=== PATIENT | female | born 1955 | race Two or more races ===

== ENCOUNTER → 2024-01-02 | Outpatient (CLI) | payer MEDICARE, MEDICAID, SELFPAY ==
[2024-01-02 08:52] LABS: Misc Send Out* See Sep Rpt
== END | disposition home or self-care (01) ==
PROVIDERS: PCP Family Medicine; Referring Provider Internal Medicine Hematology & Oncology; Visit Provider Internal Medicine Hematology & Oncology
DX: C18.2 Malignant neoplasm of ascending colon (principal)

== ENCOUNTER 2024-03-05 12:00 | Outpatient (RCR) | payer MEDICARE, MEDICAID, SELFPAY ==
[2024-02-14 16:16] LABS: Basophils # (Auto) 0.1 Thou/mm3 (0.0-0.2); Basophils % (Auto) 0 % (0-2.5); Eosinophils # (Auto) 0.3 Thou/mm3 (0.0-0.5); Eosinophils % (Auto) 2 % (0-10); Hematocrit 31.3 % (36.0-46.0); Immature Granulocytes % (Auto) 0 % (0-0); Immature Granulocytes Auto 0.04 Thou/mm3 (0.00-0.00); Lymphocytes # (Auto) 3.8 Thou/mm3 (1.0-4.8); Lymphocytes % (Auto) 30 % (10-50); Mean Corpuscular HGB Conc 31.9 g/dl (31.0-37.0); Mean Corpuscular Hemoglobin 25.8 pg (25.0-35.0); Mean Corpuscular Volume 81 fL (80-100); Monocytes % (Auto) 8 % (0-12); Neutrophils # (Auto) 7.4 Thou/mm3 (1.8-7.7); Neutrophils % (Auto) 59 % (37-80); Nucleated Red Blood Cell % 0 /100 WBC (0); Platelet Count 394 Thou/mm3 (140-440); RDW Standard Deviation 50.1 fL (36.4-46.3); Red Blood Count 3.87 Miln/mm3 (4.00-5.20); White Blood Count 12.6 Thou/mm3 (3.6-11.0)
[2024-02-14 16:36] LABS: Alanine Aminotransferase 13 U/L (10-49); Albumin/Globulin Ratio 0.9 (1.2-2.2); Alkaline Phosphatase 149 U/L (46-116); Anion Gap 7 (7-16); Aspartate Amino Transferase 27 U/L (0-34); BUN/Creatinine Ratio 20 Ratio (12-20); Bilirubin,Total 0.2 mg/dL (0.3-1.2); Blood Urea Nitrogen 28 mg/dL (9-23); Calcium 9.1 mg/dL (8.3-10.6); Calcium (Corrected) 9.1 mg/dL (8.5-10.1); Carbon Dioxide 25.7 mMol/L (20.0-31.0); Chloride 100 mMol/L (98-107); Creatinine (Component) 1.4 mg/dL (0.6-1.3); Globulin 4.4 gm/dL (2.3-3.5); Glucose 190 mg/dL (74-106); Osmolality,Calculated 276 (275-295); Potassium 3.9 mMol/L (3.4-5.1); Sodium 133 mMol/L (136-145); Total Protein 8.4 gm/dL (5.7-8.2); eGFR 41 See Note
[2024-02-15 09:23] LABS: Basophils # (Auto) 0.1 Thou/mm3 (0.0-0.2); Basophils % (Auto) 0 % (0-2.5); Eosinophils # (Auto) 0.2 Thou/mm3 (0.0-0.5); Eosinophils % (Auto) 2 % (0-10); Hematocrit 32.4 % (36.0-46.0); Hemoglobin 10.6 g/dL (12.0-16.0); Immature Granulocytes % (Auto) 0 % (0-0); Immature Granulocytes Auto 0.03 Thou/mm3 (0.00-0.00); Lymphocytes # (Auto) 2.8 Thou/mm3 (1.0-4.8); Lymphocytes % (Auto) 25 % (10-50); Mean Corpuscular HGB Conc 32.7 g/dl (31.0-37.0); Mean Corpuscular Hemoglobin 26.1 pg (25.0-35.0); Mean Corpuscular Volume 80 fL (80-100); Monocytes # (Auto) 0.7 Thou/mm3 (0.0-0.8); Monocytes % (Auto) 6 % (0-12); Neutrophils # (Auto) 7.5 Thou/mm3 (1.8-7.7); Neutrophils % (Auto) 67 % (37-80); Nucleated Red Blood Cell % 0 /100 WBC (0); Platelet Count 378 Thou/mm3 (140-440); RDW Standard Deviation 49.7 fL (36.4-46.3); Red Blood Count 4.06 Miln/mm3 (4.00-5.20); White Blood Count 11.3 Thou/mm3 (3.6-11.0)
[2024-02-15 09:42] LABS: Alanine Aminotransferase 23 U/L (10-49); Albumin, Serum 4.1 gm/dL (3.4-4.8); Albumin/Globulin Ratio 0.9 (1.2-2.2); Alkaline Phosphatase 152 U/L (46-116); Anion Gap 9 (7-16); Aspartate Amino Transferase 18 U/L (0-34); BUN/Creatinine Ratio 22 Ratio (12-20); Bilirubin,Total 0.2 mg/dL (0.3-1.2); Blood Urea Nitrogen 26 mg/dL (9-23); Calcium 9.5 mg/dL (8.3-10.6); Calcium (Corrected) 9.5 mg/dL (8.5-10.1); Chloride 100 mMol/L (98-107); Creatinine (Component) 1.2 mg/dL (0.6-1.3); Globulin 4.5 gm/dL (2.3-3.5); Glucose 191 mg/dL (74-106); Osmolality,Calculated 276 (275-295); Potassium 3.8 mMol/L (3.4-5.1); Sodium 133 mMol/L (136-145); Total Protein 8.6 gm/dL (5.7-8.2); eGFR 49 See Note
[2024-02-15 09:44] LABS: Carcinoembryonic Antigen 14.8 ng/mL (0.0-5.0); Folate 21.65 ng/mL (>5.38); Vitamin B12 483 pg/mL (211-911)
[2024-02-15 09:51] LABS: Ferritin 31 ng/mL (7.3-270.7); Total Iron Binding Capacity 323 mcg/dL (250-425)
[2024-02-15 10:02] LABS: Iron 33 mcg/dL (50-170); Percent Iron Saturation 10 % (20-55); Unsaturated Iron Binding 290 (225-295)
[2024-02-28 13:56] LABS: Basophils # (Auto) 0.1 Thou/mm3 (0.0-0.2); Basophils % (Auto) 1 % (0-2.5); Eosinophils # (Auto) 0.3 Thou/mm3 (0.0-0.5); Eosinophils % (Auto) 4 % (0-10); Hematocrit 29.2 % (36.0-46.0); Hemoglobin 9.7 g/dL (12.0-16.0); Immature Granulocytes % (Auto) 0 % (0-0); Immature Granulocytes Auto 0.03 Thou/mm3 (0.00-0.00); Lymphocytes # (Auto) 2.3 Thou/mm3 (1.0-4.8); Lymphocytes % (Auto) 31 % (10-50); Mean Corpuscular HGB Conc 33.2 g/dl (31.0-37.0); Mean Corpuscular Hemoglobin 26.4 pg (25.0-35.0); Mean Corpuscular Volume 80 fL (80-100); Monocytes # (Auto) 0.9 Thou/mm3 (0.0-0.8); Monocytes % (Auto) 13 % (0-12); Neutrophils # (Auto) 3.8 Thou/mm3 (1.8-7.7); Neutrophils % (Auto) 51 % (37-80); Nucleated Red Blood Cell % 0 /100 WBC (0); Platelet Count 307 Thou/mm3 (140-440); RDW Standard Deviation 43.8 fL (36.4-46.3); Red Blood Count 3.67 Miln/mm3 (4.00-5.20); White Blood Count 7.5 Thou/mm3 (3.6-11.0)
[2024-02-28 14:53] LABS: Alanine Aminotransferase 286 U/L (10-49); Albumin, Serum 4.1 gm/dL (3.4-4.8); Albumin/Globulin Ratio 1.1 (1.2-2.2); Alkaline Phosphatase 480 U/L (46-116); Anion Gap 7 (7-16); Aspartate Amino Transferase 296 U/L (0-34); BUN/Creatinine Ratio 18 Ratio (12-20); Bilirubin,Total 0.3 mg/dL (0.3-1.2); Blood Urea Nitrogen 21 mg/dL (9-23); Calcium 9.1 mg/dL (8.3-10.6); Calcium (Corrected) 9.1 mg/dL (8.5-10.1); Carbon Dioxide 25.5 mMol/L (20.0-31.0); Chloride 100 mMol/L (98-107); Creatinine (Component) 1.2 mg/dL (0.6-1.3); Globulin 3.9 gm/dL (2.3-3.5); Glucose 162 mg/dL (74-106); Osmolality,Calculated 271 (275-295); Potassium 3.8 mMol/L (3.4-5.1); Sodium 132 mMol/L (136-145); eGFR 49 See Note
[2024-02-28 14:57] LABS: Carcinoembryonic Antigen 21.1 ng/mL (0.0-5.0)
== END 2024-03-10 23:59 | disposition home or self-care (01) ==
LOC: SCTC 12:00
PROVIDERS: PCP Family Medicine; Referring Provider Family Medicine; Visit Provider Internal Medicine Hematology & Oncology
DX: Z51.11 Encounter for antineoplastic chemotherapy (principal); C18.0 Malignant neoplasm of cecum; C23 Malignant neoplasm of gallbladder; Z90.49 Acquired absence of other specified parts of digestive tract; E11.9 Type 2 diabetes mellitus without complications; Z79.4 Long term (current) use of insulin
CPT/HCPCS: 36591; 80053; 82378; 82607; 82728; 82746; 83540; 83550; 85025; 96367; 96368; 96411; 96413; 96415; 96416; 99213; A4216; J0640; J1100; J1453; J1642; J2405; J2997; J3490; J9190; J9263; G0463

== ENCOUNTER 2024-03-08 09:51 | Emergency (ER) | payer MEDICARE, MEDICAID, SELFPAY ==
[2024-03-08 09:52] VITALS: BMI 28.3
[2024-03-08 09:55] VITALS: BP 152/89; PULSE 123; RESP 20; TEMP 38.4; O2SAT 95
--- NOTE | 2024-03-08 10:14 | XR_ITS ---
Examination: PA lateral chest 2 views Technique: Upright PA lateral chest 2 views Exam date and time: March 08, 2024 1045 hrs. Indications: Fever today, diagnosis malignant neoplasm of the colon Findings: Normal heart size Suspicious for early left base pneumonia No significant cardiac enlargement No subclavian Port-A-Cath tip satisfactory position Mild osteopenia Impression: Suspicious for early left base pneumonia
--- NOTE | 2024-03-08 10:14 | EKG_ITS ---
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
--- NOTE | 2024-03-08 10:17 | EDNOTE_ITS ---
ED General RME/HPI General Chief complaint: General Adult/Misc Complain Stated complaint: NECK,BACK PAIN HX OF COLON CANCER Time Seen by Provider: 03/08/24 09:54 Arrival date/time: 03/08/24 09:51 Limitations: language barrier RME / HPI RME / HPI narrative: Chief Complaint: The patient was brought in by her son, who also serves as her manager switch, with complaints of body aches since yesterday. The patient was unaware that she had a fever. History of Present Illness: The patient has been experiencing body aches since yesterday and was not aware of a fever. She has a history of colon cancer but had to discontinue her chemotherapy treatment due to liver injury. Medical History: * Colon Cancer * Liver Injury (due to chemotherapy) * DM * HTN Related Data Home Medications ?Medication ?Instructions ?Recorded ?Confirmed insulin glargine 100 unit/mL (3 20 unit subcut HS 11/16/23 02/06/24 mL) subcutaneous pen (GateGuruaglar KwikPen U-100 Insulin) sitagliptin phosphate 100 mg 100 mg PO QDAY 11/16/23 02/06/24 tablet (Januvia) atorvastatin 40 mg tablet 20 mg PO QDAY 11/17/23 02/06/24 empagliflozin 25 mg tablet 25 mg PO QDAY 11/17/23 02/06/24 (Jardiance) losartan 50 mg-hydrochlorothiazide 1 tab PO QDAY 12/21/23 02/06/24 12.5 mg tablet Previous Rx's ?Medication ?Instructions ?Recorded ascorbic acid (vitamin C) 250 mg 500 mg (2 x 250 mg) PO BID #60 tabs 11/26/23 tablet (Vitamin C) zinc sulfate 50 mg zinc (220 mg) 220 mg (4.4 x 50 mg zinc (220 mg)) 11/26/23 capsule PO QDAY #30 caps docusate sodium 100 mg capsule 100 mg PO BID #30 caps 02/07/24 (Colace) hydrocodone 5 mg-acetaminophen 325 1 tab PO Q6H PRN pain (scale score 02/07/24 mg tablet 7-10) #15 tabs hydrocodone 5 mg-acetaminophen 325 1 tab PO BID PRN pain #7 tabs 03/08/24 mg tablet Allergies Allergy/AdvReac Type Severity Reaction Status Date / Time ibuprofen AdvReac Intermediate Gastrointestinal Verified 03/08/24 09:54 Upset Review of Systems Review of Systems Systems Reviewed: All systems reviewed, normal except as documented ED Exam General Limitations: Present language barrier General appearance: Present alert and in no apparent distress Head Head exam: Present atraumatic Eye Eye exam: Present normal appearance Neck Neck exam: Present normal inspection Respiratory Respiratory exam: Present normal lung sounds bilaterally Cardiovascular Cardiovascular exam: Present regular rate and normal rhythm Abdominal Exam Abdominal exam: Present soft and normal bowel sounds Back Exam Back exam: Present normal inspection Neurological Exam Neurological exam: Present alert and CN II-XII intact Psychiatric Psychiatric exam: Present depressed Skin Skin exam: Present normal color Course Quality Measures none Orders Category Date Time Status Bedside COVID-19 Antigen Test NOW Care 03/08/24 10:14 Active Bedside Influenza A&B Antigen Test NOW Care 03/08/24 10:16 Active Procurement Consultant STAT Care 03/08/24 10:14 Active Continuous Pulse Oximetry STAT Care 03/08/24 10:14 Completed EKG (ED ONLY) *Do not use* NOW Care 03/08/24 10:14 Completed EKG (ED Only) Stat Exams 03/08/24 10:14 Draft XR chest 2V Stat Exams 03/08/24 10:14 Taken B-Type Natriuretic Peptide Stat Lab 03/08/24 10:28 Completed Blood Culture (Lab) Stat Lab 03/08/24 10:28 Ordered CBC Stat Lab 03/08/24 10:28 Completed Comprehensive Metabolic Panel Stat Lab 03/08/24 10:28 Completed LDH (Lactate Dehydrogenase) Stat Lab 03/08/24 10:28 Completed Lactate (Lactic Acid) Stat Lab 03/08/24 10:28 Completed Lipase Stat Lab 03/08/24 10:28 Completed Magnesium Stat Lab 03/08/24 10:28 Completed Partial Thromboplastin Time Stat Lab 03/08/24 10:28 Completed Phosphorous Stat Lab 03/08/24 10:28 Completed Procalcitonin Stat Lab 03/08/24 10:28 Completed Prothrombin Time with INR Stat Lab 03/08/24 10:28 Completed Troponin I Stat Lab 03/08/24 10:28 Completed Urinalysis Stat Lab 03/08/24 10:14 Ordered Urine Culture Stat Lab 03/08/24 10:14 Ordered HYDROcodone/APAP 10/325 [[place] 10/325] Med 03/08/24 10:17 Discontinued 1 tab PO X1 ONE Vital Signs Vital signs: Vital Signs Temperature 101.1 F H 03/08/24 09:55 Pulse Rate 123 H 03/08/24 09:55 Respiratory Rate 20 03/08/24 09:55 Blood Pressure 152/89 H 03/08/24 09:55 Pulse Oximetry (%) 95 03/08/24 09:55 Oxygen Delivery Method Room Air 03/08/24 09:55 MDM Patient data External records reviewed:: [facility] previous records Clinical information provided by:: patient and family Social determinants that could affect healthcare access:: none Patient has the following chronic illnesses:: Colon cancer How is presenting disease/condition affected by chronic disease/condition?: c aused by Evaluation data The following diagnostics were reviewed and interpreted by me:: lab results Lab and/or radiology exams considered but not ordered:: White count is 19,000. Patient was not aware that she had a fever until she came to emergency department. COVID and influenza are negative. Patient has a generic type of virus that is causing her body aches. Does not have any emergency medical conditions at this time. EKG and labs other than the white count are unremarkable. Chest x-ray preliminary report showed no acute abnormality, including pneumonia. Return precautions were discussed. Patient's body aches is secondary to 2 conditions. 1 is her cancer and second is the viral illness Interpretation Summary: As above Medications Medications considered but not ordered:: Not applicable Medication administrations:: Medication Administration History Discontinued Medications Hydrocodone Bitart/Acetaminophen (Hydrocodone/Apap 10/325 Tab) 1 tab PO X1 ONE Stop: 03/08/24 10:18 Last Admin: 03/08/24 10:33 Dose: 1 tab Documented By: RD As noted Consultations Consultation(s) initiated? (list below): No Diagnosis Differential Diagnosis ED Complaint MDM: Viral illness, COVID, influenza, pneumonia Most likely diagnosis given after review of the tests above:: Viral syndrome Admission Indicated Admission indicated?: not indicated Explain why admission is indicated or not indicated:: Not applicable Admission Request Was there a request for admission?: No Disposition Plan Disposition Plan: Discharge Discharge Attestation Discharge Attestation: The patient and all family members were given an opportunity to ask questions and understood the discharge instructions. Discharge instructions specifically effects, indications for sooner follow up or return to the emergency department, and the expected course of current diagnosis. Patient condition: Stable Medical Decision Making Differential Diagnosis Differential Diagnosis: Viral illness, COVID, influenza, pneumonia Lab Data 03/08/24 10:28 03/08/24 10:28 Labs: Lab Results 03/08/24 Range/Units 10:28 WBC 19.6 H (3.6-11.0) Thou/mm3 RBC 4.49 (4.00-5.20) Miln/mm3 Hgb 11.7 L (12.0-16.0) g/dL Hct 35.8 L (36.0-46.0) % MCV 80 (80-100) fL MCH 26.1 (25.0-35.0) pg MCHC 32.7 (31.0-37.0) g/dl RDW Std Deviation 45.6 (36.4-46.3) fL Plt Count 461 H D (140-440) Thou/mm3 Neut % (Auto) 69 (37-80) % Lymph % (Auto) 18 (10-50) % [place] % (Auto) 11 (0-12) % Eos % (Auto) 1 (0-10) % Baso % (Auto) 1 (0-2.5) % Neut # (Auto) 13.6 H (1.8-7.7) Thou/mm3 Lymph # (Auto) 3.6 (1.0-4.8) Thou/mm3 [place] # (Auto) 2.2 H (0.0-0.8) Thou/mm3 Eos # (Auto) 0.1 (0.0-0.5) Thou/mm3 Baso # (Auto) 0.1 (0.0-0.2) Thou/mm3 Immature Gran # (Auto) 0.11 H (0.00-0.00) Thou/mm3 Absolute Nucleated RBC 0.00 (0.00-0.00) Thou/mm3 Immature Gran % 1 H (0-0) % Nucleated RBC % 0 (0) /100 WBC PT 11.1 (9.0-12.2) Seconds INR 1.0 (0.9-1.3) APTT 27.6 (22.0-36.0) Seconds Sodium 131 L (136-145) mMol/L Potassium 3.9 (3.4-5.1) mMol/L Chloride 98 (98-107) mMol/L Carbon Dioxide 25.0 (20.0-31.0) mMol/L Anion Gap 8 (7-16) BUN 25 H (9-23) mg/dL Creatinine 1.4 H (0.6-1.3) mg/dL Estim Creat Clear Calc 30.7 L (>60) mL/min eGFR 41 L (60 - ) See Note BUN/Creatinine Ratio 18 (12-20) Ratio Glucose 150 H (74-106) mg/dL Calculated Osmolality 270 L (275-295) Lactic Acid 1.5 (0.4-2.0) mMol/L Calcium 9.8 (8.3-10.6) mg/dL Corrected Calcium 9.8 (8.5-10.1) mg/dL Phosphorus 4.7 (2.4-5.1) mg/dL Magnesium 2.4 (1.6-2.6) mg/dL Total Bilirubin 0.5 (0.3-1.2) mg/dL AST 311 H (0-34) U/L ALT 290 H (10-49) U/L Alkaline Phosphatase 722 H (46-116) U/L Lactate Dehydrogenase 283 H (120-246) U/L Troponin I < 0.002 (0.0-0.045) ng/mL B-Natriuretic Peptide < 20 (0-100) pg/mL Total Protein 9.5 H (5.7-8.2) gm/dL Albumin 4.5 (3.4-4.8) gm/dL Globulin 5.0 H (2.3-3.5) gm/dL Albumin/Globulin Ratio 0.9 L (1.2-2.2) Lipase 165 H (12-53) U/L Procalcitonin 0.21 (0.0-0.49) ng/ml Discharge Plan Plan Patient Disposition: HOME (Self Care) Patient condition on transfer: Stable Prescriptions/Referrals Prescriptions/Med Rec: New hydrocodone-acetaminophen 5-325 mg tablet 1 tab PO BID MDD 3 PRN (Reason: pain) Qty: 7 0RF No Action ascorbic acid (vitamin C) [Vitamin C] 250 mg Tablet 500 mg PO BID Qty: 60 0RF zinc sulfate 50 mg zinc (220 mg) Capsule 220 mg PO QDAY Qty: 30 0RF docusate sodium [Colace] 100 mg capsule 100 mg PO BID Qty: 30 0RF hydrocodone-acetaminophen 5-325 mg tablet 1 tab PO Q6H MDD 4 PRN (Reason: pain (scale score 7-10)) Qty: 15 0RF Januvia 100 mg tablet 100 mg PO QDAY Patient Comments: TAKE 1 TABLET BY MOUTH EVERY DAY insulin glargine [Basaglar KwikPen U-100 Insulin] 100 unit/mL (3 mL) insulin pen 20 unit SUBCUT HS Patient Comments: INJECT 10 UNITS SUBCUTANEOUS EVERY DAY IN THE EVENING atorvastatin 40 mg tablet 20 mg PO QDAY Patient Comments: TAKE 1 TABLET BY MOUTH EVERY DAY Jardiance 25 mg tablet 25 mg PO QDAY Patient Comments: TAKE 1 TABLET BY MOUTH EVERY DAY FOR 90 DAYS losartan-hydrochlorothiazide 50-12.5 mg Tablet 1 tab PO QDAY Referrals: Rd Hickey MD [Primary Care Provider] - In 1 week Problem List Clinical Impression: Acute viral syndrome Patient/Caregiver Discharge Instructions Education Materials: ED Viral Syndrome (Adult) Print Language: Paraguayan Stand Alone Forms: Vielka Award Info., Patient Portal Info Letter
[2024-03-08] MEDS: HYDROcodone/APAP 10/325 TAB PO (10:33)
[2024-03-08 10:36] LABS: Lactate (Lactic Acid) 1.5 mMol/L (0.4-2.0)
[2024-03-08 10:39] VITALS: PULSE 123
[2024-03-08 10:41] LABS: Basophils # (Auto) 0.1 Thou/mm3 (0.0-0.2); Basophils % (Auto) 1 % (0-2.5); Eosinophils # (Auto) 0.1 Thou/mm3 (0.0-0.5); Eosinophils % (Auto) 1 % (0-10); Hematocrit 35.8 % (36.0-46.0); Hemoglobin 11.7 g/dL (12.0-16.0); Immature Granulocytes % (Auto) 1 % (0-0); Immature Granulocytes Auto 0.11 Thou/mm3 (0.00-0.00); Lymphocytes # (Auto) 3.6 Thou/mm3 (1.0-4.8); Lymphocytes % (Auto) 18 % (10-50); Mean Corpuscular HGB Conc 32.7 g/dl (31.0-37.0); Mean Corpuscular Hemoglobin 26.1 pg (25.0-35.0); Mean Corpuscular Volume 80 fL (80-100); Monocytes # (Auto) 2.2 Thou/mm3 (0.0-0.8); Monocytes % (Auto) 11 % (0-12); Neutrophils # (Auto) 13.6 Thou/mm3 (1.8-7.7); Neutrophils % (Auto) 69 % (37-80); Nucleated Red Blood Cell % 0 /100 WBC (0); Platelet Count 461 Thou/mm3 (140-440); RDW Standard Deviation 45.6 fL (36.4-46.3); Red Blood Count 4.49 Miln/mm3 (4.00-5.20); White Blood Count 19.6 Thou/mm3 (3.6-11.0)
[2024-03-08 10:56] LABS: B-Type Natriuretic Peptide < 20 pg/mL (0-100)
[2024-03-08 10:58] LABS: Partial Thromboplastin Time 27.6 Seconds (22.0-36.0); Prothrombin Time 11.1 Seconds (9.0-12.2)
[2024-03-08 10:59] LABS: Alanine Aminotransferase 290 U/L (10-49); Albumin, Serum 4.5 gm/dL (3.4-4.8); Albumin/Globulin Ratio 0.9 (1.2-2.2); Alkaline Phosphatase 722 U/L (46-116); Anion Gap 8 (7-16); Aspartate Amino Transferase 311 U/L (0-34); BUN/Creatinine Ratio 18 Ratio (12-20); Bilirubin,Total 0.5 mg/dL (0.3-1.2); Blood Urea Nitrogen 25 mg/dL (9-23); Calcium 9.8 mg/dL (8.3-10.6); Calcium (Corrected) 9.8 mg/dL (8.5-10.1); Chloride 98 mMol/L (98-107); Creatinine (Component) 1.4 mg/dL (0.6-1.3); Estimated Creatinine Clearance 30.7 mL/min (>60); Glucose 150 mg/dL (74-106); Lipase 165 U/L (12-53); Magnesium 2.4 mg/dL (1.6-2.6); Osmolality,Calculated 270 (275-295); Phosphorous 4.7 mg/dL (2.4-5.1); Potassium 3.9 mMol/L (3.4-5.1); Sodium 131 mMol/L (136-145); Total Protein 9.5 gm/dL (5.7-8.2); Troponin I < 0.002 ng/mL (0.0-0.045); eGFR 41 See Note
[2024-03-08 11:08] VITALS: BP 138/86; PULSE 113; RESP 16; TEMP 38.1; O2SAT 94
[2024-03-08 11:13] LABS: LDH (Lactate Dehydrogenase) 283 U/L (120-246); Procalcitonin 0.21 ng/ml (0.0-0.49)
[2024-03-08 12:09] LABS: Collection Type, Urine Clean Catch
[2024-03-08 12:14] LABS: Bilirubin,Urine Negative (Negative); Blood,Urine Negative (Negative); Clarity,Urine Clear (Clear/Hazy); Color,Urine Yellow (Lt Yel-Yel); Glucose, Urine 4+ (Negative); Ketones,Urine Negative (Negative); Leukocyte Esterase,Urine Negative (Negative); Nitrite,Urine Negative (Negative); Protein,Urine 1+ (Neg - Trace); RBC,Urine 1 /hpf (0-3); Squamous Epithelial Cell,Urine 1 /hpf (0-5); Urobilinogen,Urine Negative mg/dL (0.0-1.0); WBC,Urine 2 /hpf (0-5)
[2024-03-08 13:00] VITALS: BP 114/76; PULSE 94; RESP 16; TEMP 36.8; O2SAT 93
--- NOTE | 2024-03-08 13:20 | PC.NURSE ---
Patient states pain 10/10. Received verbal order from provider for 1mg Hydromorphone IV.
[2024-03-08] MEDS: ONDANSETRON INJ 2 MG/ML INJ 2 ML 4 MG IV (13:35)
[2024-03-08] MEDS: HYDROmorphone INJ 2 MG/ML VIAL 1 MG IVP (13:36)
== END 2024-03-08 14:11 | disposition home or self-care (01) ==
PROVIDERS: Emergency Provider Emergency Medicine; PCP Family Medicine
DX: B34.9 Viral infection, unspecified (principal); R00.0 Tachycardia, unspecified
CPT/HCPCS: 36415; 71046; 80053; 81001; 83605; 83615; 83690; 83735; 83880; 84100; 84145; 84484; 85025; 85610; 85730; 87040; 87086; 87400; 87811; 93005; 96374; 96375; 99284; J2405; J3490; A9270

== ENCOUNTER → 2024-03-14 | Outpatient (CLI) | payer MEDICARE, MEDICAID, SELFPAY ==
--- NOTE | 2024-03-14 11:30 | XR_ITS ---
Examination: CT chest with intravenous contrast CT abdomen with intravenous contrast CT pelvis with intravenous contrast 2-D coronal and sagittal reconstructions Time of exam: March 14, [address] chest November 24, 2023, PET CT scan November 17, 2023 INDICATIONS: Diagnosis malignant neoplasm ascending colon, PET/CT scan November 17, 2023 12 mm hypermetabolic focus anterior abdominal wall, cervical lymphadenopathy, restaging, currently undergoing treatment CTDI: vol (mGy) : 18.7 DLP: (mGycm): 802 Technique: Multiple axial images of the chest, abdomen and pelvis with intravenous contrast, 3.0 mm slice thickness. Images obtained post intravenous injection Isovue 370 60 cc. 2-D sagittal and coronal reconstructions. Low dose protocols were performed. One or more of the following dose reduction techniques were used; automated exposure control, adjustment of the mA and/or KV according to patient size, use of iterative reconstruction technique. Findings: No thoracic aortic aneurysmal dilatation No pulmonary artery emboli No paratracheal tracheobronchial or bronchopulmonary adenopathy Mild vascular congestion No pneumonia or pulmonary edema or pleural disease or pulmonary nodules No visualized liver lesions Spleen not enlarged No pancreatic or adrenal mass No periaortic pericaval lymphadenopathy No hydronephrosis No pericecal inflammatory change No pelvic lymphadenopathy Retroverted uterus No adnexal mass Contracted urinary bladder Moderate osteopenia Grade 1 anterolisthesis L4 on L5, no osseous metastatic disease IMPRESSION: No mediastinal lymphadenopathy No pneumonia, pulmonary edema, pleural disease or pulmonary nodules Negative for hepatic metastases No abdominal or pelvic lymphadenopathy No osseous metastatic disease
== END | disposition home or self-care (01) ==
PROVIDERS: PCP Family Medicine; Referring Provider Internal Medicine Hematology & Oncology; Visit Provider Internal Medicine Hematology & Oncology
DX: C18.2 Malignant neoplasm of ascending colon (principal); C23 Malignant neoplasm of gallbladder
CPT/HCPCS: 71260; 74177; A4649; Q9967

== ENCOUNTER 2024-04-03 10:43 | Emergency (ER) | payer MEDICARE, MEDICAID, SELFPAY ==
--- NOTE | 2024-04-03 | XR_ITS ---
MRI abdomen, without contrast. MRCP Date and time of exam: April 03, 2024 1446 hrs. Indications: Colon cancer diagnosis with elevated liver function values on laboratory examination today Technique: Multiple axial and coronal images of the abdomen have been obtained with the Siemens 1.5T MRI scanner. Images obtained included T1 weighted transverse images, T2-weighted transverse images, T2-weighted transverse images fat-suppressed, T2 weighted haste fat suppressed transverse images, T1 weighted images, in and out of phase images, T2-weighted coronal images, breath hold, T2 weighted haze coronal images as well as T2 weighted coronal thick slab images, MRCP. Findings: No focal liver lesions, no intrahepatic biliary tract dilatation Gallbladder not visualized Normal common hepatic common bile duct no common hepatic or common bile duct stones No pancreatic mass or peripancreatic edema Spleen is not enlarged 21 mm mid left renal calculus No hydronephrosis Aorta normal size No ascites Impression: No focal liver lesions or intrahepatic biliary tract dilatation Normal common hepatic common bile duct Negative for pancreatitis
[2024-04-03 11:16] VITALS: BP 140/85; PULSE 100; RESP 17; TEMP 37.1; O2SAT 97; BMI 29.0
--- NOTE | 2024-04-03 11:25 | PD.EDRME ---
Rapid Medical Screening Exam RME Arrival date/time: 04/03/24 10:43 68-year-old female with colon cancer currently on chemotherapy with no stated complaints presents emergency department today stating that the cancer treatment center sent to the ER for further evaluation for abnormal lab work Chief Complaint: General Adult/Misc Complain Vital signs: Vital Signs Temperature 98.7 F 04/03/24 11:16 Pulse Rate 100 04/03/24 11:16 Respiratory Rate 17 04/03/24 11:16 Blood Pressure 140/85 H 04/03/24 11:16 Pulse Oximetry (%) 97 04/03/24 11:16 Oxygen Delivery Method Room Air 04/03/24 11:16
[2024-04-03 11:50] LABS: Basophils # (Auto) 0.1 Thou/mm3 (0.0-0.2); Basophils % (Auto) 1 % (0-2.5); Eosinophils # (Auto) 0.2 Thou/mm3 (0.0-0.5); Eosinophils % (Auto) 2 % (0-10); Hematocrit 32.9 % (36.0-46.0); Hemoglobin 10.7 g/dL (12.0-16.0); Immature Granulocytes % (Auto) 0 % (0-0); Immature Granulocytes Auto 0.04 Thou/mm3 (0.00-0.00); Lymphocytes % (Auto) 24 % (10-50); Mean Corpuscular HGB Conc 32.5 g/dl (31.0-37.0); Mean Corpuscular Hemoglobin 26.3 pg (25.0-35.0); Mean Corpuscular Volume 81 fL (80-100); Monocytes # (Auto) 0.9 Thou/mm3 (0.0-0.8); Monocytes % (Auto) 7 % (0-12); Neutrophils # (Auto) 8.2 Thou/mm3 (1.8-7.7); Neutrophils % (Auto) 66 % (37-80); Nucleated Red Blood Cell % 0 /100 WBC (0); Platelet Count 411 Thou/mm3 (140-440); RDW Standard Deviation 46.9 fL (36.4-46.3); Red Blood Count 4.07 Miln/mm3 (4.00-5.20); White Blood Count 12.4 Thou/mm3 (3.6-11.0)
[2024-04-03 12:09] LABS: Alanine Aminotransferase 173 U/L (10-49); Albumin, Serum 4.4 gm/dL (3.4-4.8); Albumin/Globulin Ratio 0.8 (1.2-2.2); Alkaline Phosphatase 577 U/L (46-116); Anion Gap 7 (7-16); Aspartate Amino Transferase 222 U/L (0-34); BUN/Creatinine Ratio 23 Ratio (12-20); Bilirubin,Total 0.5 mg/dL (0.3-1.2); Blood Urea Nitrogen 32 mg/dL (9-23); Calcium 9.6 mg/dL (8.3-10.6); Calcium (Corrected) 9.6 mg/dL (8.5-10.1); Carbon Dioxide 27.1 mMol/L (20.0-31.0); Chloride 96 mMol/L (98-107); Creatinine (Component) 1.4 mg/dL (0.6-1.3); Estimated Creatinine Clearance 29.8 mL/min (>60); Globulin 5.7 gm/dL (2.3-3.5); Glucose 142 mg/dL (74-106); Lipase 83 U/L (12-53); Osmolality,Calculated 269 (275-295); Potassium 4.4 mMol/L (3.4-5.1); Sodium 130 mMol/L (136-145); Total Protein 10.1 gm/dL (5.7-8.2); eGFR 41 See Note
[2024-04-03 12:43] LABS: Collection Type, Urine Clean Catch
[2024-04-03 12:52] LABS: HCG Qualitative,Urine Negative
[2024-04-03 12:58] LABS: Bacteria,Urine Rare; Bilirubin,Urine Negative (Negative); Blood,Urine Negative (Negative); Clarity,Urine Clear (Clear/Hazy); Color,Urine Lt-Yellow (Lt Yel-Yel); Glucose, Urine 4+ (Negative); Ketones,Urine Negative (Negative); Leukocyte Esterase,Urine Positive (Negative); Nitrite,Urine Negative (Negative); Protein,Urine Negative (Neg - Trace); RBC,Urine 5 /hpf (0-3); Specific Gravity,Urine 1.021 (1.001-1.035); Squamous Epithelial Cell,Urine < 1 /hpf (0-5); Urobilinogen,Urine Negative mg/dL (0.0-1.0); WBC,Urine 13 /hpf (0-5)
[2024-04-03 12:59] LABS: Culture Indicated,Urine Yes
[2024-04-03 13:30] VITALS: BP 141/90; PULSE 106; RESP 16; O2SAT 100
--- NOTE | 2024-04-03 13:30 | PC.NURSE ---
pt sent from cancer treatment center due to elevated liver enzymes. pt pt and family liver enzymes have been elevated since first chemo given in february
--- NOTE | 2024-04-03 13:40 | EDNOTE_ITS ---
<Statement entered by Sintia Bermeo MD - 04/03/24 16:20> As co-signing physician, I was present and available for consult prn. I concur with the plan and care as documented by the midlevel provider. ED General RME/HPI General Chief complaint: General Adult/Misc Complain Stated complaint: Sent by oncologist for elevated liver enzymes/kidn Time Seen by Provider: 04/03/24 13:34 Arrival date/time: 04/03/24 10:43 CC: Concern for an occluded biliary duct HPI patient referred from the oncologist, Dr. Garcia for the patient's having recurrent elevated liver enzymes there was a concern where the patient had biliary obstruction patient has a history of colon cancer with increased LFTs. Currently the patient has no pain whatsoever including chest pain shortness of breath or difficulty breathing no headache abdominal pain back pain no diarrhea or constipation. RME / HPI RME / HPI narrative: 04/03/24 10:43 68-year-old female with colon cancer currently on chemotherapy with no stated complaints presents emergency department today stating that the cancer treatment center sent to the ER for further evaluation for abnormal lab work Related Data Home Medications ?Medication ?Instructions ?Recorded ?Confirmed insulin glargine 100 unit/mL (3 20 unit subcut HS 11/16/23 02/06/24 mL) subcutaneous pen (Basaglar KwikPen U-100 Insulin) sitagliptin phosphate 100 mg 100 mg PO QDAY 11/16/23 02/06/24 tablet (Januvia) atorvastatin 40 mg tablet 20 mg PO QDAY 11/17/23 02/06/24 empagliflozin 25 mg tablet 25 mg PO QDAY 11/17/23 02/06/24 (Jardiance) losartan 50 mg-hydrochlorothiazide 1 tab PO QDAY 12/21/23 02/06/24 12.5 mg tablet Previous Rx's ?Medication ?Instructions ?Recorded ascorbic acid (vitamin C) 250 mg 500 mg (2 x 250 mg) PO BID #60 tabs 11/26/23 tablet (Vitamin C) zinc sulfate 50 mg zinc (220 mg) 220 mg (4.4 x 50 mg zinc (220 mg)) 11/26/23 capsule PO QDAY #30 caps docusate sodium 100 mg capsule 100 mg PO BID #30 caps 02/07/24 (Colace) hydrocodone 5 mg-acetaminophen 325 1 tab PO Q6H PRN pain (scale score 02/07/24 mg tablet 7-10) #15 tabs hydrocodone 5 mg-acetaminophen 325 1 tab PO BID PRN pain #7 tabs 03/08/24 mg tablet Allergies Allergy/AdvReac Type Severity Reaction Status Date / Time No Known Allergies Allergy Verified 04/03/24 10:46 Review of Systems Review of Systems Narrative Review of Systems: GEN: No fever, no chills, no weight loss EYES: No discharge, no visual changes, no pain HEENT: No ear pain, no congestion, no sore throat PULM: No shortness of breath, no cough, no congestion CV: No chest pain, no dyspnea on exertion, no palpitations GI: No nausea, no vomiting, no diarrhea, no pain, no constipation : No frequency, no urgency, no dysuria MUSC/SKEL: No joint pain, no back pain SKIN: No rash PSYCH: No hallucinations, no depression HEME/LYMPH: No easy bleeding or bruising tendencies NEURO: No weakness, no headache Past Medical History Past Medical History NEUROLOGIC: Negative Neurological Disorders or Seizures CARDIAC: Positive Cardiac Disorders, Hypercholesterolemia and Hypertension; Negative Congestive Heart Failure RESPIRATORY: Negative Chronic Obstructive Pulmonary Disease (COPD) or Asthma GASTROINTESTINAL: Positive Gastrointestinal Disorders, Diverticulosis, Colorectal Cancer (2016) and Hemorrhoids; Negative Hepatitis GENITOURINARY: Negative Genitourinary Disorders or Renal Disease REPRODUCTIVE: Positive Previous Pregnancies (x1); Negative Pelvic Inflammatory Disease MUSCULOSKELETAL: Positive Carpal Tunnel Syndrome (bilateral); Negative Musculoskeletal Disorders ENT: Positive Cataracts ENDOCRINE: Positive Endocrine Disorders and Diabetes Mellitus Type 2; Negative Diabetes Mellitus Type 1 HEMATOLOGIC: Positive Blood Disorders and Anemia; Negative Sickle Cell Disease PSYCHO/SOCIAL: Positive Anxiety OTHER HISTORY: Positive Hospitalization (Colon cancer), Shingles (3 yrs ago), Anesthesia Reactions (Excessvie Phlem), Chicken Pox, Cancer and Colorectal Cancer (2016); Negative Autoimmune Disease, Down Syndrome, Developmental Delay, Falls, Blood Transfusions or Blood Transfusion Reaction Family History FAMILY HISTORY: Positive Family Surgery; Negative Family Psychiatric Problems, Family Respiratory Disorders, Family Cardiac Disorders, Family Gastrointestinal Problems, Family Cancer or Family Anesthesia Reaction Surgical History SURGICAL: Positive Bowel Surgery (colon resection), Arthroscopy (left knee) and Section (x1) Social History SMOKING STATUS: Never smoker SECOND HAND EXPOSURE: No SUBSTANCE USE: does not use ED Exam Narrative Physical exam: [General: Not in any acute distress Head normocephalic HEENT: Within acceptable limits Neck is supple nontender Chest equal chest rise nontender to palpation Respiratory: Clear to auscultation no wheezes crackles or rubs CV: Rate rhythm is regular no murmurs rubs or clicks Abdomen is soft nontender no masses positive bowel sounds all 4 quadrants Back: No CVA tenderness no spinous process tenderness from cervical spine thoracic and lumbar spine Skin: Intact no petechiae rash induration ulceration or crepitus Extremities: Moving all extremity against resistance cap refill less than 2 seconds neurosensory intact Neuro: Awake alert oriented x3 Glascow coma 15 no focal deficits] Course Quality Measures none Orders Category Date Time Status MRI Screening NOW Care 04/03/24 13:35 Active MR MRCP Stat Exams 04/03/24 Completed CBC Stat Lab 04/03/24 11:32 Completed Comprehensive Metabolic Panel Stat Lab 04/03/24 11:32 Completed HCG Qualitative,Urine Stat Lab 04/03/24 11:49 Completed Lipase Stat Lab 04/03/24 11:32 Completed UA, C/S IF [Urinalysis, C/S if Indicated] Stat Lab 04/03/24 11:49 Completed Urine Culture Stat Lab 04/03/24 11:49 Received Vital Signs Vital signs: Vital Signs Temperature 98.7 F 04/03/24 11:16 Pulse Rate 100 04/03/24 11:16 Respiratory Rate 17 04/03/24 11:16 Blood Pressure 140/85 H 04/03/24 11:16 Pulse Oximetry (%) 97 04/03/24 11:16 Oxygen Delivery Method Room Air 04/03/24 11:16 [facility] Patient data External records reviewed:: [facility] previous records Clinical information provided by:: patient Social determinants that could affect healthcare access:: none Patient has the following chronic illnesses:: Colon cancer How is presenting disease/condition affected by chronic disease/condition?: e xacerbated by Evaluation data The following diagnostics were reviewed and interpreted by me:: lab results, radiology exam(s) and EKG tracing(s) Lab and/or radiology exams considered but not ordered:: CBC shows a leukocytosis of 12.7 with an H&H stable anemia of 10 and 32 no thrombocytopenia CMP shows a sodium 130 potassium of 4.4 chloride of 96 CO2 of 27.1 BUN 32 creatinine 1.4 glucose of 142 T. bili of 0.5, AST of 222 ALT 174 alk phos of 577, these are unchanged with the last for low blood draws. Lipase of 83 Urine is negative for UTI Interpretation Summary: MRCP is negative for focal liver lesions intrahepatic biliary duct dilatation there is a normal common hepatic bile duct and is negative for pancreatitis. Patient's prior hepatitis panel is nonreactive. This time patient will be discharged home to follow-up with oncologist. Patient has no symptoms attempted to contact Dr. Garcia, oncologist but the cancer treatment center is now closed. Patient will be discharged home to follow-up outpatient. If there is a worsening of symptoms he can return the emergency room for reevaluation. Medications Medications considered but not ordered:: None Medication administrations:: None Consultations Consultation(s) initiated? (list below): No Diagnosis Differential Diagnosis ED Complaint MDM: Transaminitis biliary obstruction pancreatitis Most likely diagnosis given after review of the tests above:: Transaminitis Admission Indicated Admission indicated?: not indicated Explain why admission is indicated or not indicated:: Stable for outpatient follow-up Admission Request Was there a request for admission?: No Disposition Plan Disposition Plan: Discharge Discharge Attestation Discharge Attestation: The patient and all family members were given an opportunity to ask questions and understood the discharge instructions. Discharge instructions specifically effects, indications for sooner follow up or return to the emergency department, and the expected course of current diagnosis. Patient condition: Stable Medical Decision Making Differential Diagnosis Differential Diagnosis: Transaminitis biliary obstruction pancreatitis Lab Data 04/03/24 11:32 04/03/24 11:32 Labs: Lab Results 04/03/24 04/03/24 Range/Units 11:32 11:49 WBC 12.4 H (3.6-11.0) Thou/mm3 RBC 4.07 (4.00-5.20) Miln/mm3 Hgb 10.7 L (12.0-16.0) g/dL Hct 32.9 L (36.0-46.0) % MCV 81 (80-100) fL MCH 26.3 (25.0-35.0) pg MCHC 32.5 (31.0-37.0) g/dl RDW Std Deviation 46.9 H (36.4-46.3) fL Plt Count 411 (140-440) Thou/mm3 Neut % (Auto) 66 (37-80) % Lymph % (Auto) 24 (10-50) % [place] % (Auto) 7 (0-12) % Eos % (Auto) 2 (0-10) % Baso % (Auto) 1 (0-2.5) % Neut # (Auto) 8.2 H (1.8-7.7) Thou/mm3 Lymph # (Auto) 3.0 (1.0-4.8) Thou/mm3 [place] # (Auto) 0.9 H (0.0-0.8) Thou/mm3 Eos # (Auto) 0.2 (0.0-0.5) Thou/mm3 Baso # (Auto) 0.1 (0.0-0.2) Thou/mm3 Immature Gran # (Auto) 0.04 H (0.00-0.00) Thou/mm3 Absolute Nucleated RBC 0.00 (0.00-0.00) Thou/mm3 Immature Gran % 0 (0-0) % Nucleated RBC % 0 (0) /100 WBC Sodium 130 L (136-145) mMol/L Potassium 4.4 (3.4-5.1) mMol/L Chloride 96 L (98-107) mMol/L Carbon Dioxide 27.1 (20.0-31.0) mMol/L Anion Gap 7 (7-16) BUN 32 H (9-23) mg/dL Creatinine 1.4 H (0.6-1.3) mg/dL Estim Creat Clear Calc 29.8 L (>60) mL/min eGFR 41 L (60 - ) See Note BUN/Creatinine Ratio 23 H (12-20) Ratio Glucose 142 H (74-106) mg/dL Calculated Osmolality 269 L (275-295) Calcium 9.6 (8.3-10.6) mg/dL Corrected Calcium 9.6 (8.5-10.1) mg/dL Total Bilirubin 0.5 (0.3-1.2) mg/dL AST 222 H (0-34) U/L ALT 173 H (10-49) U/L Alkaline Phosphatase 577 H (46-116) U/L Total Protein 10.1 H (5.7-8.2) gm/dL Albumin 4.4 (3.4-4.8) gm/dL Globulin 5.7 H (2.3-3.5) gm/dL Albumin/Globulin Ratio 0.8 L (1.2-2.2) Lipase 83 H (12-53) U/L Ur Collection Type Clean Catch Urine Color Lt-Yellow (Lt Yel-Yel) Urine Clarity Clear (Clear/Hazy) Urine pH 6.0 (5.0-7.0) Ur Specific [place] 1.021 (1.001-1.035) Urine Protein Negative (Neg - Trace) Urine Glucose (UA) 4+ A (Negative) Urine Ketones Negative (Negative) Urine Blood Negative (Negative) Urine Nitrite Negative (Negative) Urine Bilirubin Negative (Negative) Urine Urobilinogen (Auto) Negative (0.0-1.0) mg/dL Ur Leukocyte Esterase Positive (Negative) Urine RBC 5 H (0-3) /hpf Urine WBC 13 H (0-5) /hpf Ur Squamous Epith Cells < 1 (0-5) /hpf Urine Bacteria Rare (None) Ur Culture Indicated? Yes Urine HCG, Qual Negative Discharge Plan Plan Patient Disposition: HOME (Self Care) Patient condition on transfer: Stable Prescriptions/Referrals Prescriptions/Med Rec: No Action ascorbic acid (vitamin C) [Vitamin C] 250 mg Tablet 500 mg PO BID Qty: 60 0RF zinc sulfate 50 mg zinc (220 mg) Capsule 220 mg PO QDAY Qty: 30 0RF docusate sodium [Colace] 100 mg capsule 100 mg PO BID Qty: 30 0RF hydrocodone-acetaminophen 5-325 mg tablet 1 tab PO Q6H MDD 4 PRN (Reason: pain (scale score 7-10)) Qty: 15 0RF hydrocodone-acetaminophen 5-325 mg tablet 1 tab PO BID MDD 3 PRN (Reason: pain) Qty: 7 0RF Januvia 100 mg tablet 100 mg PO QDAY Patient Comments: TAKE 1 TABLET BY MOUTH EVERY DAY insulin glargine [Basaglar KwikPen U-100 Insulin] 100 unit/mL (3 mL) insulin pen 20 unit SUBCUT HS Patient Comments: INJECT 10 UNITS SUBCUTANEOUS EVERY DAY IN THE EVENING atorvastatin 40 mg tablet 20 mg PO QDAY Patient Comments: TAKE 1 TABLET BY MOUTH EVERY DAY Jardiance 25 mg tablet 25 mg PO QDAY Patient Comments: TAKE 1 TABLET BY MOUTH EVERY DAY FOR 90 DAYS losartan-hydrochlorothiazide 50-12.5 mg Tablet 1 tab PO QDAY Referrals: Rd Hickey MD [Primary Care Provider] - In 1 week Problem List Clinical Impression: Transaminitis Patient/Caregiver Discharge Instructions Print Language: Turkmen Stand Alone Forms: Vielka Award Info., Patient Portal Info Letter, Work/School Release PA/PRODUCTION CLOTH CUTTER Supervising Physician PA/PRODUCTION CLOTH CUTTER Supervising Physician: Clive Selby ENP
[2024-04-03 15:14] VITALS: BP 131/85; PULSE 90; RESP 16; TEMP 36.7; O2SAT 100
== END 2024-04-03 15:53 | disposition home or self-care (01) ==
PROVIDERS: Nurse Practitioner Primary Care; Emergency Provider Emergency Medicine; PCP Family Medicine
DX: R74.01 Elevation of levels of liver transaminase levels (principal); Z85.048 Personal history of other malignant neoplasm of rectum, rectosigmoid junction, and anus
CPT/HCPCS: 36415; 80053; 81001; 81025; 83690; 85025; 87086; 99284; S8037; 74181

== ENCOUNTER 2024-04-09 14:20 | Outpatient (RCR) | payer MEDICARE, MEDICAID, SELFPAY ==
[2024-03-12 10:09] LABS: Basophils # (Auto) 0.1 Thou/mm3 (0.0-0.2); Basophils % (Auto) 1 % (0-2.5); Eosinophils # (Auto) 0.4 Thou/mm3 (0.0-0.5); Eosinophils % (Auto) 3 % (0-10); Hemoglobin 10.4 g/dL (12.0-16.0); Immature Granulocytes % (Auto) 0 % (0-0); Immature Granulocytes Auto 0.04 Thou/mm3 (0.00-0.00); Lymphocytes # (Auto) 2.5 Thou/mm3 (1.0-4.8); Lymphocytes % (Auto) 20 % (10-50); Mean Corpuscular HGB Conc 32.5 g/dl (31.0-37.0); Mean Corpuscular Hemoglobin 26.1 pg (25.0-35.0); Mean Corpuscular Volume 80 fL (80-100); Monocytes # (Auto) 1.3 Thou/mm3 (0.0-0.8); Monocytes % (Auto) 10 % (0-12); Neutrophils # (Auto) 8.3 Thou/mm3 (1.8-7.7); Neutrophils % (Auto) 66 % (37-80); Nucleated Red Blood Cell % 0 /100 WBC (0); Platelet Count 412 Thou/mm3 (140-440); RDW Standard Deviation 44.5 fL (36.4-46.3); Red Blood Count 3.98 Miln/mm3 (4.00-5.20); White Blood Count 12.6 Thou/mm3 (3.6-11.0)
[2024-03-12 10:26] LABS: Alanine Aminotransferase 279 U/L (10-49); Albumin, Serum 4.3 gm/dL (3.4-4.8); Albumin/Globulin Ratio 0.9 (1.2-2.2); Alkaline Phosphatase 792 U/L (46-116); Anion Gap 11 (7-16); Aspartate Amino Transferase 435 U/L (0-34); BUN/Creatinine Ratio 19 Ratio (12-20); Bilirubin,Total 0.6 mg/dL (0.3-1.2); Blood Urea Nitrogen 23 mg/dL (9-23); Calcium 9.3 mg/dL (8.3-10.6); Calcium (Corrected) 9.3 mg/dL (8.5-10.1); Carbon Dioxide 27.2 mMol/L (20.0-31.0); Chloride 94 mMol/L (98-107); Creatinine (Component) 1.2 mg/dL (0.6-1.3); Glucose 123 mg/dL (74-106); Osmolality,Calculated 269 (275-295); Potassium 3.9 mMol/L (3.4-5.1); Sodium 132 mMol/L (136-145); Total Protein 9.3 gm/dL (5.7-8.2); eGFR 49 See Note
[2024-03-12 10:34] LABS: Carcinoembryonic Antigen 8.6 ng/mL (0.0-5.0)
[2024-03-19 14:38] LABS: Basophils # (Auto) 0.1 Thou/mm3 (0.0-0.2); Basophils % (Auto) 1 % (0-2.5); Eosinophils # (Auto) 0.4 Thou/mm3 (0.0-0.5); Eosinophils % (Auto) 3 % (0-10); Hematocrit 30.9 % (36.0-46.0); Hemoglobin 9.9 g/dL (12.0-16.0); Immature Granulocytes % (Auto) 0 % (0-0); Immature Granulocytes Auto 0.04 Thou/mm3 (0.00-0.00); Lymphocytes # (Auto) 4.1 Thou/mm3 (1.0-4.8); Lymphocytes % (Auto) 33 % (10-50); Mean Corpuscular Hemoglobin 26.4 pg (25.0-35.0); Mean Corpuscular Volume 82 fL (80-100); Monocytes # (Auto) 1.3 Thou/mm3 (0.0-0.8); Monocytes % (Auto) 11 % (0-12); Neutrophils # (Auto) 6.4 Thou/mm3 (1.8-7.7); Neutrophils % (Auto) 52 % (37-80); Nucleated Red Blood Cell % 0 /100 WBC (0); Platelet Count 477 Thou/mm3 (140-440); RDW Standard Deviation 46.5 fL (36.4-46.3); Red Blood Count 3.75 Miln/mm3 (4.00-5.20); White Blood Count 12.3 Thou/mm3 (3.6-11.0)
[2024-03-19 14:51] LABS: Alanine Aminotransferase 155 U/L (10-49); Albumin, Serum 4.3 gm/dL (3.4-4.8); Albumin/Globulin Ratio 0.8 (1.2-2.2); Alkaline Phosphatase 706 U/L (46-116); Anion Gap 10 (7-16); Aspartate Amino Transferase 198 U/L (0-34); BUN/Creatinine Ratio 23 Ratio (12-20); Bilirubin,Total 0.4 mg/dL (0.3-1.2); Blood Urea Nitrogen 28 mg/dL (9-23); Calcium 9.2 mg/dL (8.3-10.6); Calcium (Corrected) 9.2 mg/dL (8.5-10.1); Carbon Dioxide 25.5 mMol/L (20.0-31.0); Chloride 97 mMol/L (98-107); Creatinine (Component) 1.2 mg/dL (0.6-1.3); Globulin 5.2 gm/dL (2.3-3.5); Glucose 101 mg/dL (74-106); Osmolality,Calculated 270 (275-295); Sodium 132 mMol/L (136-145); Total Protein 9.5 gm/dL (5.7-8.2); eGFR 49 See Note
[2024-03-19 14:56] LABS: Carcinoembryonic Antigen 6.3 ng/mL (0.0-5.0)
[2024-03-27 08:07] LABS: Basophils # (Auto) 0.1 Thou/mm3 (0.0-0.2); Basophils % (Auto) 1 % (0-2.5); Eosinophils # (Auto) 0.2 Thou/mm3 (0.0-0.5); Eosinophils % (Auto) 2 % (0-10); Hemoglobin 9.7 g/dL (12.0-16.0); Immature Granulocytes % (Auto) 0 % (0-0); Immature Granulocytes Auto 0.05 Thou/mm3 (0.00-0.00); Lymphocytes # (Auto) 2.6 Thou/mm3 (1.0-4.8); Lymphocytes % (Auto) 22 % (10-50); Mean Corpuscular HGB Conc 32.3 g/dl (31.0-37.0); Mean Corpuscular Volume 80 fL (80-100); Monocytes % (Auto) 8 % (0-12); Neutrophils # (Auto) 7.7 Thou/mm3 (1.8-7.7); Neutrophils % (Auto) 66 % (37-80); Nucleated Red Blood Cell % 0 /100 WBC (0); Platelet Count 418 Thou/mm3 (140-440); RDW Standard Deviation 46.5 fL (36.4-46.3); Red Blood Count 3.73 Miln/mm3 (4.00-5.20); White Blood Count 11.6 Thou/mm3 (3.6-11.0)
[2024-03-27 08:28] LABS: Alanine Aminotransferase 178 U/L (10-49); Albumin, Serum 4.1 gm/dL (3.4-4.8); Albumin/Globulin Ratio 0.8 (1.2-2.2); Alkaline Phosphatase 588 U/L (46-116); Anion Gap 9 (7-16); Aspartate Amino Transferase 232 U/L (0-34); BUN/Creatinine Ratio 24 Ratio (12-20); Bilirubin,Total 0.3 mg/dL (0.3-1.2); Blood Urea Nitrogen 34 mg/dL (9-23); Calcium 9.4 mg/dL (8.3-10.6); Calcium (Corrected) 9.4 mg/dL (8.5-10.1); Carbon Dioxide 25.3 mMol/L (20.0-31.0); Chloride 97 mMol/L (98-107); Creatinine (Component) 1.4 mg/dL (0.6-1.3); Globulin 5.1 gm/dL (2.3-3.5); Glucose 206 mg/dL (74-106); Osmolality,Calculated 276 (275-295); Potassium 4.1 mMol/L (3.4-5.1); Sodium 131 mMol/L (136-145); Total Protein 9.2 gm/dL (5.7-8.2); eGFR 41 See Note
[2024-03-27 08:35] LABS: Carcinoembryonic Antigen 11.8 ng/mL (0.0-5.0)
[2024-03-27 14:55] LABS: Alanine Aminotransferase 171 U/L (10-49); Albumin, Serum 4.2 gm/dL (3.4-4.8); Albumin/Globulin Ratio 0.8 (1.2-2.2); Alkaline Phosphatase 581 U/L (46-116); Anion Gap 8 (7-16); Aspartate Amino Transferase 215 U/L (0-34); BUN/Creatinine Ratio 25 Ratio (12-20); Bilirubin,Total 0.3 mg/dL (0.3-1.2); Blood Urea Nitrogen 35 mg/dL (9-23); Calcium 9.2 mg/dL (8.3-10.6); Calcium (Corrected) 9.2 mg/dL (8.5-10.1); Carbon Dioxide 25.7 mMol/L (20.0-31.0); Chloride 99 mMol/L (98-107); Creatinine (Component) 1.4 mg/dL (0.6-1.3); Globulin 5.1 gm/dL (2.3-3.5); Glucose 154 mg/dL (74-106); Osmolality,Calculated 277 (275-295); Sodium 133 mMol/L (136-145); Total Protein 9.3 gm/dL (5.7-8.2); eGFR 41 See Note
[2024-03-27 15:39] LABS: Hepatitis A Antibody IgM Non Reactive (Non React); Hepatitis B Core Antibody IgM Non Reactive (Non React); Hepatitis B Surface Antigen Non Reactive (Non React); Hepatitis C Antibody Non Reactive (Non React)
--- NOTE | 2024-04-03 11:41 | CTCFLWUP_ITS ---
Patient: SHELLEY CAMPOS : 1955 Page 2 of 2 FOLLOW UP NOTE DATE OF SERVICE: 04/03/2024 NAME: SHELLEY CAMPOS ACCOUNT: [id number] : 1955 AGE: 68 INTERVAL HISTORY: Is complaining of pain in her back. Pain is sharp and radiating to her back. Patient's last chemoth erapy was on February 15, 2024. She also have cough shortness of breath and pain with breathing. She denies any sick contacts ONCOLOGY HISTORY: DIAGNOSIS: Malignant neoplasm of ascending colon [ICD10] C18.2 DATE OF DIAGNOSIS: 11/20/2023 STAGE/TNM: Stage 4 colon and localized gall bladder TREATMENT HISTORY: Care?Plan Start?Date Cycle Day Intent mFOLFOX-6?-?5FU?400?+?2400?CIV,?LVR?400,OXALIplat?85 02/15/2024 1 14 Curative?(adjuvant) HISTORY OF PRESENT ILLNESS: Shelley Campos is a 68-year-old SPA speaking Other female with with following oncology history. 09/16/2015: Ms. Campos had a left hemicolectomy Pathology 11/20/2023-tumor site cecum well-differentiated G1 adenocarcinoma 2.5 x 1 cm proximal distal radial uninvolved by tumor No regional lymph node metastasis number of lymph nodes examined 11 number of lymph nodes involved 6 tumor deposits present in 2 T3 tumor invades through the muscularis propria into pericolorectal tissu e pN2a and the tumor except extensive necrosis No loss of expression ANNAMARIA-no MMR Gallbladder showed simple cholecystectomy adenocarcinoma at the intestinal-type well-differentiated t umor present deep to the muscular layer but does not demonstrate reaching the serosa liver parenchyma margin cannot be assessed 1 lymph nodes submitted negative for cancer T2 N0 PET CT scan 01/17/2024 shows 12 mm hypermetabolic focus anterior abdominal wall recommend high-resolut ion CT abdomen pelvis post IV contrast also noted hypermetabolic carotid triangle lymphadenopathy 11 mm and 8 mm in the left and right carotid triangle respectively. No night simona hypermetabolism in t he chest no lung nodules. 11/18/2023: Hemoglobin 8.4, MCV 72, WBC 15.3, ANC 9.2, platelets 474,000. 11/17/2023: Patient had colonoscopy done and found to have a cecal mass. Biopsy showed well-differenti ated invasive adenocarcinoma. 11/18/2023: CT scan of the chest abdomen and pelvis with IV contrast 11/19/2023: CEA 61.9 11/20/2023: Ms. Campos had exploratory laparotomy, right colectomy and cholecystectomy. Ms. Deniz cazares was found to have near obstructing tumor of the cecum, distended gallbladder with multiple gallston es and chronic cholecystitis. Anterior surface of the liver was smooth without any nodules or lesion s. No evidence of omental or peritoneal nodules. PAST MEDICAL HISTORY: HYPERTENSION DIABETES MELLITUS ANEMIA COLON CA 11/2023 PAST SURGICAL HISTORY: PORT A CATH INSERTION 12/22/23 C SECTION X1 IN 1975 FLOWERY [place], [place] EXPLORATORY LAPARTOMOMY 11/20/23 ANAYELI VIEW CARPAL TUNNEL SX BILATERAL RIGHT SHOULDER SX 1997 LEFT KNEE SURGERY OTHER MEDICAL HISTORY/CONDITIONS: HYPERTENSION DIABETES MELLITUS ANEMIA COLON CA 11/2023 PORT A CATH INSERTION 12/22/23 C SECTION X1 IN 1975 FLOWERY [place], [place] EXPLORATORY LAPARTOMOMY 11/20/23 ANAYELI VIEW CARPAL TUNNEL SX BILATERAL RIGHT SHOULDER SX 1997 LEFT KNEE SURGERY FAMILY HISTORY: Father:?FATHER?PROSTATE?CANCER Mother:?DENIES Sibling:?DENIES Children:?DENIES Cancer?History:?COLON?CA SOCIAL HISTORY: 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 Januvia - 100 mg 1 tab Daily 2. Jardiance - 25 mg 1 tab Daily 3. losartan-hydrochlorothiazide - 50-12.5 mg 1 tab Daily 4. Lovenox - 60 mg/0.6 mL Daily 5. Vitamin C - 500 mg 1 tab Daily 6. zinc - 30 mg 1 tab Daily Medications Last Reconciled by Gabi Lloyd MA on 04/03/2024 ALLERGIES: ibuprofen REVIEW OF SYSTEMS: A complete 14-point review of systems was performed and is negative except as noted in interval histo ry. PHYSICAL EXAMINATION: VITAL SIGNS: Temperature?98, B/P?114/77, Oxygen?Saturation?97% Weight?138?lbs (Change?since?03/27/24: ?-1.2?lbs) PAIN: 7 - Between severe and very severe pain ECOG Performance Status: 3 - Symptomatic; limited self-care; spends >50% of time in bed, not bedridde n Alert oriented x 4 CHEST: Clear to auscultation. No wheezes or rales audible. CARDIAC: Rhythm regular, no murmurs or gallops present. ABDOMEN: Soft. Well-healed mid abdominal incision without any signs of infection No hepatomegaly. No splenomegaly. EXTREMITIES: No pedal edema or cyanosis. LABORATORY DATA: I have personally reviewed and interpreted each of the patient?s relevant lab tests, abnormal finding s are below: Date 03/27/24 ??GLUCOSE,RANDOM?(mg/dL) 154?H ??BLOOD?UREA?NITROGEN?(mg/dL) 35?H ??CREATININE?(mg/dL) 1.40?H ??SODIUM?(mmol/L) 133?L ??POTASSIUM?(mmol/L) 4.0 ??CHLORIDE?(mmol/L) 99 ??CrCl?(CandG)?(ml/min) 37.80 ??AST/SGOT?(Unit/L) 215?H ??ALT/SGPT?(Unit/L) 171?H ??ALKALINE?PHOSPHATASE?(Unit/L) 581?H ??BILIRUBIN,?TOTAL?(mg/dL) 0.3 ??PROTEIN?TOTAL?(gm/dl) 9.3?H ??ALBUMIN,?SERUM?(gm/dl) 4.2 ??GLOBULIN?(gm/dl) 5.1?H ??ALBUMIN/GLOBULIN?RATIO 0.8?L ??CALCIUM,?SERUM?(mg/dL) 9.2 ??CALCIUM?SERUM?(CORRECTED)?(mg/dL) 9.2 ASSESSMENT/PLAN: Synchronously detected MMR proficient, stage IIIb colonic adenocarcinoma as well as stage II gallblad jennifer adenocarcinoma (11/20/2023) Left colectomy (09/16/2015). pTis N0 M0 well-differentiated adenocarcinoma, intramucosal in a polyp PET CT scan/CT chest abdomen pelvis with IV contrast do not reveal any residual disease. Last scan d one on 03/14/2024 Genetic testing for Blackburn syndrome negative Type 2 diabetes currently on insulin. Patient's have transaminitis which is worsening Patient's last chemotherapy was on 02/15/2024 Patient has been given IV fluids and was also treated for pneumonia Her LFTs are now downtrending Hepatitis panel is negative I will send her to emergency room for evaluation by gastroenterology ORDERS: Patient wheeled to the emergency room RETURN TO CLINIC: Once discharged please schedule return visit in 2 to 3 weeks BILLING AND COMPLIANCE: I reviewed external records from providers outside my specialty as summarized above. I spent a total of 50 minutes on this patient?s care on the day of their visit excluding time spent related to any bi lled procedures. This time includes time spent with the patient as well as time spent documenting in the medical record, reviewing patients records and tests, obtaining history, placing orders, communi cating with other healthcare professionals, counseling the patient, family or caregiver, and/or care coordination for the diagnoses above. Electronically Signed by: Janes Irene MD T: 11:38 AM CC: PCP: Mayur Lewis Referring: Mayur Lewis This document was completed utilizing speech recognition software. Grammatical errors, random word in sertions, pronoun errors, and incomplete sentences are an occasional consequence of this system due t o software limitations, ambient noise, and hardware issues. Any formal questions or concerns about th e content, text or information contained within the body of this dictation should be directly address ed to the provider for clarification.
== END 2024-04-10 23:59 | disposition home or self-care (01) ==
LOC: SCTC 14:20
PROVIDERS: PCP Family Medicine; Referring Provider Family Medicine; Visit Provider Internal Medicine Hematology & Oncology
DX: C18.0 Malignant neoplasm of cecum (principal); C23 Malignant neoplasm of gallbladder; Z90.49 Acquired absence of other specified parts of digestive tract; E11.9 Type 2 diabetes mellitus without complications; Z79.4 Long term (current) use of insulin
CPT/HCPCS: 36591; 80053; 80074; 82378; 85025; 96360; 96361; 96365; 96366; 96372; 96374; 99212; A4216; J1642; J2997; J7030; Q3014; G0463

== ENCOUNTER → 2024-04-16 | Outpatient (CLI) | payer MEDICARE, MEDICAID, SELFPAY ==
[2024-04-16 08:48] LABS: Misc Send Out* See Sep Rpt
[2024-04-16 09:22] LABS: Basophils # (Auto) 0.1 Thou/mm3 (0.0-0.2); Basophils % (Auto) 1 % (0-2.5); Eosinophils # (Auto) 0.4 Thou/mm3 (0.0-0.5); Eosinophils % (Auto) 4 % (0-10); Hematocrit 32.9 % (36.0-46.0); Hemoglobin 10.5 g/dL (12.0-16.0); Immature Granulocytes % (Auto) 0 % (0-0); Immature Granulocytes Auto 0.03 Thou/mm3 (0.00-0.00); Lymphocytes # (Auto) 3.3 Thou/mm3 (1.0-4.8); Lymphocytes % (Auto) 32 % (10-50); Mean Corpuscular HGB Conc 31.9 g/dl (31.0-37.0); Mean Corpuscular Hemoglobin 25.9 pg (25.0-35.0); Mean Corpuscular Volume 81 fL (80-100); Monocytes # (Auto) 0.8 Thou/mm3 (0.0-0.8); Monocytes % (Auto) 8 % (0-12); Neutrophils # (Auto) 5.6 Thou/mm3 (1.8-7.7); Neutrophils % (Auto) 55 % (37-80); Nucleated Red Blood Cell % 0 /100 WBC (0); Platelet Count 389 Thou/mm3 (140-440); RDW Standard Deviation 48.2 fL (36.4-46.3); Red Blood Count 4.05 Miln/mm3 (4.00-5.20); White Blood Count 10.3 Thou/mm3 (3.6-11.0)
[2024-04-16 09:29] LABS: Alanine Aminotransferase 75 U/L (10-49); Albumin, Serum 3.9 gm/dL (3.4-4.8); Albumin/Globulin Ratio 0.7 (1.2-2.2); Alkaline Phosphatase 383 U/L (46-116); Anion Gap 8 (7-16); Aspartate Amino Transferase 86 U/L (0-34); BUN/Creatinine Ratio 16 Ratio (12-20); Bilirubin,Total 0.4 mg/dL (0.3-1.2); Blood Urea Nitrogen 16 mg/dL (9-23); Calcium 9.4 mg/dL (8.3-10.6); Calcium (Corrected) 9.5 mg/dL (8.5-10.1); Carbon Dioxide 26.4 mMol/L (20.0-31.0); Chloride 103 mMol/L (98-107); Globulin 5.4 gm/dL (2.3-3.5); Glucose 79 mg/dL (74-106); Osmolality,Calculated 274 (275-295); Potassium 4.2 mMol/L (3.4-5.1); Sodium 137 mMol/L (136-145); Total Protein 9.3 gm/dL (5.7-8.2); eGFR > 60 See Note
== END | disposition home or self-care (01) ==
LOC: SCTO 08:19
PROVIDERS: PCP Family Medicine; Referring Provider Internal Medicine Hematology & Oncology; Visit Provider Internal Medicine Hematology & Oncology
DX: C18.2 Malignant neoplasm of ascending colon (principal); C23 Malignant neoplasm of gallbladder
CPT/HCPCS: 36415; 80053; 85025

== ENCOUNTER → 2024-04-24 | Outpatient (CLI) | payer MEDICARE, MEDICAID, SELFPAY ==
--- NOTE | 2024-04-24 09:00 | XR_ITS ---
Examination: MRI abdomen with intravenous contrast. MRI abdomen without intravenous contrast. Date and time of exam: April 24, 2024 0938 hours Comparison April 03, 2024 INDICATIONS: Diagnosis malignant neoplasm ascending colon, malignant neoplasm gallbladder, restaging Technique: Multiple axial, sagittal and coronal sections of the abdomen obtained. Transverse images, TR 6020, TE 107. T1 weighted transverse images, TR 582, TE 9.5. T2-weighted sagittal images, TR 4000, TE 105. T2-weighted sagittal images, TR 4000, TE 5. Coronal images, TR 4210, TE 107. Axial and coronal images are obtained post 20 cc intravenous injection, gadolinium. Findings: No focal liver lesions on the precontrast images Spleen not enlarged Absent gallbladder Normal common hepatic common bile duct Pancreatic duct is not dilated No pancreatic mass No ascites Left renal cyst, 21 mm Aorta is not enlarged No hydronephrosis Postcontrast images demonstrate no abnormal enhancing liver lesions No abdominal lymphadenopathy Small umbilical hernia IMPRESSION: No focal liver lesions No abdominal lymphadenopathy Normal common hepatic common bile duct Small benign left renal cyst No ascites
[2024-04-24] MEDS: DiphenhydrAMINE INJ 50 MG/ML VIAL 25 MG IVP (10:34)
[2024-04-24 10:40] VITALS: BP 186/100; PULSE 76; RESP 16; TEMP 36.4; O2SAT 95
--- NOTE | 2024-04-24 10:41 | PC.NURSE ---
patient came into [facility] after MRI with contrast procedure, patient had an allergic reaction (left eye lid swelling and left side of back there are hives) MD made aware and MD wanted 25mg of benadryl IVP and to monitor for one hour
== END | disposition home or self-care (01) ==
PROVIDERS: PCP Family Medicine; Referring Provider Internal Medicine Hematology & Oncology; Visit Provider Internal Medicine Hematology & Oncology
DX: N28.1 Cyst of kidney, acquired (principal); C18.2 Malignant neoplasm of ascending colon; C23 Malignant neoplasm of gallbladder
CPT/HCPCS: 74183; A9579; J1200

== ENCOUNTER 2024-05-11 09:22 | Outpatient (RCR) | payer MEDICARE, MEDICAID, SELFPAY ==
--- NOTE | 2024-04-22 23:37 | CTCFLWUP_ITS ---
Patient: SHELLEY CAMPOS : 1955 Page 5 of 7 FOLLOW UP NOTE DATE OF SERVICE: 04/19/2024 NAME: SHELLEY CAMPOS ACCOUNT: [id number] : 1955 AGE: 68 INTERVAL HISTORY: Patient is feeling better now. At last visit her diabetes medications were changed after he she met with her primary care. She is now only taking Lantus ONCOLOGY HISTORY: DIAGNOSIS: Malignant neoplasm of ascending colon [ICD10] C18.2 DATE OF DIAGNOSIS: 11/20/2023 STAGE/TNM: Stage 4 colon and localized gall bladder TREATMENT HISTORY: Care?Plan Start?Date Cycle Day Intent mFOLFOX-6?-?5FU?400?+?2400?CIV,?LVR?400,OXALIplat?85 02/15/2024 1 14 Curative?(adjuvant) HISTORY OF PRESENT ILLNESS: Shelley Campos is a 68-year-old SPA speaking Other female with with following oncology history. 09/16/2015: Ms. Campos had a left hemicolectomy Pathology 11/20/2023-tumor site cecum well-differentiated G1 adenocarcinoma 2.5 x 1 cm proximal distal radial uninvolved by tumor No regional lymph node metastasis number of lymph nodes examined 11 number of lymph nodes involved 6 tumor deposits present in 2 T3 tumor invades through the muscularis propria into pericolorectal tissu e pN2a and the tumor except extensive necrosis No loss of expression ANNAMARIA-no MMR Gallbladder showed simple cholecystectomy adenocarcinoma at the intestinal-type well-differentiated t umor present deep to the muscular layer but does not demonstrate reaching the serosa liver parenchyma margin cannot be assessed 1 lymph nodes submitted negative for cancer T2 N0 PET CT scan 01/17/2024 shows 12 mm hypermetabolic focus anterior abdominal wall recommend high-resolut ion CT abdomen pelvis post IV contrast also noted hypermetabolic carotid triangle lymphadenopathy 11 mm and 8 mm in the left and right carotid triangle respectively. No night simona hypermetabolism in t he chest no lung nodules. 11/18/2023: Hemoglobin 8.4, MCV 72, WBC 15.3, ANC 9.2, platelets 474,000. 11/17/2023: Patient had colonoscopy done and found to have a cecal mass. Biopsy showed well-differenti ated invasive adenocarcinoma. 11/18/2023: CT scan of the chest abdomen and pelvis with IV contrast 11/19/2023: CEA 61.9 11/20/2023: Ms. Campos had exploratory laparotomy, right colectomy and cholecystectomy. Ms. Deniz cazares was found to have near obstructing tumor of the cecum, distended gallbladder with multiple gallston es and chronic cholecystitis. Anterior surface of the liver was smooth without any nodules or lesion s. No evidence of omental or peritoneal nodules. PAST MEDICAL HISTORY: HYPERTENSION DIABETES MELLITUS ANEMIA COLON CA 11/2023 PAST SURGICAL HISTORY: PORT A CATH INSERTION 12/22/23 C SECTION X1 IN 1975 [place], [place] EXPLORATORY LAPARTOMOMY 11/20/23 ANAYELI VIEW CARPAL TUNNEL SX BILATERAL RIGHT SHOULDER SX 1997 LEFT KNEE SURGERY OTHER MEDICAL HISTORY/CONDITIONS: HYPERTENSION DIABETES MELLITUS ANEMIA COLON CA 11/2023 PORT A CATH INSERTION 12/22/23 C SECTION X1 IN 1975 [place], [place] EXPLORATORY LAPARTOMOMY 11/20/23 ANAYELI V[place] CARPAL TUNNEL SX BILATERAL RIGHT SHOULDER SX 1997 LEFT KNEE SURGERY FAMILY HISTORY: Father:?FATHER?PROSTATE?CANCER Mother:?DENIES Sibling:?DENIES Children:?DENIES Cancer?History:?COLON?[place] SOCIAL HISTORY: 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 ferrous sulfate - 325 mg (65 mg iron) 1 tab Daily 2. Levothroid - 25 mcg 1 tab In the morning 3. losartan - 50 mg 1 tab Daily 4. Lovenox - 60 mg/0.6 mL Daily 5. multivitamin - Capsule Daily 6. Vitamin D2 - 1,250 mcg (50,000 unit) 1 Capsule Weekly Medications Last Reconciled by Gabi Lloyd MA on 04/19/2024 ALLERGIES: ibuprofen REVIEW OF SYSTEMS: A complete 14-point review of systems was performed and is negative except as noted in interval histo ry. PHYSICAL EXAMINATION: VITAL SIGNS: Temperature?98, B/P?138/89, Oxygen?Saturation?98% Weight?141?lbs (Change?since?04/09/24: ?2?lbs) PAIN: 0 - No pain Alert oriented x 4 CHEST: Clear to auscultation. No wheezes or rales audible. CARDIAC: Rhythm regular, no murmurs or gallops present. ABDOMEN: Soft. Well-healed mid abdominal incision without any signs of infection No hepatomegaly. No splenomegaly. EXTREMITIES: No pedal edema or cyanosis. LABORATORY DATA: I have personally reviewed and interpreted each of the patient?s relevant lab tests, abnormal finding s are below: Date 04/16/24 ??GLUCOSE,RANDOM?(mg/dL) 79 ??BLOOD?UREA?NITROGEN?(mg/dL) 16 ??CREATININE?(mg/dL) 1.00 ??SODIUM?(mmol/L) 137 ??POTASSIUM?(mmol/L) 4.2 ??CHLORIDE?(mmol/L) 103 ??CrCl?(CandG)?(ml/min) 52.85 ??AST/SGOT?(Unit/L) 86?H ??ALT/SGPT?(Unit/L) 75?H ??ALKALINE?PHOSPHATASE?(Unit/L) 383?H ??BILIRUBIN,?TOTAL?(mg/dL) 0.4 ??PROTEIN?TOTAL?(gm/dl) 9.3?H ??ALBUMIN,?SERUM?(gm/dl) 3.9 ??GLOBULIN?(gm/dl) 5.4?H ??ALBUMIN/GLOBULIN?RATIO 0.7?L ??CALCIUM,?SERUM?(mg/dL) 9.4 ??CALCIUM?SERUM?(CORRECTED)?(mg/dL) 9.5 ASSESSMENT/PLAN: Synchronously detected MMR proficient, stage IIIb colonic adenocarcinoma as well as stage II gallblad jennifer adenocarcinoma (11/20/2023) Left colectomy (09/16/2015). pTis N0 M0 well-differentiated adenocarcinoma, intramucosal in a polyp PET CT scan/CT chest abdomen pelvis with IV contrast do not reveal any residual disease. Last scan d one on 03/14/2024 Genetic testing for Blackburn syndrome negative Type 2 diabetes currently on insulin. Patient's transaminitis has been improving since stopping diabetic drugs patient's last chemotherapy was on 02/15/2024 Patient has been given IV fluids and was also treated for pneumonia Her LFTs are now downtrending Hepatitis panel is negative MRCP is negative Will resume chemotherapy CBC CMP and chemotherapy if patient have LFTs normalized RETURN TO CLINIC: 3 weeks BILLING AND COMPLIANCE: I reviewed external records from providers outside my specialty as summarized above. I spent a total of 50 minutes on this patient?s care on the day of their visit excluding time spent related to any bi lled procedures. This time includes time spent with the patient as well as time spent documenting in the medical record, reviewing patients records and tests, obtaining history, placing orders, communi cating with other healthcare professionals, counseling the patient, family or caregiver, and/or care coordination for the diagnoses above. Electronically Signed by: Janes Irene MD T: 11:34 PM CC: PCP: Rd Hickey Referring: Rd Hickey This document was completed utilizing speech recognition software. Grammatical errors, random word in sertions, pronoun errors, and incomplete sentences are an occasional consequence of this system due t o software limitations, ambient noise, and hardware issues. Any formal questions or concerns about th e content, text or information contained within the body of this dictation should be directly address ed to the provider for clarification.
[2024-04-24 08:20] LABS: Basophils # (Auto) 0.1 Thou/mm3 (0.0-0.2); Basophils % (Auto) 1 % (0-2.5); Eosinophils # (Auto) 0.3 Thou/mm3 (0.0-0.5); Eosinophils % (Auto) 3 % (0-10); Hemoglobin 9.7 g/dL (12.0-16.0); Immature Granulocytes % (Auto) 0 % (0-0); Immature Granulocytes Auto 0.01 Thou/mm3 (0.00-0.00); Lymphocytes # (Auto) 3.4 Thou/mm3 (1.0-4.8); Lymphocytes % (Auto) 35 % (10-50); Mean Corpuscular HGB Conc 32.3 g/dl (31.0-37.0); Mean Corpuscular Hemoglobin 26.5 pg (25.0-35.0); Mean Corpuscular Volume 82 fL (80-100); Monocytes # (Auto) 0.9 Thou/mm3 (0.0-0.8); Monocytes % (Auto) 9 % (0-12); Neutrophils # (Auto) 5.1 Thou/mm3 (1.8-7.7); Neutrophils % (Auto) 53 % (37-80); Nucleated Red Blood Cell % 0 /100 WBC (0); Platelet Count 354 Thou/mm3 (140-440); RDW Standard Deviation 50.5 fL (36.4-46.3); Red Blood Count 3.66 Miln/mm3 (4.00-5.20); White Blood Count 9.7 Thou/mm3 (3.6-11.0)
[2024-04-24 08:53] LABS: Alanine Aminotransferase 41 U/L (10-49); Albumin, Serum 3.7 gm/dL (3.4-4.8); Albumin/Globulin Ratio 0.8 (1.2-2.2); Alkaline Phosphatase 273 U/L (46-116); Anion Gap 8 (7-16); Aspartate Amino Transferase 45 U/L (0-34); BUN/Creatinine Ratio 15 Ratio (12-20); Bilirubin,Total 0.4 mg/dL (0.3-1.2); Blood Urea Nitrogen 17 mg/dL (9-23); Calcium (Corrected) 9.2 mg/dL (8.5-10.1); Carbon Dioxide 24.4 mMol/L (20.0-31.0); Chloride 102 mMol/L (98-107); Creatinine (Component) 1.1 mg/dL (0.6-1.3); Globulin 4.7 gm/dL (2.3-3.5); Glucose 261 mg/dL (74-106); Osmolality,Calculated 278 (275-295); Potassium 3.9 mMol/L (3.4-5.1); Sodium 134 mMol/L (136-145); Total Protein 8.4 gm/dL (5.7-8.2); eGFR 54 See Note
[2024-04-24 09:40] LABS: Carcinoembryonic Antigen 180.1 ng/mL (0.0-5.0)
[2024-04-24 11:16] VITALS: BP 164/92; PULSE 66; RESP 16; O2SAT 96
--- NOTE | 2024-04-24 12:29 | PC.NURSE ---
Hives have disappeared and patient no longer feels itchy. IV removed and patient discharged.
[2024-04-27 09:53] LABS: Basophils % (Auto) 0 % (0-2.5); Eosinophils % (Auto) 0 % (0-10); Hematocrit 29.9 % (36.0-46.0); Hemoglobin 9.8 g/dL (12.0-16.0); Immature Granulocytes % (Auto) 1 % (0-0); Lymphocytes # (Auto) 2.3 Thou/mm3 (1.0-4.8); Lymphocytes % (Auto) 11 % (10-50); Mean Corpuscular HGB Conc 32.8 g/dl (31.0-37.0); Mean Corpuscular Hemoglobin 26.8 pg (25.0-35.0); Mean Corpuscular Volume 82 fL (80-100); Monocytes # (Auto) 0.9 Thou/mm3 (0.0-0.8); Monocytes % (Auto) 4 % (0-12); Neutrophils # (Auto) 17.9 Thou/mm3 (1.8-7.7); Neutrophils % (Auto) 84 % (37-80); Nucleated Red Blood Cell % 0 /100 WBC (0); Platelet Count 360 Thou/mm3 (140-440); RDW Standard Deviation 49.1 fL (36.4-46.3); Red Blood Count 3.66 Miln/mm3 (4.00-5.20); White Blood Count 21.2 Thou/mm3 (3.6-11.0)
[2024-04-27 10:08] LABS: Alanine Aminotransferase 32 U/L (10-49); Albumin/Globulin Ratio 0.9 (1.2-2.2); Alkaline Phosphatase 240 U/L (46-116); Anion Gap 9 (7-16); Aspartate Amino Transferase 37 U/L (0-34); BUN/Creatinine Ratio 31 Ratio (12-20); Bilirubin,Total 0.4 mg/dL (0.3-1.2); Blood Urea Nitrogen 31 mg/dL (9-23); Carbon Dioxide 24.3 mMol/L (20.0-31.0); Chloride 98 mMol/L (98-107); Globulin 4.4 gm/dL (2.3-3.5); Glucose 310 mg/dL (74-106); Osmolality,Calculated 281 (275-295); Potassium 3.5 mMol/L (3.4-5.1); Sodium 131 mMol/L (136-145); Total Protein 8.4 gm/dL (5.7-8.2); eGFR > 60 See Note
[2024-05-07 12:11] LABS: Basophils % (Auto) 0 % (0-2.5); Eosinophils # (Auto) 0.2 Thou/mm3 (0.0-0.5); Eosinophils % (Auto) 2 % (0-10); Hematocrit 27.8 % (36.0-46.0); Immature Granulocytes % (Auto) 0 % (0-0); Immature Granulocytes Auto 0.01 Thou/mm3 (0.00-0.00); Lymphocytes # (Auto) 3.2 Thou/mm3 (1.0-4.8); Lymphocytes % (Auto) 40 % (10-50); Mean Corpuscular HGB Conc 32.4 g/dl (31.0-37.0); Mean Corpuscular Hemoglobin 26.4 pg (25.0-35.0); Mean Corpuscular Volume 82 fL (80-100); Monocytes # (Auto) 0.8 Thou/mm3 (0.0-0.8); Monocytes % (Auto) 10 % (0-12); Neutrophils # (Auto) 3.9 Thou/mm3 (1.8-7.7); Neutrophils % (Auto) 48 % (37-80); Nucleated Red Blood Cell % 0 /100 WBC (0); Platelet Count 323 Thou/mm3 (140-440); RDW Standard Deviation 48.9 fL (36.4-46.3); Red Blood Count 3.41 Miln/mm3 (4.00-5.20); White Blood Count 8.1 Thou/mm3 (3.6-11.0)
[2024-05-07 12:57] LABS: Alanine Aminotransferase 33 U/L (10-49); Albumin, Serum 3.6 gm/dL (3.4-4.8); Albumin/Globulin Ratio 1.1 (1.2-2.2); Alkaline Phosphatase 206 U/L (46-116); Anion Gap 7 (7-16); Aspartate Amino Transferase 38 U/L (0-34); BUN/Creatinine Ratio 13 Ratio (12-20); Bilirubin,Total 0.2 mg/dL (0.3-1.2); Blood Urea Nitrogen 13 mg/dL (9-23); Calcium 8.8 mg/dL (8.3-10.6); Calcium (Corrected) 9.1 mg/dL (8.5-10.1); Chloride 101 mMol/L (98-107); Globulin 3.3 gm/dL (2.3-3.5); Glucose 202 mg/dL (74-106); Osmolality,Calculated 272 (275-295); Potassium 3.7 mMol/L (3.4-5.1); Sodium 133 mMol/L (136-145); Total Protein 6.9 gm/dL (5.7-8.2); eGFR > 60 See Note
[2024-05-07 14:01] LABS: Carcinoembryonic Antigen 295.4 ng/mL (0.0-5.0)
--- NOTE | 2024-05-08 14:17 | CTCFLWUP_ITS ---
Patient: SHELLEY CAMPOS : 1955 Page 2 of 2 FOLLOW UP NOTE DATE OF SERVICE: 05/08/2024 NAME: SHELLEY CAMPOS ACCOUNT: [id number] : 1955 AGE: 68 INTERVAL HISTORY: Patient is feeling better now she has done well with the last treatment. She has not lost any more weight. Her appetite is good ONCOLOGY HISTORY: DIAGNOSIS: Malignant neoplasm of ascending colon [ICD10] C18.2 DATE OF DIAGNOSIS: 11/20/2023 STAGE/TNM: Stage 4 colon and localized gall bladder TREATMENT HISTORY: Care?Plan Start?Date Cycle Day Intent mFOLFOX-6?-?5FU?400?+?2400?CIV,?LVR?400,OXALIplat?85 02/15/2024 1 14 Curative?(adjuvant) HISTORY OF PRESENT ILLNESS: Shelley Campos is a 68-year-old SPA speaking Other female with with following oncology history. 09/16/2015: Ms. Campos had a left hemicolectomy Pathology 11/20/2023-tumor site cecum well-differentiated G1 adenocarcinoma 2.5 x 1 cm proximal distal radial uninvolved by tumor No regional lymph node metastasis number of lymph nodes examined 11 number of lymph nodes involved 6 tumor deposits present in 2 T3 tumor invades through the muscularis propria into pericolorectal tissue pN2a and the tumor except extensive necrosis No loss of expression ANNAMARIA-no MMR Gallbladder showed simple cholecystectomy adenocarcinoma at the intestinal-type well-differentiated tumor present deep to the muscular layer but does not demonstrate reaching the serosa liver parenchyma margin cannot be assessed 1 lymph nodes submitted negative for cancer T2 N0 PET CT scan 01/17/2024 shows 12 mm hypermetabolic focus anterior abdominal wall recommend high-resolution CT abdomen pelvis post IV contrast also noted hypermetabolic carotid triangle lymphadenopathy 11 mm and 8 mm in the left and right carotid triangle respectively. No night simona hypermetabolism in the chest no lung nodules. 11/18/2023: Hemoglobin 8.4, MCV 72, WBC 15.3, ANC 9.2, platelets 474,000. 11/17/2023: Patient had colonoscopy done and found to have a cecal mass. Biopsy showed well-differentiated invasive adenocarcinoma. 11/18/2023: CT scan of the chest abdomen and pelvis with IV contrast 11/19/2023: CEA 61.9 11/20/2023: Ms. Campos had exploratory laparotomy, right colectomy and cholecystectomy. Ms. Campos was found to have near obstructing tumor of the cecum, distended gallbladder with multiple gallstones and chronic cholecystitis. Anterior surface of the liver was smooth without any nodules or lesions. No evidence of omental or peritoneal nodules. PAST MEDICAL HISTORY: HYPERTENSION DIABETES MELLITUS ANEMIA COLON CA 11/2023 PAST SURGICAL HISTORY: PORT A CATH INSERTION 12/22/23 C SECTION X1 IN 1975 [place], [place] EXPLOR[place]ORY LAPARTOMOMY 11/20/23 ANAYELI VIEW CARPAL TUNNEL SX BILATERAL RIGHT SHOULDER SX 1997 LEFT KNEE SURGERY OTHER MEDICAL HISTORY/CONDITIONS: HYPERTENSION DIABETES MELLITUS ANEMIA COLON CA 11/2023 PORT A CATH INSERTION 12/22/23 C SECTION X1 IN 1975 [place], [place] EXPLOR[place]ORY LAPARTOMOMY 11/20/23 ANAYELI VIEW CARPAL TUNNEL SX BILATERAL RIGHT SHOULDER SX 1997 LEFT KNEE SURGERY FAMILY HISTORY: Father:?FATHER?PROSTATE?CANCER Mother:?DENIES Sibling:?DENIES Children:?DENIES Cancer?History:?COLON?[place] SOCIAL HISTORY: 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 ON [address] MEDICATIONS: 1. ferrous sulfate - 325 mg (65 mg iron) 1 tab Daily 2. Levothroid - 25 mcg 1 tab In the morning 3. losartan - 50 mg 1 tab Daily 4. Lovenox - 60 mg/0.6 mL Daily 5. multivitamin - Capsule Daily 6. Vitamin D2 - 1,250 mcg (50,000 unit) 1 Capsule Weekly Medications Last Reconciled by Mara Guevara MA on 05/08/2024 ALLERGIES: ibuprofen REVIEW OF SYSTEMS: A complete 14-point review of systems was performed and is negative except as noted in interval history. PHYSICAL EXAMINATION: VITAL SIGNS: PAIN: 0 - No pain ECOG Performance Status: 0 - Asymptomatic and fully active Alert oriented x 4 CHEST: Clear to auscultation. No wheezes or rales audible. CARDIAC: Rhythm regular, no murmurs or gallops present. ABDOMEN: Soft. Well-healed mid abdominal incision without any signs of infection No hepatomegaly. No splenomegaly. EXTREMITIES: No pedal edema or cyanosis. LABORATORY DATA: I have personally reviewed and interpreted each of the patient?s relevant lab tests, abnormal findings are below: Date 05/07/24 ??GLUCOSE,RANDOM?(mg/dL) 202?H ??BLOOD?UREA?NITROGEN?(mg/dL) 13 ??CREATININE?(mg/dL) 1.00 ??SODIUM?(mmol/L) 133?L ??POTASSIUM?(mmol/L) 3.7 ??CHLORIDE?(mmol/L) 101 ??CrCl?(CandG)?(ml/min) 53.84 ??AST/SGOT?(Unit/L) 38?H ??ALT/SGPT?(Unit/L) 33 ??ALKALINE?PHOSPHATASE?(Unit/L) 206?H ??BILIRUBIN,?TOTAL?(mg/dL) 0.2?L ??PROTEIN?TOTAL?(gm/dl) 6.9 ??ALBUMIN,?SERUM?(gm/dl) 3.6 ??GLOBULIN?(gm/dl) 3.3 ??ALBUMIN/GLOBULIN?RATIO 1.1?L ??CALCIUM,?SERUM?(mg/dL) 8.8 ??CALCIUM?SERUM?(CORRECTED)?(mg/dL) 9.1 ASSESSMENT/PLAN: Synchronously detected MMR proficient, 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 pTis N0 M0 well-differentiated adenocarcinoma, intramucosal in a polyp PET CT scan/CT chest abdomen pelvis with IV contrast do not reveal any residual disease. Last scan done on 03/14/2024 Genetic testing for Blackburn syndrome negative Type 2 diabetes currently on insulin. Patient's transaminitis has been improving since stopping diabetic drugs Hepatitis panel is negative MRCP is negative Patient did well with the last chemotherapy with FOLFOX CEA has been uptrending Naterra positive for colon cancer Will get CT chest abdomen pelvis to see the disease CBC CMP CEA Proceed with chemotherapy. As patient is very concerned about chemo and side effects we will continue at 25% dose reduced CBC CMP CEA CT chest abdomen pelvis RETURN TO CLINIC: 3 weeks to review the results BILLING AND COMPLIANCE: I reviewed external records from providers outside my specialty as summarized above. I spent a total of 50 minutes on this patient?s care on the day of their visit excluding time spent related to any billed procedures. This time includes time spent with the patient as well as time spent documenting in the medical record, reviewing patients records and tests, obtaining history, placing orders, communicating with other healthcare professionals, counseling the patient, family or caregiver, and/or care coordination for the diagnoses above. Electronically Signed by: Janes Irene MD T: 2:15 PM CC: PCP: Rd Hickey Referring: Rd Hickey This document was completed utilizing speech recognition software. Grammatical errors, random word insertions, pronoun errors, and incomplete sentences are an occasional consequence of this system due to software limitations, ambient noise, and hardware issues. Any formal questions or concerns about the content, text or information contained within the body of this dictation should be directly addressed to the provider for clarification.
== END 2024-05-11 23:59 | disposition home or self-care (01) ==
LOC: SCTC 09:22
PROVIDERS: PCP Family Medicine; Referring Provider Family Medicine; Visit Provider Internal Medicine Hematology & Oncology
DX: Z51.11 Encounter for antineoplastic chemotherapy (principal); C18.2 Malignant neoplasm of ascending colon; C23 Malignant neoplasm of gallbladder; Z90.49 Acquired absence of other specified parts of digestive tract; E11.9 Type 2 diabetes mellitus without complications; Z79.4 Long term (current) use of insulin
CPT/HCPCS: 36591; 80053; 82378; 85025; 96360; 96365; 96366; 96367; 96368; 96411; 96413; 96415; 96416; 99213; A4216; J0640; J1100; J1453; J1642; J2405; J2997; J7030; J7050; J9190; J9263; G0463

== ENCOUNTER → 2024-05-21 | Outpatient (CLI) | payer MEDICARE, MEDICAID, SELFPAY ==
--- NOTE | 2024-05-21 13:00 | XR_ITS ---
Examination: CT chest with intravenous contrast CT abdomen with intravenous contrast CT pelvis with intravenous contrast CT chest without intravenous contrast CT abdomen without intravenous contrast CT pelvis without intravenous contrast 2-D coronal and sagittal reconstructions Time of exam: May 21, 2024 1412 hours Comparison March 14, 2024 INDICATIONS: Diagnosis malignant neoplasm ascending colon, undergoing chemotherapy, restaging CTDI: vol (mGy) : 24.4 DLP: (mGycm): 1147 Technique: Multiple axial images of the chest, abdomen and pelvis with intravenous contrast, 3.0 mm slice thickness. Images obtained pre and post intravenous injection Isovue 370 60 cc. 2-D sagittal and coronal reconstructions. Low dose protocols were performed. One or more of the following dose reduction techniques were used; automated exposure control, adjustment of the mA and/or KV according to patient size, use of iterative reconstruction technique. Findings: Thoracic aortic calcification no aneurysmal dilatation No pulmonary artery emboli No paratracheal tracheobronchial or bronchopulmonary adenopathy 6 mm pulmonary nodule posterior left lung image 114 No visualized liver or splenic lesion Gallbladder is not identified No pancreatic or adrenal mass 3 mm left lateral periaortic lymph node 5 mm left lateral periaortic lymph node Right colonic sutures No bowel obstruction No ascites Urinary bladder intact with thickening of the anterior urinary bladder wall up to 3 mm No pelvic mass Moderate osteopenia IMPRESSION: No mediastinal lymphadenopathy 6 mm pulmonary nodule posterior left lung, with this study as baseline recommend 1 additional 6 month follow-up CT chest without contrast Subcentimeter para-aortic lymph nodes, clinical correlation advised
== END | disposition home or self-care (01) ==
PROVIDERS: PCP Family Medicine; Referring Provider Internal Medicine Hematology & Oncology; Visit Provider Internal Medicine Hematology & Oncology
DX: R91.1 Solitary pulmonary nodule (principal); C18.2 Malignant neoplasm of ascending colon; C23 Malignant neoplasm of gallbladder
CPT/HCPCS: 71270; 74178; A4649; Q9967

== ENCOUNTER 2024-06-08 08:02 | Outpatient (RCR) | payer MEDICARE, MEDICAID, SELFPAY ==
[2024-05-22 13:03] LABS: Basophils # (Auto) 0.1 Thou/mm3 (0.0-0.2); Basophils % (Auto) 1 % (0-2.5); Eosinophils # (Auto) 0.1 Thou/mm3 (0.0-0.5); Eosinophils % (Auto) 2 % (0-10); Hematocrit 31.5 % (36.0-46.0); Hemoglobin 10.2 g/dL (12.0-16.0); Immature Granulocytes % (Auto) 0 % (0-0); Immature Granulocytes Auto 0.03 Thou/mm3 (0.00-0.00); Lymphocytes # (Auto) 2.8 Thou/mm3 (1.0-4.8); Lymphocytes % (Auto) 35 % (10-50); Mean Corpuscular HGB Conc 32.4 g/dl (31.0-37.0); Mean Corpuscular Hemoglobin 26.6 pg (25.0-35.0); Mean Corpuscular Volume 82 fL (80-100); Monocytes # (Auto) 1.1 Thou/mm3 (0.0-0.8); Monocytes % (Auto) 14 % (0-12); Neutrophils # (Auto) 3.7 Thou/mm3 (1.8-7.7); Neutrophils % (Auto) 47 % (37-80); Nucleated Red Blood Cell % 0 /100 WBC (0); Platelet Count 291 Thou/mm3 (140-440); RDW Standard Deviation 50.3 fL (36.4-46.3); Red Blood Count 3.83 Miln/mm3 (4.00-5.20); White Blood Count 7.9 Thou/mm3 (3.6-11.0)
[2024-05-22 13:21] LABS: Alanine Aminotransferase 27 U/L (10-49); Albumin/Globulin Ratio 1.1 (1.2-2.2); Alkaline Phosphatase 189 U/L (46-116); Anion Gap 8 (7-16); Aspartate Amino Transferase 32 U/L (0-34); BUN/Creatinine Ratio 14 Ratio (12-20); Bilirubin,Total 0.3 mg/dL (0.3-1.2); Blood Urea Nitrogen 15 mg/dL (9-23); Calcium 9.5 mg/dL (8.3-10.6); Calcium (Corrected) 9.5 mg/dL (8.5-10.1); Carbon Dioxide 24.8 mMol/L (20.0-31.0); Chloride 104 mMol/L (98-107); Creatinine (Component) 1.1 mg/dL (0.6-1.3); Globulin 3.5 gm/dL (2.3-3.5); Glucose 211 mg/dL (74-106); Osmolality,Calculated 280 (275-295); Sodium 137 mMol/L (136-145); Total Protein 7.5 gm/dL (5.7-8.2); eGFR 54 See Note
[2024-05-22 13:25] LABS: Carcinoembryonic Antigen 55.3 ng/mL (0.0-5.0)
[2024-06-04 11:21] LABS: Basophils # (Auto) 0.1 Thou/mm3 (0.0-0.2); Basophils % (Auto) 1 % (0-2.5); Eosinophils # (Auto) 0.2 Thou/mm3 (0.0-0.5); Eosinophils % (Auto) 2 % (0-10); Hematocrit 30.1 % (36.0-46.0); Hemoglobin 9.6 g/dL (12.0-16.0); Immature Granulocytes % (Auto) 0 % (0-0); Immature Granulocytes Auto 0.02 Thou/mm3 (0.00-0.00); Lymphocytes # (Auto) 2.6 Thou/mm3 (1.0-4.8); Lymphocytes % (Auto) 28 % (10-50); Mean Corpuscular HGB Conc 31.9 g/dl (31.0-37.0); Mean Corpuscular Hemoglobin 26.7 pg (25.0-35.0); Mean Corpuscular Volume 84 fL (80-100); Monocytes # (Auto) 1.2 Thou/mm3 (0.0-0.8); Monocytes % (Auto) 14 % (0-12); Neutrophils % (Auto) 55 % (37-80); Nucleated Red Blood Cell % 0 /100 WBC (0); Platelet Count 299 Thou/mm3 (140-440); RDW Standard Deviation 51.3 fL (36.4-46.3); White Blood Count 9.1 Thou/mm3 (3.6-11.0)
[2024-06-04 11:37] LABS: Alanine Aminotransferase 83 U/L (10-49); Albumin, Serum 3.9 gm/dL (3.4-4.8); Albumin/Globulin Ratio 1.1 (1.2-2.2); Alkaline Phosphatase 311 U/L (46-116); Anion Gap 12 (7-16); Aspartate Amino Transferase 91 U/L (0-34); BUN/Creatinine Ratio 17 Ratio (12-20); Bilirubin,Total 0.3 mg/dL (0.3-1.2); Blood Urea Nitrogen 19 mg/dL (9-23); Calcium 9.2 mg/dL (8.3-10.6); Calcium (Corrected) 9.3 mg/dL (8.5-10.1); Carbon Dioxide 21.9 mMol/L (20.0-31.0); Chloride 104 mMol/L (98-107); Creatinine (Component) 1.1 mg/dL (0.6-1.3); Globulin 3.5 gm/dL (2.3-3.5); Glucose 293 mg/dL (74-106); Osmolality,Calculated 288 (275-295); Potassium 3.7 mMol/L (3.4-5.1); Sodium 138 mMol/L (136-145); Total Protein 7.4 gm/dL (5.7-8.2); eGFR 54 See Note
[2024-06-06 09:45] LABS: Misc Send Out* See Sep Rpt
== END 2024-06-08 23:59 | disposition home or self-care (01) ==
LOC: SCTC 08:02
PROVIDERS: PCP Family Medicine; Referring Provider Internal Medicine Hematology & Oncology; Visit Provider Internal Medicine Hematology & Oncology
DX: Z51.11 Encounter for antineoplastic chemotherapy (principal); C18.2 Malignant neoplasm of ascending colon; C23 Malignant neoplasm of gallbladder; Z90.49 Acquired absence of other specified parts of digestive tract; E11.9 Type 2 diabetes mellitus without complications; Z79.4 Long term (current) use of insulin; K83.1 Obstruction of bile duct
CPT/HCPCS: 36591; 80053; 82378; 85025; 96360; 96365; 96366; 96367; 96368; 96375; 96413; 96415; 96416; 99213; A4216; J0640; J1100; J1453; J1642; J2405; J2997; J7030; J7050; J7060; J9190; J9263; G0463

== ENCOUNTER 2024-07-09 11:34 | Outpatient (RCR) | payer MEDICARE, MEDICAID, SELFPAY ==
[2024-06-19 11:00] LABS: Basophils % (Auto) 1 % (0-2.5); Eosinophils # (Auto) 0.2 Thou/mm3 (0.0-0.5); Eosinophils % (Auto) 2 % (0-10); Hematocrit 30.6 % (36.0-46.0); Hemoglobin 10.2 g/dL (12.0-16.0); Immature Granulocytes % (Auto) 0 % (0-0); Immature Granulocytes Auto 0.02 Thou/mm3 (0.00-0.00); Lymphocytes # (Auto) 3.1 Thou/mm3 (1.0-4.8); Lymphocytes % (Auto) 38 % (10-50); Mean Corpuscular HGB Conc 33.3 g/dl (31.0-37.0); Mean Corpuscular Hemoglobin 27.9 pg (25.0-35.0); Mean Corpuscular Volume 84 fL (80-100); Monocytes # (Auto) 0.9 Thou/mm3 (0.0-0.8); Monocytes % (Auto) 12 % (0-12); Neutrophils # (Auto) 3.8 Thou/mm3 (1.8-7.7); Neutrophils % (Auto) 48 % (37-80); Nucleated Red Blood Cell % 0 /100 WBC (0); Platelet Count 258 Thou/mm3 (140-440); RDW Standard Deviation 51.3 fL (36.4-46.3); Red Blood Count 3.66 Miln/mm3 (4.00-5.20)
[2024-06-19 11:23] LABS: Carcinoembryonic Antigen 12.7 ng/mL (0.0-5.0)
[2024-06-19 11:25] LABS: Alanine Aminotransferase 22 U/L (10-49); Albumin, Serum 3.8 gm/dL (3.4-4.8); Albumin/Globulin Ratio 1.1 (1.2-2.2); Alkaline Phosphatase 202 U/L (46-116); Anion Gap 8 (7-16); Aspartate Amino Transferase 30 U/L (0-34); BUN/Creatinine Ratio 16 Ratio (12-20); Bilirubin,Total 0.3 mg/dL (0.3-1.2); Blood Urea Nitrogen 16 mg/dL (9-23); Calcium (Corrected) 9.2 mg/dL (8.5-10.1); Carbon Dioxide 23.4 mMol/L (20.0-31.0); Chloride 105 mMol/L (98-107); Globulin 3.4 gm/dL (2.3-3.5); Glucose 235 mg/dL (74-106); Osmolality,Calculated 281 (275-295); Sodium 136 mMol/L (136-145); Total Protein 7.2 gm/dL (5.7-8.2); eGFR > 60 See Note
[2024-07-03 14:22] LABS: Basophils # (Auto) 0.1 Thou/mm3 (0.0-0.2); Basophils % (Auto) 1 % (0-2.5); Eosinophils # (Auto) 0.1 Thou/mm3 (0.0-0.5); Eosinophils % (Auto) 1 % (0-10); Hematocrit 30.7 % (36.0-46.0); Hemoglobin 10.1 g/dL (12.0-16.0); Immature Granulocytes % (Auto) 0 % (0-0); Immature Granulocytes Auto 0.02 Thou/mm3 (0.00-0.00); Lymphocytes % (Auto) 42 % (10-50); Mean Corpuscular HGB Conc 32.9 g/dl (31.0-37.0); Mean Corpuscular Hemoglobin 27.7 pg (25.0-35.0); Mean Corpuscular Volume 84 fL (80-100); Monocytes # (Auto) 0.9 Thou/mm3 (0.0-0.8); Monocytes % (Auto) 9 % (0-12); Neutrophils # (Auto) 4.4 Thou/mm3 (1.8-7.7); Neutrophils % (Auto) 47 % (37-80); Nucleated Red Blood Cell % 0 /100 WBC (0); Platelet Count 314 Thou/mm3 (140-440); RDW Standard Deviation 49.5 fL (36.4-46.3); Red Blood Count 3.65 Miln/mm3 (4.00-5.20); White Blood Count 9.5 Thou/mm3 (3.6-11.0)
[2024-07-03 14:40] LABS: Alanine Aminotransferase 46 U/L (10-49); Albumin, Serum 4.1 gm/dL (3.4-4.8); Albumin/Globulin Ratio 1.2 (1.2-2.2); Alkaline Phosphatase 331 U/L (46-116); Anion Gap 10 (7-16); Aspartate Amino Transferase 47 U/L (0-34); BUN/Creatinine Ratio 19 Ratio (12-20); Bilirubin,Total 0.2 mg/dL (0.3-1.2); Blood Urea Nitrogen 19 mg/dL (9-23); Calcium 9.8 mg/dL (8.3-10.6); Calcium (Corrected) 9.8 mg/dL (8.5-10.1); Carbon Dioxide 24.8 mMol/L (20.0-31.0); Chloride 101 mMol/L (98-107); Globulin 3.4 gm/dL (2.3-3.5); Glucose 225 mg/dL (74-106); Osmolality,Calculated 281 (275-295); Potassium 4.1 mMol/L (3.4-5.1); Sodium 136 mMol/L (136-145); Total Protein 7.5 gm/dL (5.7-8.2); eGFR > 60 See Note
[2024-07-03 14:42] LABS: Carcinoembryonic Antigen 7.2 ng/mL (0.0-5.0)
--- NOTE | 2024-07-09 23:47 | CTCFLWUP_ITS ---
Patient: SHELLEY CAMPOS : 1955 Page 7 of 8 FOLLOW UP NOTE DATE OF SERVICE: 07/09/2024 NAME: SHELLEY CAMPOS ACCOUNT: [id number] : 1955 AGE: 68 INTERVAL HISTORY: Patient is feeling better now she has done well with the last treatment. She has not lost any more weight. Her appetite is good ONCOLOGY HISTORY: DIAGNOSIS: Malignant neoplasm of ascending colon [ICD10] C18.2 DATE OF DIAGNOSIS: 11/20/2023 STAGE/TNM: Stage 4 colon and localized gall bladder TREATMENT HISTORY: Care?Plan Start?Date Cycle Day Intent mFOLFOX-6?-?5FU?400?+?2400?CIV,?LVR?400,OXALIplat?85 02/15/2024 1 14 Curative?(adjuvant) HISTORY OF PRESENT ILLNESS: Shelley Campos is a 69-year-old S[place] speaking Other female with with following oncology history. 09/16/2015: Ms. Campos had a left hemicolectomy Pathology 11/20/2023-tumor site cecum well-differentiated G1 adenocarcinoma 2.5 x 1 cm proximal distal radial uninvolved by tumor No regional lymph node metastasis number of lymph nodes examined 11 number of lymph nodes involved 6 tumor deposits present in 2 T3 tumor invades through the muscularis propria into pericolorectal tissue pN2a and the tumor except extensive necrosis No loss of expression ANNAMARIA-no MMR Gallbladder showed simple cholecystectomy adenocarcinoma at the intestinal-type well-differentiated tumor present deep to the muscular layer but does not demonstrate reaching the serosa liver parenchyma margin cannot be assessed 1 lymph nodes submitted negative for cancer T2 N[address] PET CT scan 01/17/2024 shows 12 mm hypermetabolic focus anterior abdominal wall recommend high-resolution CT abdomen pelvis post IV contrast also noted hypermetabolic carotid triangle lymphadenopathy 11 mm and 8 mm in the left and right carotid triangle respectively. No night simona hypermetabolism in the chest no lung nodules. 11/18/2023: Hemoglobin 8.4, MCV 72, WBC 15.3, ANC 9.2, platelets 474,000. 11/17/2023: Patient had colonoscopy done and found to have a cecal mass. Biopsy showed well-differentiated invasive adenocarcinoma. 11/18/2023: CT scan of the chest abdomen and pelvis with IV contrast 11/19/2023: CEA 61.9 11/20/2023: Ms. Campos had exploratory laparotomy, right colectomy and cholecystectomy. Ms. Campos was found to have near obstructing tumor of the cecum, distended gallbladder with multiple gallstones and chronic cholecystitis. Anterior surface of the liver was smooth without any nodules or lesions. No evidence of omental or peritoneal nodules. PAST MEDICAL HISTORY: HYPERTENSION DIABETES MELLITUS ANEMIA COLON CA 11/2023 PAST SURGICAL HISTORY: PORT A CATH INSERTION 12/22/23 C SECTION X1 IN 1975 [place], [place] EXPL[place] LAPARTOMOMY 11/20/23 ANAYELI VIEW CARPAL TUNNEL SX BILATERAL RIGHT SHOULDER SX 1997 LEFT KNEE SURGERY OTHER MEDICAL HISTORY/CONDITIONS: HYPERTENSION DIABETES MELLITUS ANEMIA COLON CA 11/2023 PORT A CATH INSERTION 12/22/23 C SECTION X1 IN 1975 [place], [place] EXPL[place] LAPARTOMOMY 11/20/23 ANAYELI VIEW CARPAL TUNNEL SX BILATERAL RIGHT SHOULDER SX 1997 LEFT KNEE SURGERY FAMILY HISTORY: Father:?FATHER?PROSTATE?CANCER Mother:?DENIES Sibling:?DENIES Children:?DENIES Cancer?History:?COLON?[place] SOCIAL 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 capecitabine - 500 mg 3 tab As directed 2. ferrous sulfate - 325 mg (65 mg iron) 1 tab Daily 3. Levothroid - 25 mcg 1 tab In the morning 4. losartan - 50 mg 1 tab Daily 5. Lovenox - 60 mg/0.6 mL Daily 6. multivitamin - Capsule Daily 7. Vitamin D2 - 1,250 mcg (50,000 unit) 1 Capsule Weekly Medications Last Reconciled by Gabi Garcia MD on 07/09/2024 ALLERGIES: ibuprofen REVIEW OF SYSTEMS: A complete 14-point review of systems was performed and is negative except as noted in interval history. PHYSICAL EXAMINATION: VITAL SIGNS: Temperature?99.2, B/P?137/87, Oxygen?Saturation?96% Weight?140?lbs (Change?since?07/06/24:?-5.6?lbs) PAIN: 0 - No pain ECOG Performance Status: None Alert oriented x 4 CHEST: Clear to auscultation. No wheezes or rales audible. CARDIAC: Rhythm regular, no murmurs or gallops present. ABDOMEN: Soft. Well-healed mid abdominal incision without any signs of infection No hepatomegaly. No splenomegaly. EXTREMITIES: No pedal edema or cyanosis. LABORATORY DATA: I have personally reviewed and interpreted each of the patient?s relevant lab tests, abnormal findings are below: Date 06/19/24 07/03/24 ??WHITE?BLOOD?COUNT?(Thou/mm3) 8.0 9.5 ??RED?BLOOD?COUNT?(Miln/mm3) 3.66?L 3.65?L ??HEMOGLOBIN?(gm/dl) 10.2?L 10.1?L ??HEMATOCRIT?(%) 30.6?L 30.7?L ??PLATELET?COUNT?(Thou/mm3) 258 314 ??NEUTROPHILS?%,?AUTO?(%) 48 47 ??LYMPH?%,?AUTO?(%) 38 42 ??NEUTROPHILS,?AUTO?(Thou/mm3) 3.8 4.4 ??GLUCOSE,RANDOM?(mg/dL) ? 225?H ??BLOOD?UREA?NITROGEN?(mg/dL) ? 19 ??CREATININE?(mg/dL) ? 1.00 ??SODIUM?(mmol/L) ? 136 ??POTASSIUM?(mmol/L) ? 4.1 ??CHLORIDE?(mmol/L) ? 101 ??CrCl?(CandG)?(ml/min) ? 53.46 ??AST/SGOT?(Unit/L) ? 47?H ??ALT/SGPT?(Unit/L) ? 46 ??ALKALINE?PHOSPHATASE?(Unit/L) ? 331?H ??BILIRUBIN,?TOTAL?(mg/dL) ? 0.2?L ??PROTEIN?TOTAL?(gm/dl) ? 7.5 ??ALBUMIN,?SERUM?(gm/dl) ? 4.1 ??GLOBULIN?(gm/dl) ? 3.4 ??ALBUMIN/GLOBULIN?RATIO ? 1.2 ??CALCIUM,?SERUM?(mg/dL) ? 9.8 ??CALCIUM?SERUM?(CORRECTED)?(mg/dL) ? 9.8 ??CEA?(O*)?(ng/ml) ? 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 pTis N0 M0 well-differentiated adenocarcinoma, intramucosal in a polyp PET CT scan/CT chest abdomen pelvis with IV contrast do not reveal any residual disease. Last scan done on 03/14/2024 Genetic testing for Blackburn syndrome negative Type 2 diabetes currently on insulin. Patient's transaminitis has been improving since stopping diabetic drugs She have cholestasis Hepatitis panel is negative MRCP is negative Patient did well with the last chemotherapy with FOLFOX CEA has been uptrending Naterra positive for colon cancer Will get CT chest abdomen pelvis to see the disease CBC CMP CEA Proceed with chemotherapy. As patient is very concerned about chemo and side effects we will continue at 25% dose reduced Will do ultrasound to look at gall bladder again Will proceed with treatment by holding oxaliplatin Patient have elevated LFTs. Pattern is cholestatic. 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 Will send for GI for evaluation and possible stenting if needed Will do MRCP and continue chemotherapy 05/21/2024 CT scan reviewed Dietary testing for biliary track is negative. Matera testing for colon cancer was positive. CEA is going down Will continue chemotherapy labs are now stable ORDERS: Order # Description [id number] CBC + Comprehensive Metabolic Panel + CEA [id number] Lab Appointment [id number] Follow Up Appointment [id number] Infusion 5 Hours [id number] Discontinue CIV Pump [id number] CBC + Comprehensive Metabolic Panel + CEA [id number] Lab Appointment [id number] Follow Up Appointment [id number] Infusion 5 Hours [id number] Discontinue CIV Pump [id number] CBC + Comprehensive Metabolic Panel + CEA [id number] Lab Appointment [id number] Follow Up Appointment [id number] Infusion 5 Hours [id number] Discontinue CIV Pump [id number] CBC + Comprehensive Metabolic Panel + CEA [id number] Lab Appointment [id number] Follow Up Appointment [id number] Infusion 5 Hours [id number] Discontinue CIV Pump [id number] CBC + Comprehensive Metabolic Panel + CEA [id number] Lab Appointment [id number] Follow Up Appointment [id number] Infusion 5 Hours [id number] Discontinue CIV Pump [id number] CBC + Comprehensive Metabolic Panel + CEA [id number] Lab Appointment [id number] Follow Up Appointment RETURN TO CLINIC: 2 months with imaging continue chemotherapy BILLING AND COMPLIANCE: I reviewed external records from providers outside my specialty as summarized above. I spent a total of 50 minutes on this patient?s care on the day of their visit excluding time spent related to any billed procedures. This time includes time spent with the patient as well as time spent documenting in the medical record, reviewing patients records and tests, obtaining history, placing orders, communicating with other healthcare professionals, counseling the patient, family or caregiver, and/or care coordination for the diagnoses above. Electronically Signed by: {Object.Sanct_ID*PnP.NameFL@M}, {Object.Sanct_ID*PnP.Suffix@U} D: {Object.Sanct_Date} T: {Object.Sanct_Time} CC: PCP: Waylon Goldberg Referring: Waylon Goldberg This document was completed utilizing speech recognition software. Grammatical errors, random word insertions, pronoun errors, and incomplete sentences are an occasional consequence of this system due to software limitations, ambient noise, and hardware issues. Any formal questions or concerns about the content, text or information contained within the body of this dictation should be directly addressed to the provider for clarification.
== END 2024-07-09 23:59 | disposition home or self-care (01) ==
LOC: SCTC 11:34
PROVIDERS: PCP Family Medicine; Referring Provider Family Medicine; Visit Provider Internal Medicine Hematology & Oncology
DX: Z51.11 Encounter for antineoplastic chemotherapy (principal); C18.0 Malignant neoplasm of cecum; C23 Malignant neoplasm of gallbladder; Z90.49 Acquired absence of other specified parts of digestive tract; E11.9 Type 2 diabetes mellitus without complications; K83.1 Obstruction of bile duct; R97.0 Elevated carcinoembryonic antigen [CEA]
CPT/HCPCS: 36591; 80053; 82378; 85025; 96365; 96366; 96367; 96368; 96416; 99212; A4216; J0640; J1100; J1453; J1642; J2405; J7050; J9190; J9263; G0463

== ENCOUNTER 2024-08-03 09:26 | Outpatient (RCR) | payer MEDICARE, MEDICAID, SELFPAY ==
[2024-07-17 10:35] LABS: Basophils % (Auto) 0 % (0-2.5); Eosinophils # (Auto) 0.2 Thou/mm3 (0.0-0.5); Eosinophils % (Auto) 2 % (0-10); Hemoglobin 10.4 g/dL (12.0-16.0); Immature Granulocytes % (Auto) 1 % (0-0); Immature Granulocytes Auto 0.06 Thou/mm3 (0.00-0.00); Lymphocytes # (Auto) 3.4 Thou/mm3 (1.0-4.8); Lymphocytes % (Auto) 28 % (10-50); Mean Corpuscular HGB Conc 33.5 g/dl (31.0-37.0); Mean Corpuscular Hemoglobin 28.3 pg (25.0-35.0); Mean Corpuscular Volume 84 fL (80-100); Monocytes # (Auto) 1.2 Thou/mm3 (0.0-0.8); Monocytes % (Auto) 10 % (0-12); Neutrophils # (Auto) 7.3 Thou/mm3 (1.8-7.7); Neutrophils % (Auto) 60 % (37-80); Nucleated Red Blood Cell % 0 /100 WBC (0); Platelet Count 297 Thou/mm3 (140-440); RDW Standard Deviation 49.4 fL (36.4-46.3); Red Blood Count 3.68 Miln/mm3 (4.00-5.20); White Blood Count 12.1 Thou/mm3 (3.6-11.0)
[2024-07-17 11:04] LABS: Alanine Aminotransferase 39 U/L (10-49); Albumin, Serum 3.8 gm/dL (3.4-4.8); Albumin/Globulin Ratio 1.2 (1.2-2.2); Alkaline Phosphatase 298 U/L (46-116); Anion Gap 9 (7-16); Aspartate Amino Transferase 42 U/L (0-34); BUN/Creatinine Ratio 15 Ratio (12-20); Bilirubin,Total 0.4 mg/dL (0.3-1.2); Blood Urea Nitrogen 18 mg/dL (9-23); Calcium 8.7 mg/dL (8.3-10.6); Calcium (Corrected) 8.9 mg/dL (8.5-10.1); Carbon Dioxide 22.7 mMol/L (20.0-31.0); Carcinoembryonic Antigen 6.4 ng/mL (0.0-5.0); Chloride 99 mMol/L (98-107); Creatinine (Component) 1.2 mg/dL (0.6-1.3); Globulin 3.2 gm/dL (2.3-3.5); Glucose 386 mg/dL (74-106); Osmolality,Calculated 280 (275-295); Sodium 131 mMol/L (136-145); eGFR 49 See Note
[2024-07-31 11:19] LABS: Basophils # (Auto) 0.1 Thou/mm3 (0.0-0.2); Basophils % (Auto) 1 % (0-2.5); Eosinophils # (Auto) 0.2 Thou/mm3 (0.0-0.5); Eosinophils % (Auto) 2 % (0-10); Hematocrit 29.9 % (36.0-46.0); Hemoglobin 9.7 g/dL (12.0-16.0); Immature Granulocytes % (Auto) 0 % (0-0); Immature Granulocytes Auto 0.03 Thou/mm3 (0.00-0.00); Lymphocytes # (Auto) 3.1 Thou/mm3 (1.0-4.8); Lymphocytes % (Auto) 30 % (10-50); Mean Corpuscular HGB Conc 32.4 g/dl (31.0-37.0); Mean Corpuscular Volume 86 fL (80-100); Monocytes % (Auto) 10 % (0-12); Neutrophils # (Auto) 5.7 Thou/mm3 (1.8-7.7); Neutrophils % (Auto) 57 % (37-80); Nucleated Red Blood Cell % 0 /100 WBC (0); Platelet Count 307 Thou/mm3 (140-440); Red Blood Count 3.46 Miln/mm3 (4.00-5.20); White Blood Count 10.1 Thou/mm3 (3.6-11.0)
[2024-07-31 11:48] LABS: Carcinoembryonic Antigen 5.3 ng/mL (0.0-5.0)
[2024-07-31 11:50] LABS: Alanine Aminotransferase 51 U/L (10-49); Albumin, Serum 3.9 gm/dL (3.4-4.8); Albumin/Globulin Ratio 1.3 (1.2-2.2); Alkaline Phosphatase 326 U/L (46-116); Anion Gap 6 (7-16); Aspartate Amino Transferase 68 U/L (0-34); BUN/Creatinine Ratio 13 Ratio (12-20); Bilirubin,Total 0.4 mg/dL (0.3-1.2); Blood Urea Nitrogen 14 mg/dL (9-23); Calcium 8.5 mg/dL (8.3-10.6); Calcium (Corrected) 8.6 mg/dL (8.5-10.1); Carbon Dioxide 25.7 mMol/L (20.0-31.0); Chloride 103 mMol/L (98-107); Creatinine (Component) 1.1 mg/dL (0.6-1.3); Globulin 3.1 gm/dL (2.3-3.5); Glucose 312 mg/dL (74-106); Osmolality,Calculated 282 (275-295); Potassium 4.4 mMol/L (3.4-5.1); Sodium 135 mMol/L (136-145); eGFR 54 See Note
== END 2024-08-08 23:59 | disposition home or self-care (01) ==
LOC: SCTC 09:26
PROVIDERS: PCP Family Medicine; Referring Provider Family Medicine; Visit Provider Internal Medicine Hematology & Oncology
DX: Z51.11 Encounter for antineoplastic chemotherapy (principal); C18.0 Malignant neoplasm of cecum; C23 Malignant neoplasm of gallbladder; Z90.49 Acquired absence of other specified parts of digestive tract; E11.9 Type 2 diabetes mellitus without complications; Z79.4 Long term (current) use of insulin; K83.1 Obstruction of bile duct
CPT/HCPCS: 36591; 80053; 82378; 85025; 96365; 96367; 96416; A4216; J0640; J1100; J1453; J1642; J2405; J7050; J9190

== ENCOUNTER 2024-08-31 07:38 | Outpatient (RCR) | payer MEDICARE, MEDICAID, SELFPAY ==
--- NOTE | 2024-08-14 06:17 | CTCFLWUP_ITS ---
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 She reported adherence to dietary restrictions and feeling better overall. Laboratory results showed significant improvement with CEA decreasing from 55 in May to current 5.3, and previo usly elevated Naterra marker now undetectable. Currently on cycle 10 of 12 planned chemotherapy cycles. Plan includes completing remaining chemotherapy, scheduling whole body scan after recovery, maintaining protein-rich plant-based diet, avoiding Tylenol, and follow-up in 2 months. Chief Complaint Follow-up for cancer treatment, review of recent CEA and tumor marker test results History of Present Illness Milady Rosa, a patient with a history of cancer, presents for follow-up of her ongoing chemotherapy treatment. She is currently on cycle 10 of a planned 12-cycle regimen. The patient reports adherence to dietary recommendations provided during previous visits, including avoiding milk and other specified foods. She states that she has been feeling better since following these guidelines. The patient expresses concern about the possibility of cancer recurrence, indicating ongoing anxiety about her condition despite improvements. No specific symptoms or complaints are mentioned by the patient during this visit. The focus appears to be on monitoring her response to treatment and discussing her progress. Medical History - Gallbladder cancer, previously diagnosed - Unspecified cancer, previously diagnosed with high tumor markers Medications and Supplements - Chemotherapy - Currently on cycle 10 out of 12 - Working effectively Social History - Diet: Following dietary recommendations, avoiding milk and certain foods as advised by the doctor - Nutrition: Advised to eat more protein-rich and plant-based diet, including vegetables and fruits - Substance Use: Advised to avoid Tylenol Laboratory, Imaging, and Diagnostic Test Results - Date: Not specified (Recent) - CEA: 5.3 - Previous results: - CEA: 6.4 (Last time, date not specified) - CEA: 55 (May, not specified) - Naterra testing: Undetectable (Recent) - Previous results: - Naterra testin (April, not specified) - Naterra testing: High (Before April, date not specified) - Other cancer marker (gallbladder): Negative (Recent) ONCOLOGY HISTORY: DIAGNOSIS: Malignant neoplasm of ascending colon [ICD10] C18.2 DATE OF DIAGNOSIS: 11/20/2023 STAGE/TNM: Stage 4 colon and localized gall bladder TREATMENT HISTORY: Care?Plan Start?Date Cycle Day Intent mFOLFOX-6?-?5FU?400?+?2400?CIV,?LVR?400,OXALIplat?85 02/15/2024 1 14 Curative?(adjuvant) HISTORY OF PRESENT ILLNESS: Shelley Campos is a 69-year-old S[place] speaking Other female with with following oncology history. 09/16/2015: Ms. Campos had a left hemicolectomy Pathology 11/20/2023-tumor site cecum well-differentiated G1 adenocarcinoma 2.5 x 1 cm proximal distal radial uninvolved by tumor No regional lymph node metastasis number of lymph nodes examined 11 number of lymph nodes involved 6 tumor deposits present in 2 T3 tumor invades through the muscularis propria into pericolorectal tissue pN2a and the tumor except extensive necrosis No loss of expression ANNAMARIA-no MMR Gallbladder showed simple cholecystectomy adenocarcinoma at the intestinal-type well-differentiated tumor present deep to the muscular layer but does not demonstrate reaching the serosa liver parenchyma margin cannot be assessed 1 lymph nodes submitted negative for cancer T2 N0 PET CT scan 01/17/2024 shows 12 mm hypermetabolic focus anterior abdominal wall recommend high-resolution CT abdomen pelvis post IV contrast also noted hypermetabolic carotid triangle lymphadenopathy 11 mm and 8 mm in the left and right carotid triangle respectively. No night simona hypermetabolism in the chest no lung nodules. 11/18/2023: Hemoglobin 8.4, MCV 72, WBC 15.3, ANC 9.2, platelets 474,000. 11/17/2023: Patient had colonoscopy done and found to have a cecal mass. Biopsy showed well-differentiated invasive adenocarcinoma. 11/18/2023: CT scan of the chest abdomen and pelvis with IV contrast 11/19/2023: CEA 61.9 11/20/2023: Ms. Campos had exploratory laparotomy, right colectomy and cholecystectomy. Ms. Campos was found to have near obstructing tumor of the cecum, distended gallbladder with multiple gallstones and chronic cholecystitis. Anterior surface of the liver was smooth without any nodules or lesions. No evidence of omental or peritoneal nodules. PAST MEDICAL HISTORY: HYPERTENSION DIABETES MELLITUS ANEMIA COLON CA 11/2023 PAST SURGICAL HISTORY: PORT A CATH INSERTION 12/22/23 C SECTION X1 IN 1975 [place], [place] EXPLORATORY LAPARTOMOMY 11/20/23 ANAYELI VIEW CARPAL TUNNEL SX BILATERAL RIGHT SHOULDER SX 1997 LEFT KNEE SURGERY OTHER MEDICAL HISTORY/CONDITIONS: HYPERTENSION DIABETES MELLITUS ANEMIA COLON CA 11/2023 PORT A CATH INSERTION 12/22/23 C SECTION X1 IN 1975 [place], [place] EXPLORATORY LAPARTOMOMY 11/20/23 ANAYELI VIEW CARPAL TUNNEL SX BILATERAL RIGHT SHOULDER SX 1998 LEFT KNEE SURGERY FAMILY HISTORY: Father:?FATHER?PROSTATE?CANCER Mother:?DENIES Sibling:?DENIES Children:?DENIES Cancer?History:?COLON?[place] SOCIAL HISTORY: 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 ferrous sulfate - 325 mg (65 mg iron) 1 tab Daily 2. Januvia - 25 mg 1 tab Daily 3. Lantus U-100 Insulin - 100 unit/mL As directed 4. Levothroid - 25 mcg 1 tab In the morning 5. losartan - 50 mg 1 tab Daily 6. multivitamin - Capsule Daily 7. Vitamin D2 - 1,250 mcg (50,000 unit) 1 Capsule Weekly Medications Last Reconciled by Gabi Lloyd MA on 08/13/2024 ALLERGIES: ibuprofen REVIEW OF SYSTEMS: A complete 14-point review of systems was performed and is negative except as noted in interval history. PHYSICAL EXAMINATION: VITAL SIGNS: Temperature?99.4, B/P?124/80, Oxygen?Saturation?98% PAIN: 0 - No pain ECOG Performance Status: 0 - Asymptomatic and fully active Alert oriented x 4 CHEST: Clear to auscultation. No wheezes or rales audible. CARDIAC: Rhythm regular, no murmurs or gallops present. ABDOMEN: Soft. Well-healed mid abdominal incision without any signs of infection No hepatomegaly. No splenomegaly. EXTREMITIES: No pedal edema or cyanosis. LABORATORY DATA: I have personally reviewed and interpreted each of the patient?s relevant lab tests, abnormal findings are below: Date 07/18/24 07/31/24 ??WHITE?BLOOD?COUNT?(Thou/mm3) ? 10.1 ??RED?BLOOD?COUNT?(Miln/mm3) ? 3.46?L ??HEMOGLOBIN?(gm/dl) ? 9.7?L ??HEMATOCRIT?(%) ? 29.9?L ??PLATELET?COUNT?(Thou/mm3) ? 307 ??NEUTROPHILS?%,?AUTO?(%) ? 57 ??LYMPH?%,?AUTO?(%) ? 30 ??NEUTROPHILS,?AUTO?(Thou/mm3) ? 5.7 ??GLUCOSE,RANDOM?(mg/dL) 280 312?H ??BLOOD?UREA?NITROGEN?(mg/dL) ? 14 ??CREATININE?(mg/dL) ? 1.10 ??SODIUM?(mmol/L) ? 135?L ??POTASSIUM?(mmol/L) ? 4.4 ??CHLORIDE?(mmol/L) ? 103 ??CrCl?(CandG)?(ml/min) ? 48.05 ??AST/SGOT?(Unit/L) ? 68?H ??ALT/SGPT?(Unit/L) ? 51?H ??ALKALINE?PHOSPHATASE?(Unit/L) ? 326?H ??BILIRUBIN,?TOTAL?(mg/dL) ? 0.4 ??PROTEIN?TOTAL?(gm/dl) ? 7.0 ??ALBUMIN,?SERUM?(gm/dl) ? 3.9 ??GLOBULIN?(gm/dl) ? 3.1 ??ALBUMIN/GLOBULIN?RATIO ? 1.3 ??CALCIUM,?SERUM?(mg/dL) ? 8.5 ??CALCIUM?SERUM?(CORRECTED)?(mg/dL) ? 8.6 ??CEA?(O*)?(ng/ml) ? 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 pTis N0 M0 well-differentiated adenocarcinoma, intramucosal in a polyp PET CT scan/CT chest abdomen pelvis with IV contrast do not reveal any residual disease. Last scan done on 03/14/2024 Genetic testing for Blackburn syndrome negative Type 2 diabetes currently on insulin. Hepatitis panel is negative MRCP is negative Milady Rosa, female patient with a history of cancer, presenting for follow- up of cancer treatment and monitoring. Cancer (unspecified type, possibly involving gallbladder) Assessment: Patient is showing significant improvement in cancer markers. CEA level has decreased from 55 in May to 6.4, and most recently to 5.3, indicating near remission. Naterra testing, previously high at 124 in April, is now undetectable. Another cancer marker related to gallbladder cancer is also negative. The patient is currently on cycle 10 of 12 planned chemotherapy cycles. These results suggest that the chemotherapy is effective, and the patient is responding well to treatment. Plan: - Complete remaining 2 cycles of chemotherapy - After chemotherapy completion: - Allow 1-2 weeks for recovery - Order whole body scan (chest, abdomen, pelvis) - Encourage increased water intake - Follow-up appointment in 2 months - Dietary recommendations: - Protein-rich, plant-based diet - Increase vegetable and fruit intake - Reduce meat consumption, limiting to chicken and fish - Avoid Tylenol - Continue current lifestyle modifications (avoiding milk and other specified foods) ORDERS: Order # Description [id number] Comprehensive Metabolic Panel - 12 + CBC with Auto Diff + CEA + MD Follow Up 2 Months RETURN TO CLINIC: I will see her back in the clinic in 2 months. BILLING AND COMPLIANCE: I reviewed external records from providers outside my specialty as summarized above. I spent a total of 50 minutes on this patient?s care on the day of their visit excluding time spent related to any billed procedures. This time includes time spent with the patient as well as time spent documenting in the medical record, reviewing patients records and tests, obtaining history, placing orders, communicating with other healthcare professionals, counseling the patient, family or caregiver, and/or care coordination for the diagnoses above. Electronically Signed by: {Object.Sanct_ID*PnP.NameFL@M}, {Object.Sanct_ID*PnP.Suffix@U} D: {Object.Sanct_Date} T: {Object.Sanct_Time} CC: PCP: Waylon Goldberg Referring: Waylon Goldberg This document was completed utilizing speech recognition software. Grammatical errors, random word insertions, pronoun errors, and incomplete sentences are an occasional consequence of this system due to software limitations, ambient noise, and hardware issues. Any formal questions or concerns about the content, text or information contained within the body of this dictation should be directly addressed to the provider for clarification.
[2024-08-14 11:05] LABS: Basophils # (Auto) 0.1 Thou/mm3 (0.0-0.2); Basophils % (Auto) 0 % (0-2.5); Eosinophils # (Auto) 0.3 Thou/mm3 (0.0-0.5); Eosinophils % (Auto) 3 % (0-10); Hematocrit 30.1 % (36.0-46.0); Hemoglobin 9.8 g/dL (12.0-16.0); Immature Granulocytes % (Auto) 0 % (0-0); Immature Granulocytes Auto 0.05 Thou/mm3 (0.00-0.00); Lymphocytes # (Auto) 3.6 Thou/mm3 (1.0-4.8); Lymphocytes % (Auto) 30 % (10-50); Mean Corpuscular HGB Conc 32.6 g/dl (31.0-37.0); Mean Corpuscular Hemoglobin 28.9 pg (25.0-35.0); Mean Corpuscular Volume 89 fL (80-100); Monocytes % (Auto) 8 % (0-12); Neutrophils % (Auto) 59 % (37-80); Nucleated Red Blood Cell % 0 /100 WBC (0); Platelet Count 310 Thou/mm3 (140-440); RDW Standard Deviation 50.2 fL (36.4-46.3); Red Blood Count 3.39 Miln/mm3 (4.00-5.20)
[2024-08-14 11:19] LABS: Alanine Aminotransferase 45 U/L (10-49); Albumin, Serum 3.9 gm/dL (3.4-4.8); Albumin/Globulin Ratio 1.2 (1.2-2.2); Alkaline Phosphatase 290 U/L (46-116); Anion Gap 7 (7-16); Aspartate Amino Transferase 56 U/L (0-34); BUN/Creatinine Ratio 17 Ratio (12-20); Bilirubin,Total 0.4 mg/dL (0.3-1.2); Blood Urea Nitrogen 19 mg/dL (9-23); Calcium 8.8 mg/dL (8.3-10.6); Calcium (Corrected) 8.9 mg/dL (8.5-10.1); Carbon Dioxide 24.3 mMol/L (20.0-31.0); Chloride 100 mMol/L (98-107); Creatinine (Component) 1.1 mg/dL (0.6-1.3); Globulin 3.2 gm/dL (2.3-3.5); Glucose 283 mg/dL (74-106); Osmolality,Calculated 274 (275-295); Sodium 131 mMol/L (136-145); Total Protein 7.1 gm/dL (5.7-8.2); eGFR 54 See Note
[2024-08-14 11:20] LABS: Carcinoembryonic Antigen 5.9 ng/mL (0.0-5.0)
[2024-08-28 09:00] LABS: Basophils % (Auto) 0 % (0-2.5); Eosinophils # (Auto) 0.3 Thou/mm3 (0.0-0.5); Eosinophils % (Auto) 3 % (0-10); Hematocrit 28.7 % (36.0-46.0); Hemoglobin 9.5 g/dL (12.0-16.0); Immature Granulocytes % (Auto) 0 % (0-0); Immature Granulocytes Auto 0.04 Thou/mm3 (0.00-0.00); Lymphocytes % (Auto) 25 % (10-50); Mean Corpuscular HGB Conc 33.1 g/dl (31.0-37.0); Mean Corpuscular Volume 88 fL (80-100); Monocytes # (Auto) 1.2 Thou/mm3 (0.0-0.8); Monocytes % (Auto) 10 % (0-12); Neutrophils # (Auto) 7.4 Thou/mm3 (1.8-7.7); Neutrophils % (Auto) 62 % (37-80); Nucleated Red Blood Cell % 0 /100 WBC (0); Platelet Count 311 Thou/mm3 (140-440); RDW Standard Deviation 48.5 fL (36.4-46.3); Red Blood Count 3.28 Miln/mm3 (4.00-5.20); White Blood Count 11.9 Thou/mm3 (3.6-11.0)
[2024-08-28 09:24] LABS: Alanine Aminotransferase 25 U/L (10-49); Albumin, Serum 3.7 gm/dL (3.4-4.8); Albumin/Globulin Ratio 1.2 (1.2-2.2); Alkaline Phosphatase 282 U/L (46-116); Anion Gap 8 (7-16); Aspartate Amino Transferase 28 U/L (0-34); BUN/Creatinine Ratio 15 Ratio (12-20); Bilirubin,Total 0.2 mg/dL (0.3-1.2); Blood Urea Nitrogen 18 mg/dL (9-23); Calcium 8.3 mg/dL (8.3-10.6); Calcium (Corrected) 8.5 mg/dL (8.5-10.1); Carbon Dioxide 24.6 mMol/L (20.0-31.0); Chloride 104 mMol/L (98-107); Creatinine (Component) 1.2 mg/dL (0.6-1.3); Globulin 3.1 gm/dL (2.3-3.5); Osmolality,Calculated 293 (275-295); Potassium 4.2 mMol/L (3.4-5.1); Sodium 137 mMol/L (136-145); Total Protein 6.8 gm/dL (5.7-8.2); eGFR 49 See Note
[2024-08-28 09:27] LABS: Carcinoembryonic Antigen 6.4 ng/mL (0.0-5.0)
[2024-08-28 09:35] LABS: Glucose 431 mg/dL (74-106)
== END 2024-09-08 23:59 | disposition home or self-care (01) ==
LOC: SCTC 07:38
PROVIDERS: PCP Family Medicine; Referring Provider Family Medicine; Visit Provider Internal Medicine Hematology & Oncology
DX: Z51.11 Encounter for antineoplastic chemotherapy (principal); C18.2 Malignant neoplasm of ascending colon; C23 Malignant neoplasm of gallbladder; E11.9 Type 2 diabetes mellitus without complications; Z79.4 Long term (current) use of insulin; Z90.49 Acquired absence of other specified parts of digestive tract
CPT/HCPCS: 36591; 80053; 82378; 85025; 96365; 96367; 96374; 96376; 96411; 96416; 96523; 99212; A4216; J0640; J1100; J1453; J1642; J2405; J2997; J7050; J9190; G0463

== ENCOUNTER 2024-09-14 08:11 | Outpatient (RCR) | payer MEDICARE, MEDICAID, SELFPAY ==
[2024-09-11 11:09] LABS: Basophils % (Auto) 0 % (0-2.5); Eosinophils # (Auto) 0.4 Thou/mm3 (0.0-0.5); Eosinophils % (Auto) 3 % (0-10); Hematocrit 29.2 % (36.0-46.0); Hemoglobin 9.9 g/dL (12.0-16.0); Immature Granulocytes % (Auto) 0 % (0-0); Immature Granulocytes Auto 0.03 Thou/mm3 (0.00-0.00); Lymphocytes # (Auto) 3.6 Thou/mm3 (1.0-4.8); Lymphocytes % (Auto) 32 % (10-50); Mean Corpuscular HGB Conc 33.9 g/dl (31.0-37.0); Mean Corpuscular Hemoglobin 29.4 pg (25.0-35.0); Mean Corpuscular Volume 87 fL (80-100); Monocytes % (Auto) 9 % (0-12); Neutrophils # (Auto) 6.1 Thou/mm3 (1.8-7.7); Neutrophils % (Auto) 55 % (37-80); Nucleated Red Blood Cell % 0 /100 WBC (0); Platelet Count 296 Thou/mm3 (140-440); RDW Standard Deviation 46.2 fL (36.4-46.3); Red Blood Count 3.37 Miln/mm3 (4.00-5.20); White Blood Count 11.1 Thou/mm3 (3.6-11.0)
[2024-09-11 11:30] LABS: Carcinoembryonic Antigen 7.2 ng/mL (0.0-5.0)
[2024-09-11 11:31] LABS: Alanine Aminotransferase 40 U/L (10-49); Albumin, Serum 3.8 gm/dL (3.4-4.8); Albumin/Globulin Ratio 1.3 (1.2-2.2); Alkaline Phosphatase 288 U/L (46-116); Anion Gap 12 (7-16); Aspartate Amino Transferase 46 U/L (0-34); BUN/Creatinine Ratio 15 Ratio (12-20); Bilirubin,Total 0.2 mg/dL (0.3-1.2); Blood Urea Nitrogen 15 mg/dL (9-23); Calcium 8.5 mg/dL (8.3-10.6); Calcium (Corrected) 8.7 mg/dL (8.5-10.1); Carbon Dioxide 26.2 mMol/L (20.0-31.0); Chloride 100 mMol/L (98-107); Globulin 2.9 gm/dL (2.3-3.5); Glucose 298 mg/dL (74-106); Osmolality,Calculated 287 (275-295); Sodium 138 mMol/L (136-145); Total Protein 6.7 gm/dL (5.7-8.2); eGFR > 60 See Note
== END 2024-10-08 23:59 | disposition home or self-care (01) ==
LOC: SCTC 08:11
PROVIDERS: PCP Family Medicine; Referring Provider Internal Medicine Hematology & Oncology; Visit Provider Internal Medicine Hematology & Oncology
DX: Z51.11 Encounter for antineoplastic chemotherapy (principal); C18.2 Malignant neoplasm of ascending colon; C23 Malignant neoplasm of gallbladder; Z90.49 Acquired absence of other specified parts of digestive tract; E11.9 Type 2 diabetes mellitus without complications; Z79.4 Long term (current) use of insulin
CPT/HCPCS: 36591; 80053; 82378; 85025; 96365; 96367; 96368; 96416; 96523; A4216; J0640; J1100; J1453; J1642; J2405; J7050; J9190

== ENCOUNTER 2024-09-16 18:33 | Emergency (ER) | payer MEDICARE, MEDICAID, SELFPAY ==
[2024-09-16 18:34] VITALS: BMI 27.3
--- NOTE | 2024-09-16 19:08 | XR_ITS ---
Examination: PA lateral chest 2 views TECHNIQUE: Upright PA lateral chest 2 views Date and time: September 16, 2024 1934 hours INDICATIONS: Patient fell today with injury to the chest, chest pain FINDINGS: Normal heart size No pneumothorax Left subclavian Port-A-Cath tip satisfactory position Clavicles ribs appear intact IMPRESSION: No pneumothorax pulmonary contusion or hemothorax
--- NOTE | 2024-09-16 19:08 | XR_ITS ---
Examination: CT brain head without contrast. 2-D sagittal coronal reconstructions Date and time of exam:September 16, 2024 1917 hours INDICATIONS: Patient fell 2 days ago with injury to the head, head pain CTDI: vol (mGy):47.8 DLP: (mGycm):901 Technique: Multiple CT axial sections of the brain have been obtained, 5 mm slice thickness. Contrast has not been administered. 2-D sagittal, coronal reconstructions have been obtained Low dose protocols were performed. One or more of the following dose reduction techniques were used; automated exposure control, adjustment of the mA and/or KV according to patient size, use of iterative reconstruction technique. Findings: No significant ventricular enlargement. Intra-axial or extra-axial hemorrhage density is not seen. No mass effect or midline shift Basal cisterns are not remarkable. Fourth ventricle is midline. Cranial vault intact. Impression: Negative for acute hemorrhage, mass effect or midline shift
--- NOTE | 2024-09-16 19:09 | EDNOTE_ITS ---
ED Fall Injury RME/HPI General Chief Complaint: Fall Stated Complaint: FALL/ RIGHT RIB PAIN Time Seen by Provider: 09/16/24 18:58 Arrival date/time: 09/16/24 18:33 Limitations: no limitations RME / HPI RME / HPI Narrative: 69-year-old female with history of diabetes and colon cancer states today woke up and was having a normal day. States felt a little dizzy from low blood sugar eat a snack but was not feeling quite herself got up too fast causing a trip and fall. Tried to brace herself but struck her head and the left side of her ribs. She is worried about the port on her left side of her chest. States finished chemo recently. Was told she is at high risk for fractures and she is worried. Does not take pain medication usually for her colon cancer. But states this pain is pretty bad came in worried about a fracture. She is not on blood thinners but her head is still hurting. Related Data Home Medications ?Medication ?Instructions ?Recorded ?Confirmed insulin glargine 100 unit/mL (3 20 unit subcut HS 11/0102/06/24 mL) subcutaneous pen (Basaglar KwikPen U-100 Insulin) sitagliptin phosphate 100 mg 100 mg PO QDAY 11/16/23 1 tablet (Januvia) atorvastatin 40 mg tablet 20 mg PO QDAY 11/17/2302/05 empagliflozin 25 mg tablet 25 mg PO QDAY 11/17/2301/10 (Jardiance) losartan 50 mg-hydrochlorothiazide 1 tab PO QDAY 12/2002/06/24 12.5 mg tablet Previous Rx's ?Medication ?Instructions ?Recorded ascorbic acid (vitamin C) 250 mg 500 mg (2 x 250 mg) P O BID #60 tabs 11/26/23 tablet (Vitamin C) zinc sulfate 50 mg zinc (220 mg) 220 mg (4.4 x 50 mg z inc (220 mg)) 11/26/23 capsule PO QDAY #30 caps docusate sodium 100 mg capsule 100 mg PO BID #30 caps 02/07/24 (Colace) hydrocodone 5 mg-acetaminophen 325 1 tab PO Q6H PRN pa in (scale score 02/07/24 mg tablet 7-10) #15 tabs hydrocodone 5 mg-acetaminophen 325 1 tab PO BID PRN pa in #7 tabs 03/08/24 mg tablet hydrocodone 5 mg-acetaminophen 325 1 tab PO BID PRN pa in 7 days #14 09/16/ mg tablet tabs Allergies Allergy/AdvReac Type Severity Reaction Status Date / Time Gadolinium-Containing Allergy Severe Hives Verified 04/24/24 10:46 Contrast Medi Review of Systems Review of Systems Systems Reviewed: All systems reviewed, normal except as documented Gastrointestinal Gastrointestinal: Reports as per HPI Musculoskeletal Musculoskeletal: Reports as per HPI ED Exam General Limitations: Present no limitations General appearance: Present alert and in no apparent distress Head Head exam: Present atraumatic Eye Eye exam: Present normal appearance, PERRL and EOMI ENT ENT exam: Present normal exam, normal oropharynx and mucous membranes moist Neck Neck exam: Present normal inspection, full ROM and trachea midline Chest Chest inspection: Present normal inspection, symmetric chest wall rise and tenderness (TTP to left lower ribs) Respiratory Respiratory exam: Present normal lung sounds bilaterally Cardiovascular Cardiovascular exam: Present regular rate, normal rhythm and normal heart sounds Abdominal Exam Abdominal exam: Present soft and normal bowel sounds Extremities Exam Extremities exam: Present normal inspection and full ROM Back Exam Back exam: Present normal inspection and full ROM Neurological Exam Neurological exam: Present alert, oriented X3 and CN II-XII intact Psychiatric Psychiatric exam: Present normal affect and normal mood Skin Skin exam: Present warm, dry, intact and normal color Course Quality Measures none Orders Category Date Time Status CT head/brain wo con Stat Exams 09/16/24 19:08 Completed XR chest 2V Stat Exams 09/16/24 19:08 Completed HYDROcodone*/APAP 5/325 [[place] 5/325] Med 09/16/24 19:08 Discontinued 1 tab PO X1 ONE Ketorolac Inj [Toradol Inj] Med 09/16/24 19:08 Discontinued 30 mg IM X1 ONE Vital Signs Vital signs: Vital Signs Temperature 98.6 F 09/16/24 19:10 Pulse Rate 89 09/16/24 19:10 Respiratory Rate 18 09/16/24 19:10 Blood Pressure 117/78 09/16/24 19:10 Pulse Oximetry (%) 96 09/16/24 19:10 Oxygen Delivery Method Room Air 09/16/24 19:10 Fall Patient data External records reviewed:: [facility] previous records Clinical information provided by:: patient and family Social determinants that could affect healthcare access:: other (specify) Patient has the following chronic illnesses:: Colon cancer and diabetes How is presenting disease/condition affected by chronic disease/condition?: exacerbated by (Both these conditions can cause balance problems) Evaluation data The following diagnostics were reviewed and interpreted by me:: radiology exam(s) Lab and/or radiology exams considered but not ordered:: Labs consideration for issue were considered however given mechanical fall unlikely warranted at this time. Interpretation Summary: No rib fractures on chest x-ray and normal CT scan of head Medications / Prescriptions Medications or Prescriptions considered but not ordered:: All medications considered were given Medication administrations:: Medication Administration History Discontinued Medications Hydrocodone Bitart/Acetaminophen (Hydrocodone/Apap 5/325 Tablet) 1 tab PO X1 ONE Stop: 09/16/24 19:09 Last Admin: 09/16/24 19:29 Dose: 1 tab Documented By: HOWARD Ketorolac Tromethamine (Ketorolac Inj 60 Mg/2 Ml Vial) 30 mg IM X1 ONE Stop: 09/16/24 19:09 Last Admin: 09/16/24 19:30 Dose: 30 mg Documented By: HOWARD Prescription for home also given as patient was pain-free after administration of [place] Consultations Consultation(s) initiated? (list below): No Diagnosis Fall Differential Diagnosis: syncope, dislocation of shoulder region, fracture of wrist, compression fracture and other (Rib fracture, head bleed) Most likely diagnosis given after review of the tests above:: Mechanical fall Head injury Left rib contusion Admission Indicated Admission indicated?: not indicated Admission Request Was there a request for admission?: No Disposition Plan Disposition Plan: Discharge Discharge Attestation Discharge Attestation: The patient and all family members were given an opportunity to ask questions and understood the discharge instructions. Discharge instructions specifically effects, indications for sooner follow up or return to the emergency department, and the expected course of current diagnosis. Patient condition: Stable Discharge Plan Plan Patient Disposition: HOME (Self Care) Discharge Disposition comment: f.u with pcp in 2-3days Prescriptions/Referrals Prescriptions/Med Rec: New hydrocodone-acetaminophen 5-325 mg tablet 1 tab PO BID MDD 2 PRN (Reason: pain) 7 Days Qty: 14 0RF No Action ascorbic acid (vitamin C) [Vitamin C] 250 mg Tablet 500 mg PO BID Qty: 60 0RF zinc sulfate 50 mg zinc (220 mg) Capsule 220 mg PO QDAY Qty: 30 0RF docusate sodium [Colace] 100 mg capsule 100 mg PO BID Qty: 30 0RF hydrocodone-acetaminophen 5-325 mg tablet 1 tab PO Q6H MDD 4 PRN (Reason: pain (scale score 7-10)) Qty: 15 0RF hydrocodone-acetaminophen 5-325 mg tablet 1 tab PO BID MDD 3 PRN (Reason: pain) Qty: 7 0RF Januvia 100 mg tablet 100 mg PO QDAY Patient Comments: TAKE 1 TABLET BY MOUTH EVERY DAY insulin glargine [Basaglar KwikPen U-100 Insulin] 100 unit/mL (3 mL) insulin pen 20 unit SUBCUT HS Patient Comments: INJECT 10 UNITS SUBCUTANEOUS EVERY DAY IN THE EVENING atorvastatin 40 mg tablet 20 mg PO QDAY Patient Comments: TAKE 1 TABLET BY MOUTH EVERY DAY Jardiance 25 mg tablet 25 mg PO QDAY Patient Comments: TAKE 1 TABLET BY MOUTH EVERY DAY FOR 90 DAYS losartan-hydrochlorothiazide 50-12.5 mg Tablet 1 tab PO QDAY Referrals: Rd Hickey MD [Primary Care Provider] - In 1 week Problem List Clinical Impression: Fall, Contusion of rib on left side, Head injury due to trauma, Colon cancer Patient/Caregiver Discharge Instructions Education Materials: ED Contusion, Rib, ED Fall Dizziness Weakn Balance Print Language: Georgian Stand Alone Forms: Vielka Award Info., Patient Portal Info Letter PA/CENTER MACHINE SET UP OPERATOR Supervising Physician PA/CENTER MACHINE SET UP OPERATOR Supervising Physician: Dr. Arriaga
[2024-09-16 19:10] VITALS: BP 117/78; PULSE 89; RESP 18; TEMP 37; O2SAT 96
[2024-09-16] MEDS: HYDROcodone/APAP 5/325 TABLET 1 TAB PO (19:29)
[2024-09-16] MEDS: KETOROLAC INJ 60 MG/2 ML VIAL 30 MG IM (19:30)
[2024-09-16 20:16] VITALS: BP 125/85; PULSE 75; RESP 14; TEMP 37; O2SAT 99
[2024-09-16 20:56] VITALS: PULSE 75; RESP 14; TEMP 37; O2SAT 99
== END 2024-09-16 20:57 | disposition home or self-care (01) ==
PROVIDERS: Emergency Provider Emergency Medicine; PCP Family Medicine
DX: S20.212A Contusion of left front wall of thorax, initial encounter (principal); S09.90XA Unspecified injury of head, initial encounter; C18.9 Malignant neoplasm of colon, unspecified; W01.0XXA Fall on same level from slipping, tripping and stumbling without subsequent striking against object, initial encounter
CPT/HCPCS: 70450; 71046; 96372; 99284; J1885; A9270

== ENCOUNTER → 2024-10-01 | Outpatient (CLI) | payer MEDICARE, MEDICAID, SELFPAY ==
--- NOTE | 2024-10-01 10:00 | XR_ITS ---
Examination: CT chest with intravenous contrast CT abdomen with intravenous contrast CT pelvis with intravenous contrast CT chest without intravenous contrast CT abdomen without intravenous contrast CT pelvis without intravenous contrast 2-D coronal and sagittal reconstructions Time of exam: October 01, [address] chest abdomen pelvis May 21, 2024, MR abdomen April 24, 2024, MRCP April 03, 2024 INDICATIONS: Diagnosis malignant neoplasm ascending colon, post surgery completed chemotherapy September 14, 2024 CTDI: vol (mGy) : 45.51 DLP: (mGycm): 1235 Technique: Multiple axial images of the chest, abdomen and pelvis with intravenous contrast, 3.0 mm slice thickness. Images obtained post intravenous injection Isovue 370 60 cc. 2-D sagittal and coronal reconstructions. Low dose protocols were performed. One or more of the following dose reduction techniques were used; automated exposure control, adjustment of the mA and/or KV according to patient size, use of iterative reconstruction technique. Findings: Thoracic aortic calcification no aneurysmal dilatation Pulmonary artery opacification is poor No paratracheal tracheobronchial or bronchopulmonary adenopathy Restrictive airways disease pattern Moderate vascular congestion No interval liver or splenic lesions Gallbladder is not visualized No extra hepatic biliary tract dilatation No pancreatic or adrenal mass 1 mm to 6 mm left lateral periaortic lymph nodes, stable compared to May 21, 2024 No pelvic lymphadenopathy Contracted urinary bladder, urinary bladder wall thickening Atrophic retroverted uterus Right colonic sutures Prominent osteopenia Grade 1 anterolisthesis L4 on L5 grade 1 spondylolisthesis L5 on S1 IMPRESSION: No pulmonary nodules currently depicted Moderate vascular congestion Restricted airways disease pattern Stable minimal left lateral periaortic lymphadenopathy compared with May 21, 2024
== END | disposition home or self-care (01) ==
LOC: CCTX 09:52
PROVIDERS: Referring Provider Internal Medicine Hematology & Oncology; Visit Provider Internal Medicine Hematology & Oncology
DX: C18.2 Malignant neoplasm of ascending colon (principal); C23 Malignant neoplasm of gallbladder; R59.0 Localized enlarged lymph nodes
CPT/HCPCS: 71270; 74178; A4649; Q9967

== ENCOUNTER 2024-10-23 08:43 | Outpatient (RCR) | payer MEDICARE, MEDICAID, SELFPAY ==
[2024-10-09 10:30] LABS: Basophils # (Auto) 0.1 Thou/mm3 (0.0-0.2); Basophils % (Auto) 1 % (0-2.5); Eosinophils # (Auto) 0.2 Thou/mm3 (0.0-0.5); Eosinophils % (Auto) 2 % (0-10); Hematocrit 34.8 % (36.0-46.0); Hemoglobin 11.2 g/dL (12.0-16.0); Immature Granulocytes Auto 0.03 Thou/mm3 (0.00-0.00); Lymphocytes # (Auto) 3.5 Thou/mm3 (1.0-4.8); Lymphocytes % (Auto) 29 % (10-50); Mean Corpuscular HGB Conc 32.2 g/dl (31.0-37.0); Mean Corpuscular Hemoglobin 29.2 pg (25.0-35.0); Mean Corpuscular Volume 91 fL (80-100); Monocytes # (Auto) 0.9 Thou/mm3 (0.0-0.8); Monocytes % (Auto) 8 % (0-12); Neutrophils # (Auto) 7.1 Thou/mm3 (1.8-7.7); Neutrophils % (Auto) 60 % (37-80); Nucleated Red Blood Cell # 0.00 Thou/mm3 (0.00-0.00); Nucleated Red Blood Cell % 0 /100 WBC (0); Platelet Count 337 Thou/mm3 (140-440); RDW Standard Deviation 47.1 fL (36.4-46.3); Red Blood Count 3.83 Miln/mm3 (4.00-5.20); White Blood Count 11.8 Thou/mm3 (3.6-11.0)
[2024-10-09 10:43] LABS: Alanine Aminotransferase 23 U/L (10-49); Albumin, Serum 4.1 gm/dL (3.4-4.8); Albumin/Globulin Ratio 1.2 (1.2-2.2); Alkaline Phosphatase 193 U/L (46-116); Anion Gap 7 (7-16); Aspartate Amino Transferase 30 U/L (0-34); BUN/Creatinine Ratio 10 Ratio (12-20); Bilirubin,Total 0.3 mg/dL (0.3-1.2); Blood Urea Nitrogen 12 mg/dL (9-23); Calcium 8.9 mg/dL (8.3-10.6); Calcium (Corrected) 8.9 mg/dL (8.5-10.1); Carbon Dioxide 23.7 mMol/L (20.0-31.0); Chloride 105 mMol/L (98-107); Creatinine (Component) 1.2 mg/dL (0.6-1.3); Globulin 3.5 gm/dL (2.3-3.5); Glucose 193 mg/dL (74-106); Osmolality,Calculated 276 (275-295); Potassium 4.0 mMol/L (3.4-5.1); Sodium 136 mMol/L (136-145); Total Protein 7.6 gm/dL (5.7-8.2); eGFR 49 See Note
[2024-10-09 10:45] LABS: Carcinoembryonic Antigen 4.4 ng/mL (0.0-5.0)
--- NOTE | 2024-10-10 14:05 | CTCFLWUP_ITS ---
Patient: SHELLEY CAMPOS : 1955 Page 2 of 2 FOLLOW UP NOTE DATE OF SERVICE: 10/10/2024 NAME: SHELLEY CAMPOS ACCOUNT: [id number] : 1955 AGE: 69 INTERVAL HISTORY: Mariel Moore, a [place] African-speaking patient with history of colon and biliary cancer, presented for follow-up monitoring. She reported stable weight at 138 pounds but decreased appetite due to altered taste perception and minimal protein intake. She developed itchy blisters around her port site. Recent Netera testing, CT scan, and genetic testing were all negative for cancer. The plan included port removal due to complications, continued cancer surveillance, encouraging protein intake despite taste changes, and annual mammogram screening. Subjective: Chief Complaint Follow-up visit for cancer monitoring, blisters around port site History of Present Illness Mariel Moore is a [place] African-speaking patient with a history of colon cancer and biliary cancer presenting for follow-up. The patient reports no significant changes since the last visit, with stable weight at 138 pounds. However, she notes decreased appetite due to altered taste perception, stating food does not taste good to me. She consumes very little protein, including eggs. The patient mentions experiencing itchy blisters around her port last week. She expresses concern about potential infection or complications related to the port. Mariel reports adherence to her follow-up schedule, including a mammogram last year, though she is unsure of the exact timing. She denies any other new symptoms or health concerns. Review of Systems General: Positive for decreased appetite. Negative for weight change. Skin: Positive for itchy blisters around port site. Gastrointestinal: Positive for altered taste. Objective: Vital Signs - Weight: 138 pounds Physical Examination Skin: Blisters noted around the port site. Laboratory, Imaging, and Diagnostic Test Results - Netera testing for cancer: Negative - CT scan: Negative for cancer - Genetic testing: Negative - Previous results: - Colon cancer screening: Negative Medical History - Gallbladder cancer, previously diagnosed - Unspecified cancer, previously diagnosed with high tumor markers Medications and Supplements - Chemotherapy - Currently on cycle 10 out of 12 - Working effectively Social History - Diet: Following dietary recommendations, avoiding milk and certain foods as advised by the doctor - Nutrition: Advised to eat more protein-rich and plant-based diet, including vegetables and fruits - Substance Use: Advised to avoid Tylenol Laboratory, Imaging, and Diagnostic Test Results - Date: Not specified (Recent) - CEA: 5.3 - Previous results: - CEA: 6.4 (Last time, date not specified) - CEA: 55 (May, not specified) - Naterra testing: Undetectable (Recent) - Previous results: - Naterra testin (April, not specified) - Naterra testing: High (Before April, date not specified) - Other cancer marker (gallbladder): Negative (Recent) ONCOLOGY HISTORY: DIAGNOSIS: Malignant neoplasm of ascending colon [ICD10] C18.2 DATE OF DIAGNOSIS: 11/20/2023 STAGE/TNM: Stage 4 colon and localized gall bladder TREATMENT HISTORY: Care?Plan Start?Date Cycle Day Intent mFOLFOX-6?-?5FU?400?+?2400?CIV,?LVR?400,OXALIplat?85 02/15/2024 1 14 Curative?(adjuvant) HISTORY OF PRESENT ILLNESS: Shelley Campos is a 69-year-old SPA speaking Other female with with following oncology history. 09/16/2015: Ms. Campos had a left hemicolectomy Pathology 11/20/2023-tumor site cecum well-differentiated G1 adenocarcinoma 2.5 x 1 cm proximal distal radial uninvolved by tumor No regional lymph node metastasis number of lymph nodes examined 11 number of lymph nodes involved 6 tumor deposits present in 2 T3 tumor invades through the muscularis propria into pericolorectal tissue pN2a and the tumor except extensive necrosis No loss of expression ANNAMARIA-no MMR Gallbladder showed simple cholecystectomy adenocarcinoma at the intestinal-type well-differentiated tumor present deep to the muscular layer but does not demonstrate reaching the serosa liver parenchyma margin cannot be assessed 1 lymph nodes submitted negative for cancer T2 N0 PET CT scan 01/17/2024 shows 12 mm hypermetabolic focus anterior abdominal wall recommend high-resolution CT abdomen pelvis post IV contrast also noted hypermetabolic carotid triangle lymphadenopathy 11 mm and 8 mm in the left and right carotid triangle respectively. No night simona hypermetabolism in the chest no lung nodules. 11/18/2023: Hemoglobin 8.4, MCV 72, WBC 15.3, ANC 9.2, platelets 474,000. 11/17/2023: Patient had colonoscopy done and found to have a cecal mass. Biopsy showed well-differentiated invasive adenocarcinoma. 11/18/2023: CT scan of the chest abdomen and pelvis with IV contrast 11/19/2023: CEA 61.9 11/20/2023: Ms. Campos had exploratory laparotomy, right colectomy and cholecystectomy. Ms. Campos was found to have near obstructing tumor of the cecum, distended gallbladder with multiple gallstones and chronic cholecystitis. Anterior surface of the liver was smooth without any nodules or lesions. No evidence of omental or peritoneal nodules. PAST MEDICAL HISTORY: HYPERTENSION DIABETES MELLITUS ANEMIA COLON CA 11/2023 PAST SURGICAL HISTORY: PORT A CATH INSERTION 12/22/23 C SECTION X1 IN 1975 [place], [place] EXPLOR[place]ORY LAPARTOMOMY 11/20/23 ANAYELI VIEW CARPAL TUNNEL SX BILATERAL RIGHT SHOULDER SX 1997 LEFT KNEE SURGERY OTHER MEDICAL HISTORY/CONDITIONS: HYPERTENSION DIABETES MELLITUS ANEMIA COLON CA 11/2023 PORT A CATH INSERTION 12/22/23 C SECTION X1 IN 1975 [place], [place] EXPLOR[place]ORY LAPARTOMOMY 11/20/23 ANAYELI VIEW CARPAL TUNNEL SX BILATERAL RIGHT SHOULDER SX 1997 LEFT KNEE SURGERY FAMILY HISTORY: Father:?FATHER?PROSTATE?CANCER Mother:?DENIES Sibling:?DENIES Children:?DENIES Cancer?History:?COLON?[place] SOCIAL HISTORY: 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 ON [address] MEDICATIONS: 1. ferrous sulfate - 325 mg (65 mg iron) 1 tab Daily 2. Januvia - 25 mg 1 tab Daily 3. Lantus U-100 Insulin - 100 unit/mL As directed 4. Levothroid - 25 mcg 1 tab In the morning 5. losartan - 50 mg 1 tab Daily 6. multivitamin - Capsule Daily 7. Vitamin D2 - 1,250 mcg (50,000 unit) 1 Capsule Weekly Medications Last Reconciled by Mara Guevara MA on 10/10/2024 ALLERGIES: ibuprofen REVIEW OF SYSTEMS: A complete 14-point review of systems was performed and is negative except as noted in interval history. PHYSICAL EXAMINATION: VITAL SIGNS: Temperature?97, B/P?125/77, Oxygen?Saturation?98% Weight?138?lbs (Change?since?10/09/24:?0?lbs) PAIN: 0 - No pain ECOG Performance Status: 1 - Symptomatic; ambulatory; restricted in strenuous activity Alert oriented x 4 CHEST: Clear to auscultation. No wheezes or rales audible. CARDIAC: Rhythm regular, no murmurs or gallops present. ABDOMEN: Soft. Well-healed mid abdominal incision without any signs of infection No hepatomegaly. No splenomegaly. EXTREMITIES: No pedal edema or cyanosis. LABORATORY DATA: I have personally reviewed and interpreted each of the patient?s relevant lab tests, abnormal findings are below: Date 09/11/24 10/09/24 ??WHITE?BLOOD?COUNT?(Thou/mm3) ? 11.8?H ??RED?BLOOD?COUNT?(Miln/mm3) ? 3.83?L ??HEMOGLOBIN?(gm/dl) ? 11.2?L ??HEMATOCRIT?(%) ? 34.8?L ??PLATELET?COUNT?(Thou/mm3) ? 337 ??NEUTROPHILS?%,?AUTO?(%) ? 60 ??LYMPH?%,?AUTO?(%) ? 29 ??NEUTROPHILS,?AUTO?(Thou/mm3) ? 7.1 ??GLUCOSE,RANDOM?(mg/dL) 298?H 193?H ??BLOOD?UREA?NITROGEN?(mg/dL) 15 12 ??CREATININE?(mg/dL) 1.00 1.20 ??SODIUM?(mmol/L) 138 136 ??POTASSIUM?(mmol/L) 4.0 4.0 ??CHLORIDE?(mmol/L) 100 105 ??CrCl?(CandG)?(ml/min) 52.33 43.11 ??AST/SGOT?(Unit/L) 46?H 30 ??ALT/SGPT?(Unit/L) 40 23 ??ALKALINE?PHOSPHATASE?(Unit/L) 288?H 193?H ??BILIRUBIN,?TOTAL?(mg/dL) 0.2?L 0.3 ??PROTEIN?TOTAL?(gm/dl) 6.7 7.6 ??ALBUMIN,?SERUM?(gm/dl) 3.8 4.1 ??GLOBULIN?(gm/dl) 2.9 3.5 ??ALBUMIN/GLOBULIN?RATIO 1.3 1.2 ??CALCIUM,?SERUM?(mg/dL) 8.5 8.9 ??CALCIUM?SERUM?(CORRECTED)?(mg/dL) 8.7 8.9 ??CEA?(O*)?(ng/ml) ? 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 pTis N0 M0 well-differentiated adenocarcinoma, intramucosal in a polyp PET CT scan/CT chest abdomen pelvis with IV contrast do not reveal any residual disease. Last scan done on 03/14/2024 Genetic testing for Blackburn syndrome negative Type 2 diabetes currently on insulin. Hepatitis panel is negative MRCP is negative Assessment and Plan: Mariel Moore is a patient with a history of colon cancer and biliary cancer, presenting for follow-up with stable weight but decreased appetite and altered taste sensation. History of Colon Cancer and Biliary Cancer Assessment: Patient's Netera testing for cancer came back negative for both colon cancer and biliary cancer. CT scan also showed no evidence of cancer. Despite the negative results, the patient remains at high risk for cancer recurrence. The patient has an indwelling port, which was considered for removal due to recent blistering and itching around the insertion site. Genetic testing was previously performed and came back negative, with a breast cancer risk estimated at about 3%. Plan: - Remove indwelling port due to recent complications (blistering and itching) - Continue surveillance for cancer recurrence - Maintain current follow-up schedule with oncology - Encourage protein intake to maintain strength, despite decreased appetite - Annual mammogram for breast cancer screening (last performed in summer of previous year) Decreased Appetite and Altered Taste Assessment: Patient reports stable weight at 138 pounds, consistent with weight recorded in 2023. However, appetite is decreased due to altered taste sensation, affecting food enjoyment and potentially impacting nutritional intake. Plan: - Encourage increased protein intake, particularly eggs or similar high-protein foods - Monitor weight at follow-up visits ORDERS: Order # Description [id number] Follow Up 3 Week + Comprehensive Metabolic Panel - 12 + CBC with Auto Diff + CEA RETURN TO CLINIC: I reviewed the diagnosis, prognosis, and recommended treatment/procedure options with the patient (and/or their legal artists' booking representative), including the potential benefits, risks, side effects and alternative therapies. We also discussed the option of no treatment and the possibility of clinical trial participation, if applicable. All questions were addressed, and they demonstrated understanding. They provided informed consent to proceed with the proposed plan of care. BILLING AND COMPLIANCE: I reviewed external records from providers outside my specialty as summarized above. I spent a total of 50 minutes on this patient?s care on the day of their visit excluding time spent related to any billed procedures. This time includes time spent with the patient as well as time spent documenting in the medical record, reviewing patients records and tests, obtaining history, placing orders, communicating with other healthcare professionals, counseling the patient, family or caregiver, and/or care coordination for the diagnoses above. Electronically Signed by: Janes Irene MD T: 2:03 PM CC: PCP: Janes Irene Referring: Janes Irene This document was completed utilizing speech recognition software. Grammatical errors, random word insertions, pronoun errors, and incomplete sentences are an occasional consequence of this system due to software limitations, ambient noise, and hardware issues. Any formal questions or concerns about the content, text or information contained within the body of this dictation should be directly addressed to the provider for clarification.
--- NOTE | 2025-01-21 01:28 | CTCFLWUP_ITS ---
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 Patient has completed FOLFOX on 09/12/2024. Patient doing well Chief Complaint Follow-up for cancer treatment, review of recent CEA and tumor marker test results History of Present Illness Patient completed 12 cycles of chemotherapy The patient reports adherence to dietary recommendations provided during previous visits, including avoiding milk and other specified foods. She states that she has been feeling better since following these guidelines. The patient expresses concern about the possibility of cancer recurrence, indicating ongoing anxiety about her condition despite improvements. No specific symptoms or complaints are mentioned by the patient during this visit. The focus appears to be on monitoring her response to treatment and discussing her progress. Medical History - Gallbladder cancer, previously diagnosed - Unspecified cancer, previously diagnosed with high tumor markers Medications and Supplements - Chemotherapy - Currently on cycle 10 out of 12 - Working effectively Social History - Diet: Following dietary recommendations, avoiding milk and certain foods as advised by the doctor - Nutrition: Advised to eat more protein-rich and plant-based diet, including vegetables and fruits - Substance Use: Advised to avoid Tylenol Laboratory, Imaging, and Diagnostic Test Results - Date: Not specified (Recent) - CEA: 5.3 - Previous results: - CEA: 6.4 (Last time, date not specified) - CEA: 55 (May, not specified) - Naterra testing: Undetectable (Recent) - Previous results: - Naterra testin (April, year not specified) - Naterra testing: High (Before April, date not specified) - Other cancer marker (gallbladder): Negative (Recent) ONCOLOGY HISTORY: DIAGNOSIS: Malignant neoplasm of ascending colon [ICD10] C18.2 DATE OF DIAGNOSIS: 11/20/2023 STAGE/TNM: Stage 4 colon and localized gall bladder TREATMENT HISTORY: Care?Plan Start?Date Cycle Day Intent mFOLFOX-6?-?5FU?400?+?2400?CIV,?LVR?400,OXALIplat?85 02/15/2024 1 14 Curative?(adjuvant) Patient completed FOLFOX cycle 12 on 09/12/2024 HISTORY OF PRESENT ILLNESS: Shelley Campos is a 69-year-old [place] speaking Other female with with following oncology history. 09/16/2015: Ms. Campos had a left hemicolectomy Pathology 11/20/2023-tumor site cecum well-differentiated G1 adenocarcinoma 2.5 x 1 cm proximal distal radial uninvolved by tumor No regional lymph node metastasis number of lymph nodes examined 11 number of lymph nodes involved 6 tumor deposits present in 2 T3 tumor invades through the muscularis propria into pericolorectal tissue pN2a and the tumor except extensive necrosis No loss of expression ANNAMARIA-no MMR Gallbladder showed simple cholecystectomy adenocarcinoma at the intestinal-type well-differentiated tumor present deep to the muscular layer but does not demonstrate reaching the serosa liver parenchyma margin cannot be assessed 1 lymph nodes submitted negative for cancer T2 N0 PET CT scan 01/17/2024 shows 12 mm hypermetabolic focus anterior abdominal wall recommend high-resolution CT abdomen pelvis post IV contrast also noted hypermetabolic carotid triangle lymphadenopathy 11 mm and 8 mm in the left and right carotid triangle respectively. No night simona hypermetabolism in the chest no lung nodules. 11/18/2023: Hemoglobin 8.4, MCV 72, WBC 15.3, ANC 9.2, platelets 474,000. 11/17/2023: Patient had colonoscopy done and found to have a cecal mass. Biopsy showed well-differentiated invasive adenocarcinoma. 11/18/2023: CT scan of the chest abdomen and pelvis with IV contrast 11/19/2023: CEA 61.9 11/20/2023: Ms. Campos had exploratory laparotomy, right colectomy and cholecystectomy. Ms. Campos was found to have near obstructing tumor of the cecum, distended gallbladder with multiple gallstones and chronic cholecystitis. Anterior surface of the liver was smooth without any nodules or lesions. No evidence of omental or peritoneal nodules. PAST MEDICAL HISTORY: HYPERTENSION DIABETES MELLITUS ANEMIA COLON CA 11/2023 PAST SURGICAL HISTORY: PORT A CATH INSERTION 12/22/23 C SECTION X1 IN 1975 [place] EXPLORATORY LAPARTOMOMY 11/20/23 ANAYELI VIEW CARPAL TUNNEL SX BILATERAL RIGHT SHOULDER SX 1998 LEFT KNEE SURGERY OTHER MEDICAL HISTORY/CONDITIONS: HYPERTENSION DIABETES MELLITUS ANEMIA COLON CA 11/2023 PORT A CATH INSERTION 12/22/23 C SECTION X1 IN 1975 [place], [place] EXPLORATORY LAPARTOMOMY 11/20/23 ANAYELI CINDY CARPAL TUNNEL SX BILATERAL RIGHT SHOULDER SX 1998 LEFT KNEE SURGERY FAMILY HISTORY: Father:?FATHER?PROSTATE?CANCER Mother:?DENIES Sibling:?DENIES Children:?DENIES Cancer?History:?COLON?[place] SOCIAL HISTORY: 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 ferrous sulfate - 325 mg (65 mg iron) 1 tab Daily 2. Januvia - 25 mg 1 tab Daily 3. Lantus U-100 Insulin - 100 unit/mL As directed 4. Levothroid - 25 mcg 1 tab In the morning 5. losartan - 50 mg 1 tab Daily 6. multivitamin - Capsule Daily Medications Last Reconciled by Gabi Lloyd MA on 11/14/2024 ALLERGIES: ibuprofen REVIEW OF SYSTEMS: A complete 14-point review of systems was performed and is negative except as noted in interval history. PHYSICAL EXAMINATION: VITAL SIGNS: Temperature?97, B/P?125/77, Oxygen?Saturation?98% Weight?138?lbs (Change?since?10/09/24:?0?lbs) PAIN: 0 - No pain ECOG Performance Status: 0 - Asymptomatic and fully active Alert oriented x 4 CHEST: Clear to auscultation. No wheezes or rales audible. CARDIAC: Rhythm regular, no murmurs or gallops present. ABDOMEN: Soft. Well-healed mid abdominal incision without any signs of infection No hepatomegaly. No splenomegaly. EXTREMITIES: No pedal edema or cyanosis. LABORATORY DATA: I have personally reviewed and interpreted each of the patient?s relevant lab tests, abnormal findings are below: Date 11/13/24 ??WHITE?BLOOD?COUNT?(Thou/mm3) 13.1?H ??RED?BLOOD?COUNT?(Miln/mm3) 3.69?L ??HEMOGLOBIN?(gm/dl) 10.6?L ??HEMATOCRIT?(%) 32.7?L ??PLATELET?COUNT?(Thou/mm3) 355 ??NEUTROPHILS?%,?AUTO?(%) 47 ??LYMPH?%,?AUTO?(%) 42 ??NEUTROPHILS,?AUTO?(Thou/mm3) 6.1 ??GLUCOSE,RANDOM?(mg/dL) 105 ??BLOOD?UREA?NITROGEN?(mg/dL) 19 ??CREATININE?(mg/dL) 1.10 ??SODIUM?(mmol/L) 138 ??POTASSIUM?(mmol/L) 4.2 ??CHLORIDE?(mmol/L) 104 ??CrCl?(CandG)?(ml/min) 48.39 ??AST/SGOT?(Unit/L) 43?H ??ALT/SGPT?(Unit/L) 33 ??ALKALINE?PHOSPHATASE?(Unit/L) 177?H ??BILIRUBIN,?TOTAL?(mg/dL) 0.2?L ??PROTEIN?TOTAL?(gm/dl) 7.6 ??ALBUMIN,?SERUM?(gm/dl) 4.0 ??GLOBULIN?(gm/dl) 3.6?H ??ALBUMIN/GLOBULIN?RATIO 1.1?L ??CALCIUM,?SERUM?(mg/dL) 8.7 ??CALCIUM?SERUM?(CORRECTED)?(mg/dL) 8.7 ??CEA?(O*)?(ng/ml) 2.9 ??RETICULOCYTE?ABSOLUTE?AUTO?(Biln/L) 37.4 ASSESSMENT/PLAN: Synchronously detected MMR proficient, 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 pTis N0 M0 well-differentiated adenocarcinoma, intramucosal in a polyp PET CT scan/CT chest abdomen pelvis with IV contrast do not reveal any residual disease. Last scan done on 03/14/2024 Genetic testing for Blackburn syndrome negative Type 2 diabetes currently on insulin. Hepatitis panel is negative MRCP is negative CEA level is 4.4 and patient's hemoglobin have improved Completed 12 cycles of chemotherapy Will check for iron deficiency Will continue to monitor with CEA [facility] every 6 months for first 5 years RETURN TO CLINIC: I reviewed the diagnosis, prognosis, and recommended treatment/procedure options with the patient (and/or their legal claims representative), including the potential benefits, risks, side effects and alternative therapies. We also discussed the option of no treatment and the possibility of clinical trial participation, if applicable. All questions were addressed, and they demonstrated understanding. They provided informed consent to proceed with the proposed plan of care. BILLING AND COMPLIANCE: I reviewed external records from providers outside my specialty as summarized above. I spent a total of 50 minutes on this patient?s care on the day of their visit excluding time spent related to any billed procedures. This time includes time spent with the patient as well as time spent documenting in the medical record, reviewing patients records and tests, obtaining history, placing orders, communicating with other healthcare professionals, counseling the patient, family or caregiver, and/or care coordination for the diagnoses above. Electronically Signed by: Janes Irene MD T: 1:26 AM CC: PCP: {Admin.Pri_MD_ID*[email or web address]@} Referring: {Admin.Ref_MD_ID*[email or web address]@} This document was completed utilizing speech recognition software. Grammatical errors, random word insertions, pronoun errors, and incomplete sentences are an occasional consequence of this system due to software limitations, ambient noise, and hardware issues. Any formal questions or concerns about the content, text or information contained within the body of this dictation should be directly addressed to the provider for clarification.
== END 2024-11-08 23:59 | disposition home or self-care (01) ==
LOC: SCTC 08:43
PROVIDERS: PCP Family Medicine; Referring Provider Internal Medicine Hematology & Oncology; Visit Provider Internal Medicine Hematology & Oncology
DX: C18.2 Malignant neoplasm of ascending colon (principal); C23 Malignant neoplasm of gallbladder; Z90.49 Acquired absence of other specified parts of digestive tract; E11.9 Type 2 diabetes mellitus without complications; Z79.4 Long term (current) use of insulin
CPT/HCPCS: 36591; 80053; 82378; 85025; 99212; 99424; 99425; A4216; J1642; G0463

== ENCOUNTER 2024-11-14 11:35 | Outpatient (RCR) | payer MEDICARE, MEDICAID, SELFPAY ==
[2024-11-13 16:26] LABS: Basophils # (Auto) 0.1 Thou/mm3 (0.0-0.2); Basophils % (Auto) 1 % (0-2.5); Eosinophils # (Auto) 0.3 Thou/mm3 (0.0-0.5); Eosinophils % (Auto) 2 % (0-10); Hematocrit 32.7 % (36.0-46.0); Hemoglobin 10.6 g/dL (12.0-16.0); Immature Granulocytes Auto 0.05 Thou/mm3 (0.00-0.00); Immature Reticulocyte Fraction 10.6 % (3.0-15.9); Lymphocytes # (Auto) 5.6 Thou/mm3 (1.0-4.8); Lymphocytes % (Auto) 42 % (10-50); Mean Corpuscular HGB Conc 32.4 g/dl (31.0-37.0); Mean Corpuscular Hemoglobin 28.7 pg (25.0-35.0); Mean Corpuscular Volume 89 fL (80-100); Monocytes # (Auto) 1.0 Thou/mm3 (0.0-0.8); Monocytes % (Auto) 8 % (0-12); Neutrophils # (Auto) 6.1 Thou/mm3 (1.8-7.7); Neutrophils % (Auto) 47 % (37-80); Nucleated Red Blood Cell # 0.00 Thou/mm3 (0.00-0.00); Nucleated Red Blood Cell % 0 /100 WBC (0); Platelet Count 355 Thou/mm3 (140-440); RDW Standard Deviation 42.8 fL (36.4-46.3); Red Blood Count 3.69 Miln/mm3 (4.00-5.20); Reticulocyte % (Auto) 1.0 % (0.5-1.5); Reticulocyte Absolute Auto 37.4 Biln/L (25.0-75.0); Reticulocyte Hgb Content 31.1 pg (28.0-35.0); White Blood Count 13.1 Thou/mm3 (3.6-11.0)
[2024-11-13 16:45] LABS: Alanine Aminotransferase 33 U/L (10-49); Albumin, Serum 4.0 gm/dL (3.4-4.8); Albumin/Globulin Ratio 1.1 (1.2-2.2); Alkaline Phosphatase 177 U/L (46-116); Anion Gap 9 (7-16); Aspartate Amino Transferase 43 U/L (0-34); BUN/Creatinine Ratio 17 Ratio (12-20); Bilirubin,Total 0.2 mg/dL (0.3-1.2); Blood Urea Nitrogen 19 mg/dL (9-23); Calcium 8.7 mg/dL (8.3-10.6); Calcium (Corrected) 8.7 mg/dL (8.5-10.1); Carbon Dioxide 24.9 mMol/L (20.0-31.0); Chloride 104 mMol/L (98-107); Creatinine (Component) 1.1 mg/dL (0.6-1.3); Globulin 3.6 gm/dL (2.3-3.5); Glucose 105 mg/dL (74-106); Osmolality,Calculated 277 (275-295); Potassium 4.2 mMol/L (3.4-5.1); Sodium 138 mMol/L (136-145); Total Protein 7.6 gm/dL (5.7-8.2); eGFR 54 See Note
[2024-11-13 16:48] LABS: Carcinoembryonic Antigen 2.9 ng/mL (0.0-5.0)
--- NOTE | 2024-11-19 02:55 | CTCFLWUP_ITS ---
Patient: SHELLEY CAMPOS : 1955 Page 6 of 8 FOLLOW UP NOTE DATE OF SERVICE: 11/14/2024 NAME: SHELLEY CAMPOS ACCOUNT: [id number] : 1955 AGE: 69 INTERVAL HISTORY: Visit summary Milady Rosa, a female with gallbladder cancer and colon cancer history presented for chemotherapy follow-up. She reported adherence to dietary restrictions and feeling better overall. Laboratory results showed significant improvement with CEA decreasing from 55 in May to current 5.3, and previo usly elevated Naterra marker now undetectable. Patient completed her chemotherapy. Patient is doing well now. Medical History - Gallbladder cancer, previously diagnosed - Unspecified cancer, previously diagnosed with high tumor markers Medications and Supplements - Chemotherapy - Currently on cycle 10 out of 12 - Working effectively Social History - Diet: Following dietary recommendations, avoiding milk and certain foods as advised by the doctor - Nutrition: Advised to eat more protein-rich and plant-based diet, including vegetables and fruits - Substance Use: Advised to avoid Tylenol Laboratory, Imaging, and Diagnostic Test Results - Date: Not specified (Recent) - CEA: 5.3 - Previous results: - CEA: 6.4 (Last time, date not specified) - CEA: 55 (May, not specified) - Naterra testing: Undetectable (Recent) - Previous results: - Naterra testin (April, not specified) - Naterra testing: High (Before April, date not specified) - Other cancer marker (gallbladder): Negative (Recent) ONCOLOGY HISTORY:?[facility] Hx? DIAGNOSIS: Malignant neoplasm of ascending colon [ICD10] C18.2 DATE OF DIAGNOSIS: 11/20/2023 STAGE/TNM: Stage 4 colon and localized gall bladder TREATMENT HISTORY: Care?Plan Start?Date Cycle Day Intent mFOLFOX-6?-?5FU?400?+?2400?CIV,?LVR?400,OXALIplat?85 02/15/2024 1 14 Curative?(adjuvant) Last chemotherapy was on 09/12/2024 HISTORY OF PRESENT ILLNESS: Shelley Campos is a 69-year-old S[place] speaking Other female with with following oncology history. 09/16/2015: Ms. Campos had a left hemicolectomy Pathology 11/20/2023-tumor site cecum well-differentiated G1 adenocarcinoma 2.5 x 1 cm proximal distal radial uninvolved by tumor No regional lymph node metastasis number of lymph nodes examined 11 number of lymph nodes involved 6 tumor deposits present in 2 T3 tumor invades through the muscularis propria into pericolorectal tissue pN2a and the tumor except extensive necrosis No loss of expression ANNAMARIA-no MMR Gallbladder showed simple cholecystectomy adenocarcinoma at the intestinal-type well-differentiated tumor present deep to the muscular layer but does not demonstrate reaching the serosa liver parenchyma margin cannot be assessed 1 lymph nodes submitted negative for cancer T2 N0 PET CT scan 01/17/2024 shows 12 mm hypermetabolic focus anterior abdominal wall recommend high-resolution CT abdomen pelvis post IV contrast also noted hypermetabolic carotid triangle lymphadenopathy 11 mm and 8 mm in the left and right carotid triangle respectively. No night simona hypermetabolism in the chest no lung nodules. 11/18/2023: Hemoglobin 8.4, MCV 72, WBC 15.3, ANC 9.2, platelets 474,000. 11/17/2023: Patient had colonoscopy done and found to have a cecal mass. Biopsy showed well-differentiated invasive adenocarcinoma. 11/18/2023: CT scan of the chest abdomen and pelvis with IV contrast 11/19/2023: CEA 61.9 11/20/2023: Ms. Campos had exploratory laparotomy, right colectomy and cholecystectomy. Ms. Campos was found to have near obstructing tumor of the cecum, distended gallbladder with multiple gallstones and chronic cholecystitis. Anterior surface of the liver was smooth without any nodules or lesions. No evidence of omental or peritoneal nodules. PAST MEDICAL HISTORY: HYPERTENSION DIABETES MELLITUS ANEMIA COLON CA 11/2023 PAST SURGICAL HISTORY: PORT A CATH INSERTION 12/22/23 C SECTION X1 IN 1975 [place], [place] EXPL[place] LAPARTOMOMY 11/20/23 ANAYELI VIEW CARPAL TUNNEL SX BILATERAL RIGHT SHOULDER SX 1998 LEFT KNEE SURGERY OTHER MEDICAL HISTORY/CONDITIONS: HYPERTENSION DIABETES MELLITUS ANEMIA COLON CA 11/2023 PORT A CATH INSERTION 12/22/23 C SECTION X1 IN 1975 [place], [place] EXPL[place] LAPARTOMOMY 11/20/23 ANAYELI VIEW CARPAL TUNNEL SX BILATERAL RIGHT SHOULDER SX 1998 LEFT KNEE SURGERY FAMILY HISTORY: Father:?FATHER?PROSTATE?CANCER Mother:?DENIES Sibling:?DENIES Children:?DENIES Cancer?History:?COLON?[place] SOCIAL 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 ferrous sulfate - 325 mg (65 mg iron) 1 tab Daily 2. Januvia - 25 mg 1 tab Daily 3. Lantus U-100 Insulin - 100 unit/mL As directed 4. Levothroid - 25 mcg 1 tab In the morning 5. losartan - 50 mg 1 tab Daily 6. multivitamin - Capsule Daily?Palabra Meds? Medications Last Reconciled by Gabi Lloyd MA on 11/14/2024 ALLERGIES: ibuprofen REVIEW OF SYSTEMS: A complete 14-point review of systems was performed and is negative except as noted in interval history. PHYSICAL EXAMINATION:?[facility] PE? VITAL SIGNS: Temperature?98, B/P?119/67, Oxygen?Saturation?97% Weight?143?lbs (Change?since?11/13/24:?1?lbs) PAIN: 0 - No pain ECOG Performance Status: 0 - Asymptomatic and fully active Alert oriented x 4 CHEST: Clear to auscultation. No wheezes or rales audible. CARDIAC: Rhythm regular, no murmurs or gallops present. ABDOMEN: Soft. Well-healed mid abdominal incision without any signs of infection No hepatomegaly. No splenomegaly. EXTREMITIES: No pedal edema or cyanosis. LABORATORY DATA: I have personally reviewed and interpreted each of the patient?s relevant lab tests, abnormal findings are below: Date 11/13/24 ??WHITE?BLOOD?COUNT?(Thou/mm3) 13.1?H ??RED?BLOOD?COUNT?(Miln/mm3) 3.69?L ??HEMOGLOBIN?(gm/dl) 10.6?L ??HEMATOCRIT?(%) 32.7?L ??PLATELET?COUNT?(Thou/mm3) 355 ??NEUTROPHILS?%,?AUTO?(%) 47 ??LYMPH?%,?AUTO?(%) 42 ??NEUTROPHILS,?AUTO?(Thou/mm3) 6.1 ??GLUCOSE,RANDOM?(mg/dL) 105 ??BLOOD?UREA?NITROGEN?(mg/dL) 19 ??CREATININE?(mg/dL) 1.10 ??SODIUM?(mmol/L) 138 ??POTASSIUM?(mmol/L) 4.2 ??CHLORIDE?(mmol/L) 104 ??CrCl?(CandG)?(ml/min) 48.39 ??AST/SGOT?(Unit/L) 43?H ??ALT/SGPT?(Unit/L) 33 ??ALKALINE?PHOSPHATASE?(Unit/L) 177?H ??BILIRUBIN,?TOTAL?(mg/dL) 0.2?L ??PROTEIN?TOTAL?(gm/dl) 7.6 ??ALBUMIN,?SERUM?(gm/dl) 4.0 ??GLOBULIN?(gm/dl) 3.6?H ??ALBUMIN/GLOBULIN?RATIO 1.1?L ??CALCIUM,?SERUM?(mg/dL) 8.7 ??CALCIUM?SERUM?(CORRECTED)?(mg/dL) 8.7 ??CEA?(O*)?(ng/ml) 2.9 ??RETICULOCYTE?ABSOLUTE?AUTO?(Biln/L) 37.4 ASSESSMENT/PLAN:?Mat Irene Assessment/Plan? 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 pTis N0 M0 well-differentiated adenocarcinoma, intramucosal in a polyp PET CT scan/CT chest abdomen pelvis with IV contrast do not reveal any residual disease. Last scan done on 03/14/2024 Genetic testing for Blackburn syndrome negative Type 2 diabetes currently on insulin. Hepatitis panel is negative MRCP is negative Completed chemotherapy with FOLFOX Last treatment was in September Kary is negative on 10/28/2024 Continue to monitor ORDERS: Order # Description [id number] Follow Up 4 Month [id number] CEA + Comprehensive Metabolic Panel - 12 + CBC with Auto Diff RETURN TO CLINIC: I reviewed the diagnosis, prognosis, and recommended treatment/procedure options with the patient (and/or their legal data entry representative), including the potential benefits, risks, side effects and alternative therapies. We also discussed the option of no treatment and the possibility of clinical trial participation, if applicable. All questions were addressed, and they demonstrated understanding. They provided informed consent to proceed with the proposed plan of care. BILLING AND COMPLIANCE: I reviewed external records from providers outside my specialty as summarized above. I spent a total of 50 minutes on this patient?s care on the day of their visit excluding time spent related to any billed procedures. This time includes time spent with the patient as well as time spent documenting in the medical record, reviewing patients records and tests, obtaining history, placing orders, communicating with other healthcare professionals, counseling the patient, family or caregiver, and/or care coordination for the diagnoses above. Electronically Signed by: Janes Irene MD T: 2:53 AM CC: PCP: Rd Hickey Referring: Rd Hickey This document was completed utilizing speech recognition software. Grammatical errors, random word insertions, pronoun errors, and incomplete sentences are an occasional consequence of this system due to software limitations, ambient noise, and hardware issues. Any formal questions or concerns about the content, text or information contained within the body of this dictation should be directly addressed to the provider for clarification.
== END 2024-12-09 23:59 | disposition home or self-care (01) ==
LOC: SCTC 11:35
PROVIDERS: PCP Family Medicine; Referring Provider Family Medicine; Visit Provider Internal Medicine Hematology & Oncology
DX: C18.2 Malignant neoplasm of ascending colon (principal); C23 Malignant neoplasm of gallbladder; Z90.49 Acquired absence of other specified parts of digestive tract; E11.9 Type 2 diabetes mellitus without complications; Z79.4 Long term (current) use of insulin
CPT/HCPCS: 36591; 80053; 82378; 85025; 85046; 99211; 99212; G0463

== ENCOUNTER 2025-04-01 10:43 | Outpatient (RCR) | payer MEDICARE, MEDICAID, SELFPAY ==
[2025-03-28 10:51] LABS: Basophils # (Auto) 0.1 Thou/mm3 (0.0-0.2); Basophils % (Auto) 0 % (0-2.5); Eosinophils # (Auto) 0.2 Thou/mm3 (0.0-0.5); Eosinophils % (Auto) 1 % (0-10); Hematocrit 35.9 % (36.0-46.0); Hemoglobin 11.6 g/dL (12.0-16.0); Immature Granulocytes Auto 0.02 Thou/mm3 (0.00-0.00); Lymphocytes # (Auto) 3.8 Thou/mm3 (1.0-4.8); Lymphocytes % (Auto) 32 % (10-50); Mean Corpuscular HGB Conc 32.3 g/dl (31.0-37.0); Mean Corpuscular Hemoglobin 27.5 pg (25.0-35.0); Mean Corpuscular Volume 85 fL (80-100); Monocytes # (Auto) 1.0 Thou/mm3 (0.0-0.8); Monocytes % (Auto) 9 % (0-12); Neutrophils # (Auto) 6.7 Thou/mm3 (1.8-7.7); Neutrophils % (Auto) 57 % (37-80); Nucleated Red Blood Cell # 0.00 Thou/mm3 (0.00-0.00); Nucleated Red Blood Cell % 0 /100 WBC (0); Platelet Count 288 Thou/mm3 (140-440); RDW Standard Deviation 45.4 fL (36.4-46.3); Red Blood Count 4.22 Miln/mm3 (4.00-5.20); White Blood Count 11.7 Thou/mm3 (3.6-11.0)
[2025-03-28 11:14] LABS: Alanine Aminotransferase 36 U/L (10-49); Albumin, Serum 3.9 gm/dL (3.4-4.8); Albumin/Globulin Ratio 0.8 (1.2-2.2); Alkaline Phosphatase 148 U/L (46-116); Anion Gap 10 (7-16); Aspartate Amino Transferase 52 U/L (0-34); BUN/Creatinine Ratio 22 Ratio (12-20); Bilirubin,Total 0.4 mg/dL (0.3-1.2); Blood Urea Nitrogen 20 mg/dL (9-23); Calcium 9.3 mg/dL (8.3-10.6); Calcium (Corrected) 9.4 mg/dL (8.5-10.1); Carbon Dioxide 25.1 mMol/L (20.0-31.0); Chloride 104 mMol/L (98-107); Creatinine (Component) 0.9 mg/dL (0.6-1.3); Globulin 4.9 gm/dL (2.3-3.5); Glucose 70 mg/dL (74-106); Osmolality,Calculated 278 (275-295); Potassium 4.2 mMol/L (3.4-5.1); Sodium 139 mMol/L (136-145); Total Protein 8.8 gm/dL (5.7-8.2); eGFR > 60 See Note
[2025-03-28 12:25] LABS: Carcinoembryonic Antigen 3.5 ng/mL (0.0-5.0)
== END 2025-04-10 23:59 | disposition home or self-care (01) ==
LOC: SCTC 10:43
PROVIDERS: Internal Medicine Hematology & Oncology; PCP Family Medicine; Referring Provider Family Medicine; Visit Provider Nurse Practitioner Family
DX: C18.0 Malignant neoplasm of cecum (principal); C23 Malignant neoplasm of gallbladder; E11.9 Type 2 diabetes mellitus without complications; Z79.4 Long term (current) use of insulin; N64.4 Mastodynia
CPT/HCPCS: 36591; 80053; 82378; 85025; 99212; A4216; J1642; G0463